=== PATIENT | female | born 1945 | race Two or more races ===

== ENCOUNTER 2022-06-13 16:03 | Inpatient (IN) | payer OTHER, MEDICARE ==
[~2022-06-13] VITALS: Ht 157.5 cm; Wt 55.3 kg
[2022-06-13] MEDS: NACL 0.9% 1,000 ML IV SCH (01:15)
[2022-06-13 16:05] VITALS: BP 101/45
--- NOTE | 2022-06-13 16:18 | NUR ---
ASSUMED PATIENT CARE, NURSING ASSESSMENT COMPLETED.
[2022-06-13] MEDS ORDERED: NACL 0.9% 2,000 ML IV ONE (16:35)
[2022-06-13 17:26] LABS: HEMOGLOBIN 10.5 g/dL (12.0-16.0); MEAN CORPUSCULAR HEMOGLOBIN 26 pg (27-31); MEAN CORPUSCULAR HGB CONC 31 g/dL (33-37); MEAN CORPUSCULAR VOLUME 83.6 fL (80-94); PLATELET COUNT (AUTO) 316 K/uL (140-450); RED BLOOD CELL COUNT(AUTO) 4.06 MIL/uL (4.20-5.40); RED CELL DISTRIBUTION WIDTH 21.5 % (11.6-13.7)
[2022-06-13 17:29] LABS: WHITE BLOOD COUNT (AUTO) 32.2 K/uL (4.8-10.8)
--- NOTE | 2022-06-13 17:42 | NUR ---
CT SCAN COMPLETED. BACK FROM CT.
[2022-06-13 17:43] LABS: PROTHROMBIN TIME 11.1 secs (10.8-13.4)
[2022-06-13 17:46] LABS: ANION GAP 13.1 (8-16); ASPARTATE AMINOTRANSFERASE 62 U/L (15-37); CARBON DIOXIDE 25.9 mmol/L (21-32); CHLORIDE 105 mmol/L (98-107); CREATININE 1.9 mg/dL (0.6-1.3); GLUCOSE 167 mg/dL (74-106); MAGNESIUM 2.4 mg/dL (1.8-2.4); PHOSPHORUS 4.2 mg/dL (2.5-4.9); SODIUM SERUM 140 mmol/L (136-145); TOTAL BILIRUBIN 0.3 mg/dL (0.0-1.0)
[2022-06-13 17:47] LABS: UREA NITROGEN, BLOOD 85 mg/dL (7-18)
[2022-06-13 17:56] LABS: LYMPHOCYTES % (MANUAL) 4 % (20-46)
[2022-06-13 17:57] LABS: METAMYELOCYTES % 1 % (0-0); MONOCYTES % (MANUAL) 2 % (5-12)
[2022-06-13] MEDS ORDERED: metroNIDAZOLE 500 MG/NS PREMIX 100 ML IV ONE (18:05)
[2022-06-13] MEDS ORDERED: PIPERACILLIN/TAZOBACTAM 3.375 GM in DEXTROSE 5% 50 ML IV ONE (18:05)
[2022-06-13 18:27] LABS: APPEARANCE,URINE CLEAR (CLEAR); BILIRUBIN,URINE 1+ (NEGATIVE); BLOOD, URINE 3+ (NEGATIVE); COLOR,URINE YELLOW (YELLOW); LEUKOCYTE ESTERASE ,URINE 1+ (NEGATIVE); NITRITE, URINE POSITIVE (NEGATIVE); PH,URINE 5.5 (5.0-9.0); UGLUCOSE NEGATIVE (NEGATIVE)
[2022-06-13] MEDS ORDERED: PIPERACILLIN/TAZOBACTAM 3.375 GM VIAL IV ONE (18:41)
[2022-06-13 18:43] LABS: RBC,URINE 11-20 (MOD) /HPF (0-5)
[2022-06-13 18:44] LABS: CALCIUM OXALATE CRYSTALS,UR 0-10 /HPF (None Seen)
--- NOTE | 2022-06-13 19:17 | NUR ---
Received report from LIS Finley and continue care of patient.
[2022-06-13] MEDS ORDERED: BISA-218 RC (19:37)
[2022-06-13] MEDS ORDERED: ZINC220C9 GT (19:37)
[2022-06-13] MEDS ORDERED: NUTR30LI2 GT (19:37)
[2022-06-13] MEDS ORDERED: GABA300C GT (19:37)
[2022-06-13] MEDS ORDERED: LOSA100T2 GT (19:37)
[2022-06-13] MEDS ORDERED: ATOR10TA GT (19:37)
[2022-06-13] MEDS ORDERED: ASCO-5 GT (19:37)
[2022-06-13] MEDS ORDERED: DONE5TAB6 GT (19:37)
[2022-06-13] MEDS ORDERED: ESCI10TA GT (19:37)
[2022-06-13] MEDS ORDERED: DOCU-299 GT (19:37)
[2022-06-13] MEDS ORDERED: AMIO100T3 GT (19:38)
--- NOTE | 2022-06-13 19:38 | NUR ---
Med-rec reviewed.
--- NOTE | 2022-06-13 20:32 | NUR ---
COVID-19 swab collected and sent to lab.
--- NOTE | 2022-06-13 20:38 | NUR ---
Called Bridget (Grand Daughter) [phone] to update patient's status.
[2022-06-13] MEDS ORDERED: NACL 0.9% 1,000 ML IV ONE (20:45)
--- NOTE | 2022-06-13 20:45 | NUR ---
Patient BP 88/40 , Dr. De La Cruz notified.
--- NOTE | 2022-06-13 20:47 | NUR ---
Spoke with Jeanette Mccormick (Daughter) to update patient status.
[2022-06-13] MEDS ORDERED: HYDROmorphone 1 MG/ML AMP IVP PRN (21:15)
[2022-06-13] MEDS ORDERED: ACETAMINOPHEN 325 MG TAB PO PRN (21:15)
[2022-06-13] MEDS ORDERED: HYDROcodone/APAP 5/325 MG 1 TAB TAB PO PRN (21:15)
[2022-06-13] MEDS ORDERED: ONDANSETRON 4 MG/2 ML VIAL IVP PRN (21:15)
--- NOTE | 2022-06-13 21:40 | NUR ---
Telephone consent with patient's family (Jeanette Jace-Daughter) , please see consent form.
--- NOTE | 2022-06-13 21:53 | NUR ---
Dr. De La Cruz at bedside for procedure- Central line placement.
--- NOTE | 2022-06-13 22:35 | NUR ---
Patient had one bowel movement and cleaned and change diaper.
--- NOTE | 2022-06-13 22:40 | NUR ---
Removed washington's cath
--- NOTE | 2022-06-13 22:41 | NUR ---
# 16 FR Greene catheter with 10 ml utilizing sterile technique. Immediate return of 10 ml yellow, cloudy urine noted. Bedside drainage bag placed below level of bladder. Urine sample collected and sent to lab. Pt tolerated procedure well.
[2022-06-13] MEDS ORDERED: NOREPINEPHRINE 4 MG in DEXTROSE 5% 250 ML IV PRN (22:45)
--- NOTE | 2022-06-13 22:51 | NUR ---
DR. CAMACHO IN DEPARTMENT SPEAKING WITH ER DR. ROCHE
[2022-06-13] MEDS: LINEZOLID 600MG PREMIX 300 ML IV SCH (22:55)
[2022-06-13] MEDS ORDERED: NOREPINEPHRINE 4 MG/4 ML VIAL IV ONE ×2 (23:17→23:18)
[2022-06-14] VITALS (15 sets, daily range): BP systolic 94–162; BP diastolic 50–94
--- NOTE | 2022-06-14 00:16 | NUR ---
Report given to LIS Neal and endorse care of patient.
--- NOTE | 2022-06-14 00:47 | NUR ---
TRANSFER OF CARE FROM FRANNIE, RN. VITALS AT TIME OF TRANSFER: HR = 134, O2 SAT = 100%, R = 14, BP = 77/40, PATIENT IS RECEIVING SUPPLEMENTAL OXYGEN, 4L VIA NC. PATIENT HAS CENTRAL LINE, RIGHT GROIN. CURRENTLY RECEIVING LEVOPHED 4, @ 4MCG/MIN. WILL CONTINUE TO MONITOR PATIENT FOR ANY CHANGE IN CONDITION.
--- NOTE | 2022-06-14 01:09 | NUR ---
AXILLARY TEMP = 98.8F
--- NOTE | 2022-06-14 04:22 | NUR ---
PAGE SENT TO ADULT FAMILY HOME PROGRAM MANAGER MD (DR. OLEA) REGARDING PATIENT'S INCREASING TACHYCARDIA
--- NOTE | 2022-06-14 04:50 | NUR ---
PHONE CALL RECEIVED FROM PATIENT'S GRAND-DTRBOGDAN. PROVIDED CURRENT UPDATE, ALL QUESTIONS ANSWERED
--- NOTE | 2022-06-14 04:55 | NUR ---
RECEIVED CALL BACK FROM DR. LINTON, REGARDING PATIENT'S TACHYCARDIA. PATIENT WITH INCREASING HEART RATE RANGING FROM THE LOW 100'S TO THE HIGH 150'S. MD NOTIFIED, NO NEW ORDER FOR TREATMENT PROVIDER. PATIENT NEEDS CONSULT WITH CARDIOLOGY. REQUEST HAS BEEN SUBMITTED. WILL CONTINUE TO MONITOR PATIENT FOR ANY CHANGES IN CONDITION
[2022-06-14] MEDS: metroNIDAZOLE 500 MG/NS PREMIX 100 ML IV SCH ×3 (05:00→20:45)
[2022-06-14] MEDS ORDERED: PIPERACILLIN/TAZOBACTAM 2.25 GM VIAL IV ONE (05:07)
[2022-06-14] MEDS: HYDROCORTISONE NA SUCC 100 MG/2 ML VIAL IV SCH ×3 (05:20→20:49)
[2022-06-14] MEDS: PIPERACILLIN/TAZOBACTAM 2.25 GM in DEXTROSE 5% 50 ML IV SCH ×3 (05:20→20:50)
--- NOTE | 2022-06-14 05:34 | NUR ---
Abelino guerrero in [facility] - 06/14/22 at [address] Agudelo examining patient.
[2022-06-14] MEDS ORDERED: NOREPINEPHRINE 4 MG/4 ML VIAL IV ONE (08:24)
--- NOTE | 2022-06-14 08:31 | NUR ---
BEDSIDE REPORT TO SABRINA IN ICU 8. AWAKE AND ALERT X 1, SAMI SPEAKING COOPERATIVE WITH CARE, NO COMBATIVE AND NOT PULLING LINES. CONTACT PRECAUTIONS NOTED DUE TO REPORTED HISTORY OF DIARRHEA. LEVOPHED INFUSING TO R GROIN TRIPLE LUMEN CATHETER
--- NOTE | 2022-06-14 08:39 | NUR ---
Patient will be admitted to care of SABRINA. Admited to ICU 8ICU. Will go to room. Belongings list completed. Report to .
--- NOTE | 2022-06-14 08:40 | NUR ---
Received bedside report from ED RN, patient is awake and alert, mauritian speaking, oriented to self. Patient denies pain at present. Telemetry reveals AF RVR 130's, patient has Levophed infusing via right femoral TLC for BP support. During repositioning and skin assessment, patient noted with unstageable sacral wound, wound cleaned, packed with wet to dry and photographed. Also MAD noted to perineum. Greene in place, dominic urine noted. Will continue to monitor patient.
[2022-06-14 08:41] LABS: ALBUMIN 1.9 g/dL (3.4-5.0); ASPARTATE AMINOTRANSFERASE 75 U/L (15-37); CARBON DIOXIDE 21.4 mmol/L (21-32); CHLORIDE 110 mmol/L (98-107); GLUCOSE 156 mg/dL (74-106); POTASSIUM 3.4 mmol/L (3.5-5.1); SODIUM SERUM 142 mmol/L (136-145); TOTAL BILIRUBIN 0.2 mg/dL (0.0-1.0); UREA NITROGEN, BLOOD 60 mg/dL (7-18)
[2022-06-14 08:48] LABS: BASOPHILS # (AUTO) 0.1 K/uL (0.00-0.22); BASOPHILS % (AUTO) 0.3 % (0.0-2.0); EOSINOPHILS # (AUTO) 0.1 K/uL (0-0.4); EOSINOPHILS % (AUTO) 0.3 % (0.0-4.0); HEMATOCRIT 32.7 % (36-48); HEMOGLOBIN 10.1 g/dL (12.0-16.0); LYMPHOCYTES # (AUTO) 0.7 K/uL (2.5-16.5); LYMPHOCYTES % (AUTO) 2.7 % (20.5-51.1); MEAN CORPUSCULAR HEMOGLOBIN 26 pg (27-31); MEAN CORPUSCULAR HGB CONC 31 g/dL (33-37); MONOCYTES # (AUTO) 3.1 K/uL (0.8-1.0); MONOCYTES % (AUTO) 12.7 % (1.7-9.3); NEUTROPHILS # (AUTO) 20.4 K/uL (1.8-7.7); PLATELET COUNT (AUTO) 335 K/uL (140-450); RED BLOOD CELL COUNT(AUTO) 3.94 MIL/uL (4.20-5.40); RED CELL DISTRIBUTION WIDTH 20.9 % (11.6-13.7); WHITE BLOOD COUNT (AUTO) 24.2 K/uL (4.8-10.8)
--- NOTE | 2022-06-14 09:13 | NUR ---
PATIENT HAS BEEN SCREENED AND CATEGORIZED HIGH NUTRITION RISK. PATIENT WILL BE SEEN WITHIN 1-2 DAYS OF ADMISSION. REVIEWED BY CYDNEY FROST RD
--- NOTE | 2022-06-14 09:30 | NUR ---
Patient is really agitated, and restless, not following commands, pulling at IV sites, electrodes washington and BP cuff. Patient continues behavior despite directives given in Slovak. Patient has removed TLC dressing, dressing replaced. Patient placed in soft wrist restraints. Will continue to monitor.
[2022-06-14] MEDS: NACL 0.9% 1,000 ML IV SCH (09:45)
[2022-06-14] MEDS: DOCUSATE SODIUM 100 MG GELCAP PO SCH (10:31)
[2022-06-14] MEDS: LINEZOLID 600MG PREMIX 300 ML IV SCH ×2 (10:32→20:50)
[2022-06-14] MEDS: LORazepam 1 MG TAB PO PRN (10:32)
[2022-06-14] MEDS ORDERED: PHENYLEPHRINE 10 MG in NACL 0.9% 250 ML IV PRN (11:40)
[2022-06-14] MEDS ORDERED: NOREPINEPHRINE 16 MG in DEXTROSE 5% 250 ML IV PRN (12:00)
[2022-06-14] MEDS ORDERED: KCL 20 MEQ IN 100 mL PREMIX 100 ML IV SCH (12:00)
[2022-06-14] MEDS: AMIODARONE 450 MG in DEXTROSE 5% 250 ML IV SCH ×2 (12:36→20:00)
--- NOTE | 2022-06-14 12:51 | NUR ---
DC PLANNIN YRS OLD FEMALE PATIENT WAS ADMITTED FROM [facility] WITH A DX OF SEPTIC SHOCK. PATIENT HAS A HX OF DEMENTIA, CHRONIC RESP FAILURE CHF, A-FIB, HTN AND STAGE 4 DECUBITUS ULCER AND C-DIFF COLITIS. CXR SHOWED MILD BIBASILAR ATELECTASIS. RAPID COVID TEST NEGATIVE. CT ABD SHOWED WALL THICKENING OF DESCENDING COLON. WBC 32.2 , LACTIC ACID 2.7. BLOOD AND URINE CULTURE PENDING. ADMITTED TO ICU FOR AMIODARONE AND PHENYLEPHRINE DRIP AND IVF, IV ABX FLAGYL AND ZOSYN. CONSULTED WITH CARDIO, PULMO AND ID . DC PLAN TO RETURN TO [facility] WHEN STABLE . CM TO FOLLOW
[2022-06-14] MEDS ORDERED: PHENYLEPHRINE 10 MG/ML VIAL IV PRN (13:30)
[2022-06-14] MEDS ORDERED: PHENYLEPHRINE 40 MG in NACL 0.9% 250 ML IV SCH (13:35)
[2022-06-14] MEDS ORDERED: PHENYLEPHRINE 40 MG in NACL 0.9% 250 ML IV PRN (13:35)
--- NOTE | 2022-06-14 15:46 | NUR ---
DC PLANNING ASSESSMENT COMPLETE PLEASE REFER TO ASSESSMENT FOR DETAILS PER NOTES PT HAS HX OF DEMENTIA, THEREFORE COLLAT INFO GATHERED FROM [place], [facility] ADMIN AND ANTHONY ALICEA, PTS DAUGHTER PT IS 76 YR OLD FEMALE ADMITTED TO [facility] FROM [facility] WITH DX OF SEPTIC SHOCK. PT HAS PAST MEDICAL HX OF DEMENTIA, CHRONIC RESPIRATORY FAILURE, CHF, A-FIB, HYPERTENSION, HYPERLIPIDEMIA, AND STAGE IV SACRAL ULCER. ANTHONY REPORTS PT HAS POA, PRO MOISE, IS REPORTED TO BE NAMING AGENT. SW REQUESTED FAMILY BRING IN COPY OF POA SO THAT COPY CAN BE ADDED TO PTS CHART. ANTHONY REPORTS SHE WILL SPEAK TO BROTHER TO PROVIDE COPY. PT IS REPORTED TO BE WC BOUND AND REQUIRES ASSISTANCE WITH ADL'S THAT [facility] AIDS WITH. PT CURRENTLY RECEVING SKILLED CARE WITH [facility], ADMISSION DATE; 06/06/22. PT RECEIVING PT, OTST. FLORIAN AND PTS DAUGHTER ANTHONY, REPORT DC PLAN IS FOR PT TO RETURN TO [facility] TO CONTINUE SKILLED CARE. Addendum: 06/14/22 at 1548 by Alisha DICKERSON Amended: Links added.
--- NOTE | 2022-06-14 16:52 | NUR ---
06/14/22 RD INITIAL ASSESSMENT COMPLETED PLEASE REFER TO NUTRITION ASSESSMENT UNDER CARE ACTIVITY FOR ESTIMATED NUTRITIONAL NEEDS. 1. RECOMMEND CARDIAC MECHANICAL SOFT DIET TOLERATED 2. RECOMMEND MANUEL BID FOR WOUND SUPPORT - PROVIDES 160 KCAL AND 5 GM PROTEIN DAILY 3. RECOMMEND ENSURE BID -PROVIDES 700 KCAL AND [address] TO FOLLOW-UP 3-5 DAYS, MODERATE RISK REVIEWED BY CYDNEY FROST RD
--- NOTE | 2022-06-14 19:02 | NUR ---
Patient is resting in bed, no distress noted, bilateral soft wrist restraints remain in place. AFib noted on telemetry, rate 89-110, Phenylephrine infusing for BP support. Patient is denies pain at present. Report given to oncoming RN.
--- NOTE | 2022-06-14 20:00 | NUR ---
ASSUMED CARE OF THIS PATIENT AND ASSESSMENT DONE AND COMPLETED.AWAKE AND ALERT X1.AFEBRILE.REMAINS ASYMPTOMATIC OF ANY PAIN AND DISCOMFORT. LUNG SOUNDS CLEAR TO AUSCULTATION ON BILATERAL LUNG LAUGHLIN.AFIB ON THE MONITOR HR 101 .ON AMIODARONE DRIP AT 0.5 AND NEOSYNEPRINE DRIP [id number].ABDOMEN ROAND NON TENDER .ALL PULSES PRESENT AND PALPABLE..FOLWEY IN PLACE DRAINING ADEQUATE AMOUNT OF URINE.RIGHT FEMORAL TRIPLE LUMEN IN PLACE,PATENT ,INTACT AND BENIGN.WILL CONTINUE WITH PRESENT PLAN OF CARE.
[2022-06-14] MEDS: FAMOTIDINE 20 MG/2 ML VIAL IV SCH (20:47)
--- NOTE | 2022-06-14 22:15 | NUR ---
BERE MONET WAS MADE AWARE THAT PATIENT'S HR WAS 65 AND AMIODARONE DRIP WAS LUCHO SANTOS.
[2022-06-14] MEDS: VANCOMYCIN HCL 25 MG/ML SOLN PO SCH (23:38)
[2022-06-15] VITALS (17 sets, daily range): BP systolic 108–141; BP diastolic 32–86
[2022-06-15] MEDS ORDERED: VANCOMYCIN 1,000 MG VIAL PO SCH
[2022-06-15] MEDS: metroNIDAZOLE 500 MG/NS PREMIX 100 ML IV SCH ×3 (05:13→21:44)
[2022-06-15] MEDS: HYDROCORTISONE NA SUCC 100 MG/2 ML VIAL IV SCH ×3 (05:14→22:01)
[2022-06-15] MEDS: PIPERACILLIN/TAZOBACTAM 2.25 GM in DEXTROSE 5% 50 ML IV SCH ×3 (05:16→21:00)
[2022-06-15] MEDS: VANCOMYCIN HCL 25 MG/ML SOLN PO SCH ×3 (05:16→17:53)
[2022-06-15 05:55] LABS: BASOPHILS % (AUTO) 0.1 % (0.0-2.0); HEMATOCRIT 29.9 % (36-48); HEMOGLOBIN 9.6 g/dL (12.0-16.0); LYMPHOCYTES # (AUTO) 0.9 K/uL (2.5-16.5); LYMPHOCYTES % (AUTO) 3.8 % (20.5-51.1); MEAN CORPUSCULAR HEMOGLOBIN 26 pg (27-31); MEAN CORPUSCULAR HGB CONC 32 g/dL (33-37); MEAN CORPUSCULAR VOLUME 80.4 fL (80-94); MONOCYTES % (AUTO) 8.1 % (1.7-9.3); NEUTROPHILS # (AUTO) 21.3 K/uL (1.8-7.7); PLATELET COUNT (AUTO) 306 K/uL (140-450); RED BLOOD CELL COUNT(AUTO) 3.72 MIL/uL (4.20-5.40); RED CELL DISTRIBUTION WIDTH 21.1 % (11.6-13.7); WHITE BLOOD COUNT (AUTO) 24.2 K/uL (4.8-10.8)
[2022-06-15] MEDS ORDERED: Z-GUARD PASTE TP PRN (06:05)
[2022-06-15] MEDS ORDERED: THERAHONEY GEL 42.5 GM TP PRN ×2 (06:05→07:08)
[2022-06-15 06:56] LABS: ANION GAP 13.9 (8-16); ASPARTATE AMINOTRANSFERASE 20 U/L (15-37); CARBON DIOXIDE 20.5 mmol/L (21-32); CHLORIDE 108 mmol/L (98-107); CREATININE 0.8 mg/dL (0.6-1.3); GLUCOSE 122 mg/dL (74-106); MAGNESIUM 1.7 mg/dL (1.8-2.4); POTASSIUM 3.4 mmol/L (3.5-5.1); SODIUM SERUM 139 mmol/L (136-145); UREA NITROGEN, BLOOD 32 mg/dL (7-18)
[2022-06-15] MEDS: NACL 0.9% 1,000 ML IV SCH (08:49)
[2022-06-15] MEDS ORDERED: PANTOPRAZOLE 40 MG INJ VIAL IVP SCH (09:00)
[2022-06-15] MEDS: FAMOTIDINE 20 MG/2 ML VIAL IV SCH ×2 (10:09→21:45)
[2022-06-15] MEDS: DOCUSATE SODIUM 100 MG GELCAP PO SCH (10:11)
[2022-06-15] MEDS: LINEZOLID 600MG PREMIX 300 ML IV SCH ×2 (10:11→21:00)
[2022-06-15] MEDS: AMIODARONE 200 MG TAB PO SCH (12:14)
[2022-06-15] MEDS ORDERED: POTASSIUM CHLORIDE 10 MEQ TABER PO SCH (14:30)
[2022-06-15] MEDS ORDERED: MAG SULF 2000 MG/WATER PREMIX 50 ML IV SCH (14:30)
--- NOTE | 2022-06-15 16:31 | NUR ---
Patient is awake and alert, no apparent distress noted. VSS on telemetry. Bilateral soft wrist restraints remain in place for safety, no signs of injury noted. Daughter, Connie at bedside new room notification given. Report called to Adam, receiving RN. Patient is transferred via bed with telemetry monitoring, accompanied by BIAS MACHINE OPERATOR HELPER and 2 student nurses. Patient tolerated transport well.
--- NOTE | 2022-06-15 16:40 | NUR ---
RECEIVED PATIENT ROM ICU. ALERT AND CONFUSED, BILATERAL SOFT WRISTS RESTRAINTS IN PLACE FOR SAFETY, CHECKED AND RELEASED FOR 15 MINUTES WITH NO INJURY NOTED, PATIENT IS AGITATED, TRYING TO GET OUT OF BED AND PULLING TUBINGS, REORIENTED TO REALITY,ASSESSMENT DONE AND DOCUMENTED, WILL CONTINUE TO MONITOR.
[2022-06-15] MEDS: LORazepam 1 MG TAB PO PRN (16:41)
--- NOTE | 2022-06-15 16:41 | NUR ---
P.T. NOTES P.T. EVAL COMPLETED; REFER TO EVAL FOR DETAILS.
[2022-06-16] MEDS: PIPERACILLIN/TAZOBACTAM 2.25 GM in DEXTROSE 5% 50 ML IV SCH (05:00)
[2022-06-16] MEDS: HYDROCORTISONE NA SUCC 100 MG/2 ML VIAL IV SCH ×3 (05:00→20:52)
[2022-06-16] MEDS: metroNIDAZOLE 500 MG/NS PREMIX 100 ML IV SCH ×3 (05:00→20:38)
[2022-06-16] MEDS: VANCOMYCIN HCL 25 MG/ML SOLN PO SCH ×3 (06:39→12:41)
[2022-06-16 07:30] LABS: BASOPHILS % (AUTO) 0.1 % (0.0-2.0); HEMATOCRIT 32.2 % (36-48); HEMOGLOBIN 10.2 g/dL (12.0-16.0); LYMPHOCYTES # (AUTO) 0.9 K/uL (2.5-16.5); LYMPHOCYTES % (AUTO) 4.2 % (20.5-51.1); MEAN CORPUSCULAR HEMOGLOBIN 26 pg (27-31); MEAN CORPUSCULAR HGB CONC 32 g/dL (33-37); MEAN CORPUSCULAR VOLUME 81.9 fL (80-94); MONOCYTES # (AUTO) 1.5 K/uL (0.8-1.0); MONOCYTES % (AUTO) 6.8 % (1.7-9.3); NEUTROPHILS # (AUTO) 19.2 K/uL (1.8-7.7); NEUTROPHILS % (AUTO) 88.9 % (42.2-75.2); PLATELET COUNT (AUTO) 280 K/uL (140-450); RED BLOOD CELL COUNT(AUTO) 3.93 MIL/uL (4.20-5.40); RED CELL DISTRIBUTION WIDTH 20.7 % (11.6-13.7); WHITE BLOOD COUNT (AUTO) 21.7 K/uL (4.8-10.8)
[2022-06-16 07:55] LABS: ANION GAP 10.5 (8-16); ASPARTATE AMINOTRANSFERASE 20 U/L (15-37); CARBON DIOXIDE 23.1 mmol/L (21-32); CHLORIDE 107 mmol/L (98-107); CREATININE 0.7 mg/dL (0.6-1.3); GLUCOSE 100 mg/dL (74-106); MAGNESIUM 2.4 mg/dL (1.8-2.4); POTASSIUM 3.6 mmol/L (3.5-5.1); SODIUM SERUM 137 mmol/L (136-145); UREA NITROGEN, BLOOD 33 mg/dL (7-18)
[2022-06-16 08:00] VITALS: BP 152/52
[2022-06-16] MEDS: DOCUSATE SODIUM 100 MG GELCAP PO SCH (09:00)
[2022-06-16] MEDS: LINEZOLID 600MG PREMIX 300 ML IV SCH ×2 (10:18→21:54)
[2022-06-16] MEDS: FAMOTIDINE 20 MG/2 ML VIAL IV SCH ×2 (10:19→20:40)
[2022-06-16] MEDS: AMIODARONE 200 MG TAB PO SCH (10:19)
[2022-06-16 12:00] VITALS: BP 140/60
[2022-06-16] MEDS: PIPERACILLIN/TAZOBACTAM 3.375 GM in DEXTROSE 5% 50 ML IV SCH ×2 (12:41→21:54)
--- NOTE | 2022-06-16 13:15 | NUR ---
WOUND CARE EVALUATION NOTES: REASON FOR EVALUATION: SACRALCOCCYX PRESSURE ULCER WOUND ASSESSMENT COMPLETED ON THIS 76 Y/O FEMALE ADMITTED TO [facility] FOR SEPTICK SHOCK. PATIENT IS FROM [facility]. PAST MEDICAL HISTORY INCLUDES DEMENTIA, CHRONIC RESPIRATORY FAILURE, CHRONIC CONGESTIVE HEART FAILURE, AFIB, HTN, STAGE 4 SACRAL DECUBITUS ULCER, CDIFF HISTORY. ALL ABOVE INFORMATION WAS OBTAINED FROM THE ADMISSION H&P. PATIENT IS AAOX1, VERBAL, CONFUSED. SKIN IS WARM TO TOUCH. HAS GENERALIZED BILATERAL UPPER EXTREMITY ECCHYMOSIS. ORAL MUCOSAL MEMBRANES DRY. RIGHT FEMORAL CENTRAL LINE IN PLACE. REQUIRES ASSISTANCE WITH TURNING. PLAN OF CARE AND PRESSURE PREVENTATIVE MEASURES DISCUSSED WITH PATIENT AND PRIMARY RN. PATIENT UNABLE TO COMPREHEND, CONFUSED AND FORGETFUL. PATIENT ADMITTED WITH PRESSURE ULCER TO [facility] AND GENERALIZED UPPER EXTREMITY ECCHYMOSIS. COMORBIDITIES RELATED TO FURTHER SKIN BREAKDOWN SUCH IMPAIRED MOBILITY AND DECREASED FUNCTIONAL ABILITY, AND S/S OF DEHYDRATION. INTEGUMENTARY: - SACRALCOCCYX STAGE 4 PRESSURE ULCER 5 X 5 X 1 CM WITH 2 CM UNDERMINING FROM 10 TO 3 O'CLOCK. WOUND BED MOIST, LESS THAN 20% SLOUGH, NO ODOR, MINIMAL SEROUS DISCHARGE. PERIWOUND DRY, PINK, INTACT. - PERINEAL AREA INCONTINENT ASSOCIATED DERMATITIS WITH SMALL, OPEN DENUDED SKIN. NO DISCHARGE OR ODOR. RECOMMENDATIONS: - SACRALCOCCYX STAGE 4 PRESSURE ULCER: CLEANSE WITH WOUND CLEANSER, PAT DRY, APPLY THERAHONEY, LIGHTLY PACK WITH GAUZE, AND COVER WITH FOAM DRESSING DAILY AND PRN IF SOILED. - PERINEAL AREA INCONTINENT ASSOCIATED DERMATITIS: CLEANSE WITH NS, PAT DRY, APPLY Z-GAURD, AND LEAVE FENCE POST CUTTER DAILY AND PRN IF SOILED. - OFFLOAD BILATERAL HEELS BY PLACING BILATERAL HEEL PROTECTORS. - TURN AND REPOSITION PATIENT Q2H TO LEFT AND RIGHT SIDE TO OFFLOAD SACRALCOCCYX. - ASSESS AND MONITOR SKIN CONDITION DURING POSITION CHANGE. PLEASE PAY ATTENTION TO SACRALCOCCYX AND HEELS. - KEEP SKIN DRY AND CLEAN AT ALL TIMES. - RD CONSULT RECOMMENDATIONS DISCUSSED WITH PRIMARY RN. WILL FOLLOW-UP PATIENT Q7-10 DAYS AND PRN. PLEASE CONTACT WOUND CARE NURSE FOR ANY CONCERNS AND CHANGES IN WOUND CONDITION.
[2022-06-16] MEDS: NACL 0.9% 1,000 ML IV SCH (13:25)
[2022-06-16 16:00] VITALS: BP 130/68
--- NOTE | 2022-06-16 16:00 | NUR ---
pt awake,confused,patient had severe adverse reactions to vancomycin per family called and notfied,d/c vancomycin per dr order.left hand swelling noted restraints off,and elevated with pillow and applied warm towel.total care provided safety maintained.continue to monitor pt.
[2022-06-16 20:00] VITALS: BP 142/72
--- NOTE | 2022-06-16 20:56 | NUR ---
scheduled medications given. no acute drug reaction noted. all precautions in place.hob elevated.will continue to monitor.
[2022-06-17] VITALS: BP 132/67
[2022-06-17] MEDS: Z-GUARD PASTE TP SCH ×2 (01:15→12:56)
[2022-06-17] MEDS: THERAHONEY GEL 42.5 GM TP SCH ×2 (01:15→12:56)
[2022-06-17] MEDS: MUPIROCIN CA NASAL 2% 1GM TUBE NS SCH (03:10)
[2022-06-17] MEDS: CHLORHEXADINE GLUC 2% CLOTH TP SCH (03:10)
[2022-06-17 04:00] VITALS: BP 146/50
[2022-06-17] MEDS: PIPERACILLIN/TAZOBACTAM 3.375 GM in DEXTROSE 5% 50 ML IV SCH ×3 (04:45→21:47)
[2022-06-17] MEDS: HYDROCORTISONE NA SUCC 100 MG/2 ML VIAL IV SCH ×3 (04:45→21:46)
[2022-06-17] MEDS: metroNIDAZOLE 500 MG/NS PREMIX 100 ML IV SCH ×3 (04:45→21:45)
[2022-06-17 06:29] LABS: BASOPHILS % (AUTO) 0.3 % (0.0-2.0); EOSINOPHILS # (AUTO) 0.2 K/uL (0-0.4); EOSINOPHILS % (AUTO) 1.2 % (0.0-4.0); HEMATOCRIT 31.5 % (36-48); HEMOGLOBIN 9.9 g/dL (12.0-16.0); LYMPHOCYTES # (AUTO) 1.1 K/uL (2.5-16.5); MEAN CORPUSCULAR HEMOGLOBIN 26 pg (27-31); MEAN CORPUSCULAR HGB CONC 32 g/dL (33-37); MEAN CORPUSCULAR VOLUME 82.4 fL (80-94); MONOCYTES # (AUTO) 1.6 K/uL (0.8-1.0); MONOCYTES % (AUTO) 8.4 % (1.7-9.3); NEUTROPHILS # (AUTO) 16.4 K/uL (1.8-7.7); PLATELET COUNT (AUTO) 269 K/uL (140-450); RED BLOOD CELL COUNT(AUTO) 3.82 MIL/uL (4.20-5.40); RED CELL DISTRIBUTION WIDTH 20.3 % (11.6-13.7); WHITE BLOOD COUNT (AUTO) 19.4 K/uL (4.8-10.8)
[2022-06-17 07:12] LABS: ALBUMIN 1.9 g/dL (3.4-5.0); ANION GAP 11.3 (8-16); ASPARTATE AMINOTRANSFERASE 73 U/L (15-37); CARBON DIOXIDE 23.4 mmol/L (21-32); CHLORIDE 107 mmol/L (98-107); CREATININE 0.8 mg/dL (0.6-1.3); GLUCOSE 107 mg/dL (74-106); MAGNESIUM 2.2 mg/dL (1.8-2.4); POTASSIUM 3.7 mmol/L (3.5-5.1); SODIUM SERUM 138 mmol/L (136-145); TOTAL BILIRUBIN 0.1 mg/dL (0.0-1.0); UREA NITROGEN, BLOOD 32 mg/dL (7-18)
[2022-06-17 07:27] LABS: LYMPHOCYTES % (AUTO) 5.5 % (20.5-51.1); NEUTROPHILS % (AUTO) 84.6 % (42.2-75.2)
--- NOTE | 2022-06-17 07:36 | NUR ---
GOT REPORT FROM THE NIGHT NURSE, PT SLEEPING, NO SOB NOTED.[id number]
[2022-06-17 08:00] VITALS: BP 149/75
[2022-06-17] MEDS: FAMOTIDINE 20 MG/2 ML VIAL IV SCH ×2 (08:45→21:45)
[2022-06-17] MEDS: DOCUSATE SODIUM 100 MG GELCAP PO SCH (08:45)
[2022-06-17] MEDS: AMIODARONE 200 MG TAB PO SCH (08:45)
[2022-06-17] MEDS: LINEZOLID 600MG PREMIX 300 ML IV SCH ×2 (08:46→21:47)
[2022-06-17] MEDS: NACL 0.9% 1,000 ML IV SCH (08:46)
[2022-06-17] MEDS: VANCOMYCIN HCL 25 MG/ML SOLN GT SCH ×3 (11:33→23:41)
[2022-06-17 13:00] VITALS: BP 123/57
[2022-06-17 16:00] VITALS: BP 137/63
--- NOTE | 2022-06-17 19:04 | NUR ---
GAVE REPORT TO THE NIGHT NURSE.[id number]
--- NOTE | 2022-06-17 19:15 | NUR ---
RECEIVED REPORT FROM DAY RN FOR CONTINUITY OF CARE. AWAKE,RESTING IN BED. FAMILY AT BEDSIDE. ON CEMENT BASED MATERIALS PUMP TENDER. RESPIRATIONS EVEN AND UNLABORED ON RA. DIAMOND CATHETER IN PLACE, DRAINING WELL. G-TUBE IN PLACE. FLUSHING WELL. PICC ON R FEMORAL LINE TRIPLE LUMEN RUNNING FLUIDS PER MD ORDER.ALL PRECAUTIONS IN PLACE.. CALL LIGHT WITHIN REACH. SAFETY PRECAUTIONS IN PLACE.
[2022-06-17 20:00] VITALS: BP 158/64
--- NOTE | 2022-06-17 21:30 | NUR ---
scheduled medications given. no acute drug reaction noted. all precautions in place.hob elevated.will continue to monitor.
[2022-06-18] VITALS: BP 137/71
[2022-06-18] MEDS: Z-GUARD PASTE TP SCH ×2 (01:04→12:15)
[2022-06-18] MEDS: THERAHONEY GEL 42.5 GM TP SCH ×2 (01:04→12:14)
[2022-06-18 04:00] VITALS: BP 122/58
[2022-06-18] MEDS: CHLORHEXADINE GLUC 2% CLOTH TP SCH (04:07)
[2022-06-18] MEDS: MUPIROCIN CA NASAL 2% 1GM TUBE NS SCH (04:07)
[2022-06-18] MEDS: PIPERACILLIN/TAZOBACTAM 3.375 GM in DEXTROSE 5% 50 ML IV SCH ×2 (04:08→12:14)
[2022-06-18] MEDS: metroNIDAZOLE 500 MG/NS PREMIX 100 ML IV SCH (04:44)
[2022-06-18] MEDS: HYDROCORTISONE NA SUCC 100 MG/2 ML VIAL IV SCH (04:44)
[2022-06-18] MEDS: VANCOMYCIN HCL 25 MG/ML SOLN GT SCH ×2 (05:53→12:00)
--- NOTE | 2022-06-18 06:28 | NUR ---
PT IS STABLE. NO ACUTE EVENTS THROUGHOUT THE NIGHT.ALL NEEDS ATTENDED. NO S/SX OF DISTRESS AT THIS TIME. NO COMPLAINS OF PAIN. ALL PRECAUTIONS IN PLACE. CALL LIGHT WITHIN REACH. WILL ENDORSE TO DAY SHIFT NURSE.
[2022-06-18 07:12] LABS: EOSINOPHILS # (AUTO) 0.1 K/uL (0-0.4); EOSINOPHILS % (AUTO) 0.9 % (0.0-4.0); HEMATOCRIT 33.1 % (36-48); HEMOGLOBIN 10.5 g/dL (12.0-16.0); LYMPHOCYTES # (AUTO) 0.7 K/uL (2.5-16.5); LYMPHOCYTES % (AUTO) 4.8 % (20.5-51.1); MEAN CORPUSCULAR HEMOGLOBIN 26 pg (27-31); MEAN CORPUSCULAR HGB CONC 32 g/dL (33-37); MEAN CORPUSCULAR VOLUME 81.3 fL (80-94); MONOCYTES # (AUTO) 1.7 K/uL (0.8-1.0); MONOCYTES % (AUTO) 11.1 % (1.7-9.3); NEUTROPHILS # (AUTO) 12.9 K/uL (1.8-7.7); NEUTROPHILS % (AUTO) 83.2 % (42.2-75.2); PLATELET COUNT (AUTO) 288 K/uL (140-450); RED BLOOD CELL COUNT(AUTO) 4.08 MIL/uL (4.20-5.40); RED CELL DISTRIBUTION WIDTH 20.3 % (11.6-13.7); WHITE BLOOD COUNT (AUTO) 15.5 K/uL (4.8-10.8)
--- NOTE | 2022-06-18 07:30 | NUR ---
RECEIVED REPORT FROM NIGHTSVAFT NURSE. PT A/O X1, TURKMEN SPEAKING. HOB ELEVATED. NO SOB OR RESPIRATORY DISTRESS. ON RA. ON MECHANICAL SOFT DIET. DIAMOND VIA GRAVITY. NS @ 40 ON R FEMORAL TRIPLE LUMEN. GTUBE DRESSING C/D/I. BILATERAL SOFT RESTRAINTS WITH GOOD C/S/M. NEEDS ALL MET AT THIS TIME. CONTACT PRECAUTIONS FOR MRSA OF NARES/BLOOD. ALL SAFETY MEASURES IN PLACE.
[2022-06-18 07:47] LABS: ALBUMIN 1.9 g/dL (3.4-5.0); ANION GAP 4.1 (8-16); ASPARTATE AMINOTRANSFERASE 31 U/L (15-37); CARBON DIOXIDE 29.3 mmol/L (21-32); CHLORIDE 108 mmol/L (98-107); CREATININE 0.7 mg/dL (0.6-1.3); GLUCOSE 94 mg/dL (74-106); MAGNESIUM 1.8 mg/dL (1.8-2.4); POTASSIUM 3.4 mmol/L (3.5-5.1); SODIUM SERUM 138 mmol/L (136-145); TOTAL BILIRUBIN 0.2 mg/dL (0.0-1.0); UREA NITROGEN, BLOOD 30 mg/dL (7-18)
[2022-06-18 08:00] VITALS: BP 143/65
[2022-06-18] MEDS: NACL 0.9% 1,000 ML IV SCH (08:31)
[2022-06-18] MEDS: LINEZOLID 600MG PREMIX 300 ML IV SCH (08:33)
[2022-06-18] MEDS: AMIODARONE 200 MG TAB PO SCH (08:40)
[2022-06-18] MEDS: DOCUSATE SODIUM 100 MG GELCAP PO SCH (08:40)
[2022-06-18] MEDS: FAMOTIDINE 20 MG/2 ML VIAL IV SCH (08:40)
--- NOTE | 2022-06-18 09:00 | NUR ---
CONTACTED DR. VERA REGARDING PT ALLERGY TO VANCO AND VANCO MEDICATION ORDER. DR. VERA STATES TO CONTINUE MEDICATION.
[2022-06-18] MEDS ORDERED: LINE600T4 PO (10:06)
[2022-06-18] MEDS ORDERED: MUPI2CRE22 NS (10:06)
[2022-06-18] MEDS ORDERED: VANC125C10 PO (10:06)
[2022-06-18] MEDS ORDERED: PIPE1SOL IV (10:16)
[2022-06-18 12:00] VITALS: BP 132/64
[2022-06-18 13:48] VITALS: BP 132/64
--- NOTE | 2022-06-18 14:01 | NUR ---
LUCHO LOPEZ RECEIVED ORDER TO DISCHARGE PT BACK TO SNF FOR IV ANTIBIOTICS FOR 3 DAYS. FAXED ALL PAPERWORK TO [facility] AND [facility]. CALLED [facility] AND SPOKE WITH NADIA WHO GAVE ME SNF AUTH# [id number] AND TRANSPORTATION AUTH#[id number]. SPOKE WITH SUSANNA AT [facility] [address] [id number] PT IS ACCEPTED BACK AND WILL BE GOING TO ROOM 33B UNDER DR ESPINOZA. JOSE F TRANSPORTATION SET UP WITH HIGINIO AT [facility] TRANSPORT . WITH A 1600 COUNSELING SERVICES DIRECTOR TIME. CALLED NURSE LONNY AND DAUGHTER ANTHONY TO INFORM THEM OF THE ABOVE INFORMATION.
--- NOTE | 2022-06-18 14:45 | NUR ---
REPORT GIVEN TO MOSES FROM [facility].
[2022-06-18 16:00] VITALS: BP 144/63
--- NOTE | 2022-06-18 16:32 | NUR ---
DISCHARGE INSTRUCTIONS GIVEN TO FAMILY AT BEDSIDE. VERBALIZED UNDERSTANDING. PT IN NO ACUTE DISTRESS. HOB ELEVATED. R FEMORAL TRIPLE LUMEN SL. DIAMOND VIA GRAVITY. NEEDS ALL MET AT THIS TIME. ALL SAFETY MEASURES IN PLACE.
--- NOTE | 2022-06-18 17:30 | NUR ---
PT DISCHARGED VIA GURNEY BY [facility].
== END 2022-06-18 17:25 | DRG 720 ==
LOC: MED 16:03 → MTU 21:19 → MIC 06-14 05:59 → MTU 06-15 16:00
PROVIDERS: ADMIT Hospitalist; ATTEND Hospitalist
PROC: 0T9B70Z Drainage of Bladder with Drainage Device, Via Natural or Artificial Opening (ICD-10-PCS; principal; 2022-06-13)
PROC: 06HM33Z Insertion of Infusion Device into Right Femoral Vein, Percutaneous Approach (ICD-10-PCS; 2022-06-13)
PROC: B54BZZA Ultrasonography of Right Lower Extremity Veins, Guidance (ICD-10-PCS; 2022-06-13)
DX: A41.9 Sepsis, unspecified organism (principal); R65.21 Severe sepsis with septic shock; G93.41 Metabolic encephalopathy; E44.0 Moderate protein-calorie malnutrition; A04.72 Enterocolitis due to Clostridium difficile, not specified as recurrent; N17.9 Acute kidney failure, unspecified; L89.154 Pressure ulcer of sacral region, stage 4; F03.90 Unspecified dementia, unspecified severity, without behavioral disturbance, psychotic disturbance, mood disturbance, and anxiety; J96.10 Chronic respiratory failure, unspecified whether with hypoxia or hypercapnia; I11.0 Hypertensive heart disease with heart failure; I50.9 Heart failure, unspecified; E87.1 Hypo-osmolality and hyponatremia; E78.5 Hyperlipidemia, unspecified; Z68.22 Body mass index [BMI] 22.0-22.9, adult; I48.0 Paroxysmal atrial fibrillation; N39.0 Urinary tract infection, site not specified; Z20.822 Contact with and (suspected) exposure to COVID-19; E87.6 Hypokalemia; B96.1 Klebsiella pneumoniae [K. pneumoniae] as the cause of diseases classified elsewhere; Z86.19 Personal history of other infectious and parasitic diseases; Z90.49 Acquired absence of other specified parts of digestive tract; Z88.6 Allergy status to analgesic agent; Z88.1 Allergy status to other antibiotic agents; Z79.899 Other long term (current) drug therapy
CPT/HCPCS: 36415; 36556; 70450; 71045; 80053; 81001; 82550; 82553; 83605; 83735; 83874; 83880; 84100; 84484; 85025; 85610; 85730; 87040; 87081; 87086; 87186; 93005; 96361; 96365; 96368; 97112; 97116; 97530; 99291; J0282; J1644; J1720; J2020; J2370; J2543; J3475; J3480; J3490; J7030; J7060

== ENCOUNTER 2022-07-22 22:07 | Inpatient (IN) | payer OTHER, MEDICARE ==
[~2022-07-22] VITALS: Ht 165.1 cm; Wt 48.1 kg
[~2022-07-22 22:07] MED LIST: AMIO100T3 GT; ASCO-5 GT; ATOR10TA GT; DONE5TAB6 GT; ESCI10TA GT; GABA300C GT; LINE600T4 PO; LOSA100T2 GT; MUPI2CRE22 NS; NUTR30LI2 GT; PIPE1SOL IV; VANC125C10 PO; ZINC220C9 GT
[2022-07-22 22:09] VITALS: BP 111/55
--- NOTE | 2022-07-22 22:09 | NUR ---
Dr. Agudelo examining patient.
--- NOTE | 2022-07-22 22:10 | NUR ---
PT BEVERLY ALS. TAKEN TO BED 6
[2022-07-22] MEDS ORDERED: NACL 0.9% 1,000 ML IV ONE (22:20)
--- NOTE | 2022-07-22 22:24 | NUR ---
PT NICA MAST LEFT CONTACT INFO
--- NOTE | 2022-07-22 22:25 | NUR ---
X-Ray at bedside.
[2022-07-22 22:48] LABS: BASOPHILS % (AUTO) 0.1 % (0.0-2.0); HEMATOCRIT 25.7 % (36-48); LYMPHOCYTES # (AUTO) 0.8 K/uL (2.5-16.5); LYMPHOCYTES % (AUTO) 2.9 % (20.5-51.1); MEAN CORPUSCULAR HEMOGLOBIN 26 pg (27-31); MEAN CORPUSCULAR HGB CONC 31 g/dL (33-37); MONOCYTES # (AUTO) 2.7 K/uL (0.8-1.0); MONOCYTES % (AUTO) 9.3 % (1.7-9.3); NEUTROPHILS # (AUTO) 25.6 K/uL (1.8-7.7); NEUTROPHILS % (AUTO) 87.7 % (42.2-75.2); PLATELET COUNT (AUTO) 552 K/uL (140-450); RED BLOOD CELL COUNT(AUTO) 3.09 MIL/uL (4.20-5.40); RED CELL DISTRIBUTION WIDTH 22.9 % (11.6-13.7)
[2022-07-22] MEDS ORDERED: PIPERACILLIN/TAZOBACTAM 3.375 GM in DEXTROSE 5% 50 ML IV ONE (22:50)
[2022-07-22] MEDS ORDERED: CLINDAMYCIN 900MG/D5W PM 50 ML IV ONE (22:50)
--- NOTE | 2022-07-22 22:56 | NUR ---
PT TAKEN TO RADIOLOGY
[2022-07-22 22:57] LABS: WHITE BLOOD COUNT (AUTO) 29.2 K/uL (4.8-10.8)
[2022-07-22] MEDS ORDERED: ESCI10TA GT (23:00)
[2022-07-22] MEDS ORDERED: DONE5TAB6 GT (23:00)
[2022-07-22] MEDS ORDERED: DOCU-299 GT (23:00)
[2022-07-22] MEDS ORDERED: ATOR10TA GT (23:00)
[2022-07-22] MEDS ORDERED: FIDA200T GT (23:00)
[2022-07-22] MEDS ORDERED: MAGN400S60 GT (23:00)
[2022-07-22] MEDS ORDERED: PRO5 GT (23:00)
[2022-07-22] MEDS ORDERED: BISA-213 RC (23:00)
--- NOTE | 2022-07-22 23:07 | NUR ---
PT RETURN FROM CT
[2022-07-22] MEDS ORDERED: ZINC220C9 GT (23:08)
[2022-07-22] MEDS ORDERED: PIPERACILLIN/TAZOBACTAM 3.375 GM VIAL IV ONE (23:08)
[2022-07-22] MEDS ORDERED: NYST-71 TP (23:08)
[2022-07-22] MEDS ORDERED: NUTR30LI3 GT (23:08)
[2022-07-22 23:12] LABS: APPEARANCE,URINE CLEAR (CLEAR); BILIRUBIN,URINE NEGATIVE (NEGATIVE); BLOOD, URINE 1+ (NEGATIVE); COLOR,URINE YELLOW (YELLOW); LEUKOCYTE ESTERASE ,URINE 2+ (NEGATIVE); NITRITE, URINE NEGATIVE (NEGATIVE); PH,URINE 6.5 (5.0-9.0); UGLUCOSE NEGATIVE (NEGATIVE)
[2022-07-22 23:21] LABS: ALBUMIN 1.7 g/dL (3.4-5.0); ASPARTATE AMINOTRANSFERASE 15 U/L (15-37); CARBON DIOXIDE 33.9 mmol/L (21-32); CHLORIDE 101 mmol/L (98-107); CREATININE 0.6 mg/dL (0.6-1.3); GLUCOSE 156 mg/dL (74-106); SODIUM SERUM 139 mmol/L (136-145); TOTAL BILIRUBIN 0.3 mg/dL (0.0-1.0); UREA NITROGEN, BLOOD 10 mg/dL (7-18)
[2022-07-22 23:29] LABS: POTASSIUM 2.9 mmol/L (3.5-5.1)
--- NOTE | 2022-07-22 23:30 | NUR ---
Patient received on bed lying and asleep. No acute distress. No signs of pain or discomfort. Respirations even, shallow and tachypneic. Patient was placed on BiPAP.
[2022-07-22 23:32] LABS: RBC,URINE 0-5 /HPF (0-5); WBC,URINE TOO MANY TO COUNT /HPF (0-5)
[2022-07-22 23:40] VITALS: BP 90/44
[2022-07-23] VITALS (17 sets, daily range): BP systolic 84–140; BP diastolic 33–81
--- NOTE | 2022-07-23 00:20 | NUR ---
FIO2 TITRATED TO 60% DUE TO DESATURATIONS
--- NOTE | 2022-07-23 00:36 | NUR ---
COVID- 19 swab collected and sent to lab.
[2022-07-23] MEDS ORDERED: HYDROcodone/APAP 5/325 MG 1 TAB TAB PO PRN (00:50)
[2022-07-23] MEDS ORDERED: ONDANSETRON 4 MG/2 ML VIAL IVP PRN (00:50)
[2022-07-23] MEDS ORDERED: MAGNESIUM OXIDE 400 MG TAB PO PRN (00:50)
[2022-07-23] MEDS ORDERED: MORPHINE SULFATE 2 MG/ML SYR IVP PRN (00:50)
[2022-07-23] MEDS ORDERED: POTASSIUM CHLORIDE 10 MEQ TABER PO PRN (00:50)
[2022-07-23] MEDS: ALBUTEROL SULFATE/IPRATROPIU 3 ML SOL IH SCH ×4 (01:03→19:09)
--- NOTE | 2022-07-23 01:26 | NUR ---
Removed old washington cath and placed # 16 FR Washington catheter with 10 ml utilizing sterile technique. Immediate return of 10 ml yellow , cloudy urine noted. Bedside drainage bag placed below level of bladder. Urine sample collected and sent to lab. Pt tolerated procedure .
--- NOTE | 2022-07-23 01:30 | NUR ---
Photo taken as protocol
[2022-07-23] MEDS: NACL 0.9% 1,000 ML IV SCH (01:43)
--- NOTE | 2022-07-23 02:04 | NUR ---
Patient will be admitted to care of Dr. Kurtz. Admited to Telemetry. Will go to room 118. Belongings list completed. Report to LIS Reece.
--- NOTE | 2022-07-23 03:00 | NUR ---
RECEIVED REPORT FROM ER NURSE BLAS FOR CONTINUITY OF CARE. PATIENT IS A&O X0-1. PATIENT IS ON BIPAP; BREATHING IS NORMAL WITH SYMMETRICAL RISE AND FALL OF CHEST. PATIENT'S IV IS A 22G R HAND, RUNNING NS AT 60. PATIENT IS LYING SUPINE, SLEEPING. ATTEMPTED TO ASK PATIENT QUESTIONS, PATIENT WAS UNAROUSABLE. BED IS IN LOWEST POSITION, WHEELS LOCKED, CALL LIGHT IN PLACE. WILL CONTINUE TO OBSERVE PATIENT.
[2022-07-23] MEDS ORDERED: PIPERACILLIN/TAZOBACTAM 2.25 GM in DEXTROSE 5% 50 ML IV SCH (05:00)
[2022-07-23] MEDS ORDERED: PIPERACILLIN/TAZOBACTAM 2.25 GM VIAL IV ONE (05:18)
--- NOTE | 2022-07-23 06:30 | NUR ---
PATIENT'S DAUGHTER (ANTHONY) CALLED FOR AN UPDATE AT 0350. INFORMED HER THAT HER MOTHER WAS CURRENTLY ASLEEP AND WAS ON A BIPAP MACHINE TO HELP WITH HER BREATHING. DAUGHTER ASKED WHAT TIME VISITING HOURS STARTED, TOLD HER 8AM - 8PM. DAUGHTER THANKED ME. PATIENT HAS MOVED HER HANDS UP TO HER HEAD AND TRIED TO TAKE OFF BIPAP. TOLD PATIENT NOT TO DO THAT BECAUSE MACHINE WAS HELPING HER BREATH AND GUIDED PATIENT'S HANDS DOWN. PATIENT WAS COOPERATIVE WITH GUIDANCE, BUT EYES CONTINUED TO REMAIN CLOSED AND DIDN'T ACKNOWLEDGE MY PRESENCE VOCALLY OR BY LOOKING AT ME. WILL ENDORSE CARE TO DAY SHIFT NURSE.
--- NOTE | 2022-07-23 07:45 | NUR ---
ENDORSED TO DAY SHIFT NURSE IRENA FOR CONTINUITY OF CARE. PATIENT IS STABLE.
--- NOTE | 2022-07-23 08:58 | NUR ---
PATIENT HAS BEEN SCREENED AND CATEGORIZED HIGH NUTRITION RISK. PATIENT WILL BE SEEN WITHIN 1-2 DAYS OF ADMISSION. 07/23/22-07/25/22 CONSULT REQUEST RECEIVED 07/23/22 FOR SACRAL WOUND REVIEWED BY CYDNEY FROST RD
[2022-07-23] MEDS ORDERED: LORazepam 2 MG/ML VIAL ONE (11:54)
[2022-07-23] MEDS ORDERED: THERAHONEY GEL 42.5 GM TP PRN (11:55)
[2022-07-23] MEDS ORDERED: ALGINATE DRESSING MC PRN (12:00)
[2022-07-23] MEDS ORDERED: PROPOFOL 1000 MG/100 ML PREMIX 100 ML IV ONE ×2 (12:17→20:32)
--- NOTE | 2022-07-23 12:34 | NUR ---
PT. IS NOT STABLE TO BE ACCESSED. POC DISCUSSED WITH SON AND DAUGHTER WILL SEE PT. WHEN PT TRANSFER TO ICU. AT THIS TIME WILL FOLLOW SKIN CARE PROTOCOL.
--- NOTE | 2022-07-23 12:40 | NUR ---
ROUNDED ON PT. PT STILL ON BIPAP WITH WITH TIDAL VOLUMES OF LESS THAN 200. RN REACHED OUT TO DR WILLIAM IN REGARDS TO OUR CONCERN OF THE PT RECEIVING SUCH SMALL VOLUMES AND BREATHE SOUNDS SOUNDED FLUID OVERLOADED AND COARSE. DR WILLIAM STATED HE WILL BE IN TO SEE PT L[place]ERNE. WILL CONTINUE TO MONITOR PT UNTIL THEN.
[2022-07-23] MEDS: NON ADHERENT DRESSING TP SCH (13:00)
[2022-07-23] MEDS ORDERED: THERAHONEY GEL 42.5 GM TP SCH (13:00)
[2022-07-23] MEDS: PIPERACILLIN/TAZOBACTAM 3.375 GM in DEXTROSE 5% 50 ML IV SCH ×2 (13:00→20:46)
--- NOTE | 2022-07-23 13:00 | NUR ---
PT INTUBATED DUE TO UNSTABLE RESPIRATORY STATUS . TRANSFERRED TO ICU IN STABLE CONDITION. REPORT GIVEN TO DALLIN HAYS.
--- NOTE | 2022-07-23 13:15 | NUR ---
RECEIVED PT, FRON RN 121B S/P INTUBATION, SHE CONNECTED TO VENT. ACPC AT 100%. O2 SAT 88 % IV FLUID HAS TLC ON RT IJ. INFUSING LEVOPHED AT 5MCG/KG/MIN AND PROPOFOL AT 33.33/KG/MIN. SKIN DRY COLOR PALE DIAMOND CATH DRAIN CLEAR YELLOW URINE..
[2022-07-23] MEDS ORDERED: KCL 20 MEQ IN 100 mL PREMIX 200 ML IV SCH ×2 (13:30→18:00)
--- NOTE | 2022-07-23 13:45 | NUR ---
@ 1300 DR WILLIAM AT BEDSIDE TALKING TO FAMILY ABOUT INTUBATION DUE TO PT DECREASING IN TIDAL VOLUMES AND SOON BE UNABLE TO PROTECT HER OWN AIRWAY. FAMILY AGREED DR WILLIAM INTUBATED WITH 7.5 ETT AND SECURED TUBE AT 20 @THE LIP. POSITIVE COLOR CHANGE AND CONDENSATION IN ETT ALONG WITH BILATERAL BREATHE SOUNDS HEARD BY THE DR. XRAY WAS ORDERED AND CONFIRMED PLACEMENT 5CM ABOVE ANA MARIA. DR WILLIAM ORDERED FOR THE ETT BE ADVANCED 1 CM. ETT IS NOT SECURE @ 21 LIP LINE. PT WAS PLACED ON VENT WITH NO COMPLICATIONS. INITIAL VENT SETTINGS FOLLOWED: AC/VC 400 RR18 FIO2 100% +12. PT TOLERATING OK AT THE MOMENT. WILL CONTINUE TO MONITOR. ABG AND SPUTUM WERE ORDERED WELL. @1315 PT WAS TRANSFERRED TO ICU BED 5.
--- NOTE | 2022-07-23 13:51 | NUR ---
ABG RESULTS TEXT TO DR WILLIAM. NEW ORDERS FOR VENT PEEP TO BE TITRATED TO 8 FROM 12. AND TITRATED OXYGEN NECESSARY. DUE TO PT PEAK PRESSURING DR WILLIAM WAS OK WITH RT PLACING PT ON AC/PC INSP 20 RR22 +8 FIO2 100%. PT TOLERATING SETTINGS WELL. WILL CONTINUE TO MONITOR.
[2022-07-23] MEDS: ALGINATE DRESSING MC SCH (14:00)
[2022-07-23] MEDS: HYDRAGUARD CREAM TP SCH (14:00)
--- NOTE | 2022-07-23 14:00 | NUR ---
INCONTINENT SMALL AMOUNT OF SOFT YELLOW BM.SKIN CARE GIVEN ORAL CARE GIVEN.
--- NOTE | 2022-07-23 14:30 | NUR ---
FAMILY AT BED SIDE. DISCUSS ABOUT CODE STATUS, THE PT. FAMILY WANTED HER TO HAVE MODIFIED CODE. NO CPR NO DEFIBRILLATION. CONTINUE WITH ALL TREATMENT, ACLS MED BIPAP INTUBATION CARDIOVERSION.CALL FAMILY FOR ANY CONDITION CHANGED.
[2022-07-23] MEDS: NOREPINEPHRINE 4 MG in DEXTROSE 5% 250 ML IV PRN (14:39)
--- NOTE | 2022-07-23 15:07 | NUR ---
WOUND CARE EVALUATION NOTE: SKIN ASSESSMENT DONE WITH THIS 76 Y/O PT ADMITTED FROM [facility] TO [facility] WITH INITIAL DX HYPOXIA AND ALTERED LEVEL OF CONSCIOUSNESS. PAST MEDICAL HX INCLUDES CHF, A-FIB, HYPERLIPIDEMIA, HYPERTENSION, GERD, DEPRESSION, AND DEMENTIA PRESSURE INJURY WOUNDS AND G-TUBE. ALL ABOVE INFORMATION OBTAINED FROM ADMISSION H&P. PT HAD RAPID RESPOND AND IS INTUBATED, SKIN IS WARM AND DRY, BLE HAIR GROWTH, NO EDEMA. DORSAL PEDAL PULSES PRESENT, WEAK. CAPILLARY REFILLED >3 SEC. PLAN OF CARE DISCUSSED WITH PRIMARY RN COTY GARNICA, SKIN CARE PROTOCOLS AND FLORIN MATTRESS INITIATED. POC DISCUSSED WITH PHARMACY CURRENTLY OUT OF [facility] PRODUCT, AT THIS TIME STARTING ALGINATE DRESSING PER ORDER. INTEGUMENTARY: -ORAL MEMBRANE PINK INTACT, LIPS, CHEEKS SKIN DRY, NO OPEN WOUNDS -TRACH SITE BRODIE STOMA SKIN DRY AND CLEAN. SKIN INTACT. - GT SITE BRODIE STOMA WITH SKIN INTACT. -MOISTURE ASSOCIATED SKIN DAMAGE(MASD) TO: B/L GROINS, MEDIAL THIGHS AND POSTERIOR THIGHS TO SCROTAL, SKIN REDNESS, PEELING -PRESSURE INJURY STAGE 4 TO SACRALCOCCYX [id number] WOUND BED IS RED 90% GRANULATING TISSUE, 10% YELLOW SLOUGH TISSUE, UNDERMINING 0.5CM TO 6O'CLOCK DIRECTION, MOIST NO ODOR, BRODIE WOUND SKIN MOIST, INTACT. -BILATERAL FEET COLD TO TOUCH/HEELS MUSHY SKIN INTACT. RECOMMENDATIONS: -APPLY HYDRAGUARD TO R/L GROINS AND PERINEUM BID AND PRN IF SOILING - CLEANSE SACRALCOCCYX WITH WOUND CLEANSING SOLUTION AND APPLY ALGINATE DRESSING AND COVER WITH COMPOSITE DRESSING QD AND PRN IF SOILING -POSITIONING: TURN AND REPOSITION PATIENT Q 2H OR SOONER USE PILLOWS TO KEEP BONY PROMINENCES FROM DIRECT CONTACT WITH SURFACES USE REPOSITIONING WEDGES TO PROVIDE 30-DEGREE ANGLE FOR SIDE LYING POSITIONS OFFLOADING OR FOAM DRESSING TO ALL TUBING TO PREVENT MEDICAL DEVICES RELATED PRESSURE INJURY -RE-EVALUATING AND MANAGING INCONTINENCE MONITOR SKIN CONDITION DURING POSITION CHANGE DO NOT MASSAGE REDNESS, BONY PROMINENCES FREQUENT BRODIE-CARE AND PROVIDE BARRIER CREAMS PRN IF SOILING MOISTURE CONTROL BY OFFER BED HOWE/URINAL /ABSORBENT PAD TO WICK AND HOLD MOISTURE. MAY OBTAIN ORDER FOR FLEX SEAL, RECTAL BAG OR DIAMOND CATHETER PER PHYSICIAN ORDER UNLESS OTHERWISE CONTRAINDICATED KEEP SKIN DRY AND PROTECT FROM FRICTION -MANAGE FRICTION/SHEAR/MOBILITY KEEP HOB AT THE LOWEST LEVEL OF ELEVATION NO MORE THAN 30 DEGREES UNLESS OTHERWISE CONTRAINDICATED USE LIFT SHEET OR TRANSFER DEVICE TO MOVE PATIENT AND PREVENT LATERAL SHEER. CONSIDER TRAPEZE IF APPROPRIATE PROTECT HEELS, ELBOWS BONY PROMINENCES WITH SKIN BERRIES OR FOAM DRESSING IF EXPOSED TO FRICTION OFFLOAD BILATERAL HEELS BY PLACING PILLOWS UNDER CALVES AT ALL TIMES, UNLESS OTHERWISE CONTRAINDICATED -PRESSURE REDISTRIBUTION SURFACE THERAPY CHANDLER ISOFLEX FLORIN MATTRESS -NUTRITION: PLEASE FOLLOW RD RECOMMENDATIONS AND OFFER NUTRITION SUPPLEMENTS IF ORDERED. PLEASE CONTACT WOUND CARE NURSE FOR ANY QUESTION AND CHANGE OF WOUND CONDITION. Addendum: 07/24/22 at 1319 by Murali Vincent RN (Grace) ALL ABOVE INFORMATION DELETED. WRONG PT.
--- NOTE | 2022-07-23 15:09 | NUR ---
WOUND CARE EVALUATION NOTE: SKIN ASSESSMENT DONE WITH THIS 76 Y/O PT [place] [facility] [place] [facility] WITH INITIAL DX HYPOXIA AND ALTERED LEVEL OF CONSCIOUSNESS. PAST MEDICAL HX INCLUDES CHF, A-FIB, HYPERLIPIDEMIA, HYPERTENSION, GERD, DEPRESSION,DEMENTIA , PRESSURE INJURY WOUNDS AND G-TUBE. ALL ABOVE INFORMATION OBTAINED FROM ADMISSION H&P. PT HAD RAPID RESPOND AND IS INTUBATED, SKIN IS WARM AND MOIST, BLE NO HAIR GROWTH, NO EDEMA. DORSAL PEDAL PULSES PRESENT, WEAK. CAPILLARY REFILLED >3 SEC. PLAN OF CARE DISCUSSED WITH PRIMARY RN COTY GARNICA, SKIN CARE PROTOCOLS AND FLORIN MATTRESS INITIATED. POC DISCUSSED WITH PHARMACY CURRENTLY OUT OF [email or web address] PRODUCT, AT THIS TIME STARTING ALGINATE DRESSING PER ORDER. WBC 29.2 AND ALBUMIN 1.7. CHANGE OF JESÚS SCALE TO AT HIGH RISK COMORBIDITIES RELATED TO DELAY WOUND HEALING, FURTHER SKIN BREAKS: BOWEL AND URINARY INCONTINENCE, INFECTION, CHF, HYPOXEMIC DECREASE TISSUE PERFUSION, DECREASE MOBILITY AND FUNCTIONAL ABILITIES, AND HOB ELEVATED THE MAJORITY OF TIMES DUE TO MEDICAL REASONS. INTEGUMENTARY: -GT BRODIE-STOMA SKIN DRY AND CLEAN -MOISTURE ASSOCIATED SKIN DAMAGE(MASD) TO: B/L GROINS, MEDIAL THIGHS AND POSTERIOR BUTTOCKS, SKIN NON-BLANCHABLE RED MOIST -PRESSURE INJURY STAGE 4 TO SACRALCOCCYX [id number] WOUND BED IS RED 90% GRANULATING TISSUE, 10% YELLOW SLOUGH TISSUE, UNDERMINING 0.5CM TO 6O'CLOCK DIRECTION, MOIST NO ODOR, BRODIE WOUND SKIN MOIST, INTACT. -BILATERAL FEET COLD TO TOUCH/HEELS MUSHY SKIN INTACT. -POSITIONING: TURN AND REPOSITION PATIENT Q 2H OR SOONER USE PILLOWS TO KEEP BONY PROMINENCES FROM DIRECT CONTACT WITH SURFACES USE REPOSITIONING WEDGES TO PROVIDE 30-DEGREE ANGLE FOR SIDE LYING POSITIONS OFFLOADING OR FOAM DRESSING TO ALL TUBING TO PREVENT MEDICAL DEVICES RELATED PRESSURE INJURY -RE-EVALUATING AND MANAGING INCONTINENCE MONITOR SKIN CONDITION DURING POSITION CHANGE DO NOT MASSAGE REDNESS, BONY PROMINENCES FREQUENT BRODIE-CARE AND PROVIDE BARRIER CREAMS PRN IF SOILING MOISTURE CONTROL BY OFFER BED HOWE/URINAL /ABSORBENT PAD TO WICK AND HOLD MOISTURE KEEP SKIN DRY AND PROTECT FROM FRICTION -MANAGE FRICTION/SHEAR/MOBILITY KEEP HOB AT THE LOWEST LEVEL OF ELEVATION NO MORE THAN 30 DEGREE UNLESS OTHERWISE CONTRAINDICATED USE LIFT SHEET OR TRANSFER DEVICE TO MOVE PATIENT AND PREVENT LATERAL SHEER. PROTECT HEELS, ELBOWS BONY PROMINENCES WITH SKIN BERRIES OR FOAM DRESSING IF EXPOSED TO FRICTION OFFLOAD BILATERAL HEELS BY PLACING PILLOWS UNDER CALVES AT ALL TIMES, UNLESS OTHERWISE CONTRAINDICATED -PRESSURE REDISTRIBUTION SURFACE THERAPY CHANDLER ISOFLEX FLORIN MATTRESS -NUTRITION: PLEASE FOLLOW RD RECOMMENDATIONS AND OFFER NUTRITION SUPPLEMENTS IF ORDERED. PLEASE CONTACT WOUND CARE NURSE FOR ANY QUESTION AND CHANGE OF WOUND CONDITION.
--- NOTE | 2022-07-23 17:04 | NUR ---
PT. RESTING IN BED VITAL SIGN WIYH IN NORMAL LIMIT.
--- NOTE | 2022-07-23 19:20 | NUR ---
RECEIVED BEDSIDE REPORT FROM LONNY HAYS. PT SEDATED AND VENTILATED. VENTILATOR AC PC FIO2 100%, RR 22 PEEP 5. VITAL SIGNS: HR 130, RR 22, SPO2 100% BP 95/55. BREATHING UNLABORED. G TUBE IN PLACE. DIAMOND CATHETER PRESENT DRAINING YELLOW URINE. RIGHT IJ INFUSING PROPOFOL 33 MCG/KG/MIN, POTASSIUM CHLORIDE AT 25ML/HR, AND LEVOPHED AT 3 MCG/MIN. RIGHT HAND PIV IN PLACE.
[2022-07-23] MEDS: PROPOFOL 1000 MG/100 ML PREMIX 100 ML IV PRN (20:32)
[2022-07-23] MEDS: LINEZOLID 600MG PREMIX 300 ML IV SCH (21:36)
--- NOTE | 2022-07-23 21:36 | NUR ---
2130 TRANSFERRED PT TO BED 6 ON VENT.
[2022-07-24] VITALS (26 sets, daily range): BP systolic 80–154; BP diastolic 43–96
[2022-07-24] MEDS: ALBUTEROL SULFATE/IPRATROPIU 3 ML SOL IH SCH ×4 (01:11→19:28)
[2022-07-24] MEDS: NOREPINEPHRINE 4 MG in DEXTROSE 5% 250 ML IV PRN (02:17)
[2022-07-24] MEDS: PROPOFOL 1000 MG/100 ML PREMIX 100 ML IV PRN ×5 (02:43→18:23)
--- NOTE | 2022-07-24 03:14 | NUR ---
MESSAGE SENT TO , NOTIFIED OF ELEVATED HR.
--- NOTE | 2022-07-24 04:01 | NUR ---
0330 LOWERED FIO2 TO 40%. SATS 100%. WILL CONTINUE TO TITRATE
[2022-07-24] MEDS: PIPERACILLIN/TAZOBACTAM 3.375 GM in DEXTROSE 5% 50 ML IV SCH ×3 (04:36→20:35)
[2022-07-24 05:43] LABS: BASOPHILS % (AUTO) 0.1 % (0.0-2.0); EOSINOPHILS % (AUTO) 0.2 % (0.0-4.0); HEMATOCRIT 22.8 % (36-48); HEMOGLOBIN 7.2 g/dL (12.0-16.0); LYMPHOCYTES # (AUTO) 0.8 K/uL (2.5-16.5); LYMPHOCYTES % (AUTO) 2.6 % (20.5-51.1); MEAN CORPUSCULAR HEMOGLOBIN 26 pg (27-31); MEAN CORPUSCULAR HGB CONC 31 g/dL (33-37); MONOCYTES # (AUTO) 1.6 K/uL (0.8-1.0); MONOCYTES % (AUTO) 5.3 % (1.7-9.3); NEUTROPHILS # (AUTO) 27.2 K/uL (1.8-7.7); NEUTROPHILS % (AUTO) 91.8 % (42.2-75.2); PLATELET COUNT (AUTO) 452 K/uL (140-450); RED BLOOD CELL COUNT(AUTO) 2.79 MIL/uL (4.20-5.40)
[2022-07-24 05:57] LABS: WHITE BLOOD COUNT (AUTO) 29.6 K/uL (4.8-10.8)
[2022-07-24 05:58] LABS: ALBUMIN 1.2 g/dL (3.4-5.0); ANION GAP 8.8 (8-16); ASPARTATE AMINOTRANSFERASE 16 U/L (15-37); CARBON DIOXIDE 30.7 mmol/L (21-32); CHLORIDE 105 mmol/L (98-107); CREATININE 0.5 mg/dL (0.6-1.3); GLUCOSE 109 mg/dL (74-106); MAGNESIUM 1.5 mg/dL (1.8-2.4); SODIUM SERUM 142 mmol/L (136-145); TOTAL BILIRUBIN 0.4 mg/dL (0.0-1.0); UREA NITROGEN, BLOOD 10 mg/dL (7-18)
[2022-07-24 06:02] LABS: POTASSIUM 2.5 mmol/L (3.5-5.1)
--- NOTE | 2022-07-24 07:15 | NUR ---
RECEIVED BEDSIDE REPORT FROM ROLF RN. PT ALLERGIC TO VANCO/ IBUPROFEN. PT IS SEDATED ETT TO VENT. AC/PC FiO2 40, RATE 22, PEEP 8. PT HAS G-TUBE NO REDNESS AROUND THE SKIN, CURRENTLY NPO. NUTRION CONSULT REQUESTED PT HAS DIAMOND CATHETER WITH YELLOW COLORED URINE. PT OUTPUT WAS 400 ML FROM PREVIOUS SHIFT. PT HAS RA 24G IV WITH NS INFUSING AT 5ML. PT HAS TRIPLE LUMEN R IJ WITH INFUSION OF NOREPINEPHRINE6 MCG/MIN, POTASSIUM CHLORIDE 50 ML/HR, PROPOFOL 80 MCG/KG/MIN. PT HAS DEBICUBITIS ON COCCYX WOUND CONSULT HAS BEEN REQUESTED.
--- NOTE | 2022-07-24 07:20 | NUR ---
BEDSIDE REPORT GIVEN TO PENNY HAYS FOR CONTINUITY OF CARE.
[2022-07-24] MEDS: KCL 20 MEQ IN 100 mL PREMIX 200 ML IV PRN (07:58)
--- NOTE | 2022-07-24 08:36 | NUR ---
PT FAMILY CALLED SPOKE TO DAUGHTER AND INFORMED THAT PT CONDITION HAS CHANGED. Addendum: 07/24/22 at 1009 by YASMANY MILES RN GRANDDAUGHTER / VLAD
[2022-07-24] MEDS ORDERED: METOPROLOL 25 MG TAB ONE (08:37)
[2022-07-24] MEDS ORDERED: METOPROLOL 25 MG TAB PO PRN (09:25)
[2022-07-24] MEDS: LINEZOLID 600MG PREMIX 300 ML IV SCH ×2 (09:28→21:47)
[2022-07-24] MEDS ORDERED: METOPROLOL 25 MG TAB GT PRN (09:40)
[2022-07-24] MEDS ORDERED: NOREPINEPHRINE 8 MG in DEXTROSE 5% 250 ML IV PRN (09:55)
[2022-07-24] MEDS: NACL 0.9% 1,000 ML IV SCH (10:10)
[2022-07-24] MEDS: MAG SULF 2000 MG/WATER PREMIX 50 ML IV PRN (11:34)
[2022-07-24] MEDS ORDERED: METOPROLOL 25 MG TAB GT SCH (12:00)
[2022-07-24] MEDS ORDERED: PHENYLEPHRINE 10 MG in NACL 0.9% 250 ML IV PRN (12:40)
[2022-07-24] MEDS ORDERED: VASOPRESSIN 20 UNITS in NACL 0.9% 250 ML IV PRN (12:40)
--- NOTE | 2022-07-24 12:40 | NUR ---
MD WILLIAM AT BEDSIDE, CHANGES MADE TO VENTILATOR SETTINGS.
--- NOTE | 2022-07-24 12:50 | NUR ---
DR NATLAIIA BELTRAN AT BEDSIDE, SPOKE WITH PT SON PRO ALICEA AND DAUGHTER IAM JOLLEY. DR. DE PAZ UPDATED PT INFORMATION NEW ORDER RECEIVED.
--- NOTE | 2022-07-24 12:58 | NUR ---
DC PLANNING ASSESSMENT COMPLETE PLEASE REFER TO ASSESSMENT FOR ADDITIONAL DETAILS CHIQUI AND PTS SON, PRO , REPORT TENTATIVE DC PLAN IS FOR PT [place] [facility] [place], HOWEVER, PRO REPORTS HE WILL BE IN CONTACT WITH CM IF PLAN CHANGES HE IS UNHAPPY WITH PTS CARE AT CURRENTLY FACILITY. SW ENDORSED TO CM. Addendum: 07/24/22 at 1300 by Alisha DICKERSON Amended: Links added.
[2022-07-24] MEDS: HYDRAGUARD CREAM TP SCH (13:00)
[2022-07-24] MEDS: MIDODRINE 5 MG TAB GT SCH ×2 (14:39→18:25)
[2022-07-24] MEDS: ALGINATE DRESSING MC SCH (14:40)
[2022-07-24] MEDS: NON ADHERENT DRESSING TP SCH (14:40)
--- NOTE | 2022-07-24 15:08 | NUR ---
07/24/22 RD INITIAL ASSESSMENT COMPLETED PLEASE REFER TO NUTRITION ASSESSMENT UNDER CARE ACTIVITY FOR ESTIMATED NUTRITIONAL NEEDS. 1. MONITOR NPO STATUS 2. WHEN/IF MEDICALLY APPROPRIATE TO START TF, RECOMMEND VITAL AF 1.2 AT GOAL RATE 50 ML/HR, FWF 150 ML Q6H TOLERATED, MANUEL BID FOR WOUND SUPPORT - WITH PROPOFOL @ 23.9 ML/HR (PROVIDES 630 KCAL/DAY) AND MANUEL BID (PROVIDES 160 KCAL AND 5 GM PROTEIN DAILY), PROVIDES 1440 ML TOTAL VOLUME, 2230 KCAL, 95 GM PROTEIN AND 1573 ML FREE WATER DAILY MEETING 100% ESTIMATED KCAL AND PROTEIN NEEDS; ADEQUATE - START TF AT 2O ML/HR INCREASE BY 2O ML Q4H UNTIL GOAL IS REACHED TOLERATED 3. MONITOR GI SYMPTOMS, GASTRIC RESIDUALS AND NUTRITION RELATED LAB VALUES 4. CONSULT RD PRN 5. RD TO FOLLOW-UP 2-3 DAYS, HIGH RISK REVIEWED BY CYDNEY FROST RD
[2022-07-24] MEDS ORDERED: POTASSIUM CHLORIDE 20% 40 MEQ/15 ML UDC GT SCH (15:34)
--- NOTE | 2022-07-24 16:15 | NUR ---
DR WELLS ROUNDGABI AT BEDSIDE, SPOKE WITH GRANDDAUGHTER DEANDRE. UPDATED PT INFORMATION NO NEW ORDERS.
--- NOTE | 2022-07-24 18:32 | NUR ---
DR VERA ROUNDING AT BEDSIDE. UPDATED PT INFORMATION. NO NEW ORDER.
--- NOTE | 2022-07-24 19:10 | NUR ---
RECEIVED BEDSIDE REPORT FROM PENNY HAYS. PT SEDATED AND VENTILATED. VENTILATOR AC PRVC FIO2 24%, RR 18 VT 400 PEEP 5. VITAL SIGNS: HR 71, RR 18, SPO2 98% BP 151/65. BREATHING UNLABORED. G TUBE IN PLACE FEEDING VITAL AF 1.2 AR 20ML/HR. DIAMOND CATHETER PRESENT DRAINING YELLOW URINE. RIGHT IJ INFUSING PROPOFOL 60 MCG/KG/MIN, LEVOPHED AT 2 MCG/MIN, NS AT 60ML/HR. RIGHT HAND 24G PIV IN PLACE INFUSING NS 5ML/HR.
--- NOTE | 2022-07-24 19:15 | NUR ---
ENDORSED TO CANNON CREWMEMBER MARIO/PEGGY HAYS FOR CONTINUITY OF CARE. ALL QUESTIONS ANSWERED.
--- NOTE | 2022-07-24 19:40 | NUR ---
HELD G TUBE FEEDING, RESIDUAL ABOVE 200ML
--- NOTE | 2022-07-24 22:24 | NUR ---
GASTRIC RESIDUAL LESS THAN 80ML, G TUBE FEEDING RESUMED AT 20ML/HR.
[2022-07-25] VITALS (26 sets, daily range): BP systolic 107–133; BP diastolic 8–60
[2022-07-25] MEDS: ALBUTEROL SULFATE/IPRATROPIU 3 ML SOL IH SCH ×4 (00:54→19:04)
[2022-07-25] MEDS: HYDRAGUARD CREAM TP SCH ×3 (01:00→13:08)
[2022-07-25] MEDS: PIPERACILLIN/TAZOBACTAM 3.375 GM in DEXTROSE 5% 50 ML IV SCH ×3 (04:13→21:39)
[2022-07-25 05:17] LABS: BASOPHILS % (AUTO) 0.2 % (0.0-2.0); EOSINOPHILS # (AUTO) 0.4 K/uL (0-0.4); EOSINOPHILS % (AUTO) 2.6 % (0.0-4.0); HEMATOCRIT 21.6 % (36-48); LYMPHOCYTES # (AUTO) 0.7 K/uL (2.5-16.5); LYMPHOCYTES % (AUTO) 5.5 % (20.5-51.1); MEAN CORPUSCULAR HEMOGLOBIN 26 pg (27-31); MEAN CORPUSCULAR HGB CONC 31 g/dL (33-37); MEAN CORPUSCULAR VOLUME 81.7 fL (80-94); MONOCYTES # (AUTO) 1.3 K/uL (0.8-1.0); MONOCYTES % (AUTO) 9.5 % (1.7-9.3); NEUTROPHILS # (AUTO) 10.9 K/uL (1.8-7.7); NEUTROPHILS % (AUTO) 82.2 % (42.2-75.2); PLATELET COUNT (AUTO) 343 K/uL (140-450); RED BLOOD CELL COUNT(AUTO) 2.64 MIL/uL (4.20-5.40); RED CELL DISTRIBUTION WIDTH 23.5 % (11.6-13.7); WHITE BLOOD COUNT (AUTO) 13.3 K/uL (4.8-10.8)
[2022-07-25 05:19] LABS: HEMOGLOBIN 6.8 g/dL (12.0-16.0)
--- NOTE | 2022-07-25 06:25 | NUR ---
AM LABS REVIEWED, PATIENT NOTED WITH HGB= 6.8 CALLED EXCHANGE TO LEAVE MESSAGE FOR ON-CALL MD (DR. WILSON) WHO IS COVERING FOR DR. WELLS WILL ENDORSE TO DAY SHIFT TO FOLLOW UP ON ORDERS FOR POSSIBLE BLOOD TRANSFUSION IF NO CALL BACK BEFORE END OF THIS SHIFT
--- NOTE | 2022-07-25 06:36 | NUR ---
RECEIVED CALL BACK FROM DR. WILSON, NEW ORDERS FOR 1 UNITS PRBC WILL ENDORSE TO DAY SHIFT TO CARRY OUT ORDERS LABS DRAWN AT 0407: HGB = 6.8
[2022-07-25 06:45] LABS: ALBUMIN 1.1 g/dL (3.4-5.0); ANION GAP 6.3 (8-16); ASPARTATE AMINOTRANSFERASE 12 U/L (15-37); CARBON DIOXIDE 29.8 mmol/L (21-32); CHLORIDE 106 mmol/L (98-107); CREATININE 0.5 mg/dL (0.6-1.3); GLUCOSE 110 mg/dL (74-106); MAGNESIUM 1.8 mg/dL (1.8-2.4); POTASSIUM 3.1 mmol/L (3.5-5.1); SODIUM SERUM 139 mmol/L (136-145); TOTAL BILIRUBIN 0.3 mg/dL (0.0-1.0); UREA NITROGEN, BLOOD 14 mg/dL (7-18)
[2022-07-25] MEDS: MIDODRINE 5 MG TAB GT SCH ×4 (06:47→19:00)
--- NOTE | 2022-07-25 07:10 | NUR ---
RECEIVED PT ON PRVC 400,F18,+5, 24%. VENT PLUGGED INTO RED OUTLET, WHEELS ARE LOCKED, AMBUBAG AT BEDSIDE, ALARMS ARE SET AND AUDIBLE. BREATH SOUNDS ARE COARSE, SUCTIONED UP SCANT THICK SECRETIONS, SATURATION 93%. WILL CONTINUE TO MONITOR.
--- NOTE | 2022-07-25 07:15 | NUR ---
BESIDE REPORT GIVEN TO MIHIR HAYS.
--- NOTE | 2022-07-25 07:20 | NUR ---
RECEIVED BEDSIDE REPORT FROM CAKE FORMER RN, MARIO, FOR CONTINUITY OF CARE. PERRL, OPENS EYES TO VOICE. ETT TO VENT AC/PRVC FIO2 24%, VT 400, RR 18, PEEP 5. SR ON MONITOR. TLC TO RIJ INFUSING NS AT 60 ML/HR AND NOREPINEPHRINE AT 2 MCG/MIN. 24G IV TO R HAND SALINE LOCK. G TUBE IN PLACE TO TUBE FEEDING VITAL AF AT 40 ML/HR WITH FWF 50 Q4H. F/C TO GRAVITY DRAINING YELLOW URINE. BILATERAL SOFT WRIST RESTRAINTS IN PLACE. NO S/SX OF INJURY. STANDARD PRECAUTION. HOB 30 DEGREES FOR VAP AND ASPIRATION PRECAUTION. BED LOCKED AND IN LOWEST POSITION. HEEL PROTECTOR BOOTS IN PLACE. BED AIR PUMP IN PLACE.
[2022-07-25] MEDS: NACL 0.9% 1,000 ML IV SCH (07:59)
[2022-07-25] MEDS: LINEZOLID 600MG PREMIX 300 ML IV SCH ×2 (08:27→21:49)
[2022-07-25] MEDS: POTASSIUM CHLORIDE 20% 40 MEQ/15 ML UDC GT PRN (08:31)
--- NOTE | 2022-07-25 09:42 | NUR ---
SEEN AND EXAMINED AT BEDSIDE BY DR. WILLIAM. ORDERS TO DC FLUIDS, START CPAP WITH ABG AFTER 1 HR, AND 40 MEQ K+ ELIXIR.
--- NOTE | 2022-07-25 09:46 | NUR ---
DR. JOVANY WILLIAM ROUNDING IN MST; PLACED PATIENT ON CPAP TRIAL; REQUESTING TRIAL X 1 HR THEN OBTAIN ABG; CALL MD WITH RESULTS
--- NOTE | 2022-07-25 10:45 | NUR ---
CPAP 11/10 ENDED. PT TOLERATED FOR AN HOUR. ABG DONE. EXTUBATE AFTER PATIENT HAS RESTED PER DR WILLIAM. WILL CONTINUE TO MONITOR.
[2022-07-25] MEDS ORDERED: POTASSIUM CHLORIDE 20% 40 MEQ/15 ML UDC GT SCH (14:00)
[2022-07-25] MEDS: NON ADHERENT DRESSING TP SCH (14:00)
[2022-07-25] MEDS: ALGINATE DRESSING MC SCH (14:00)
--- NOTE | 2022-07-25 16:11 | NUR ---
CPAP AFTER RESTING WITH FULL VENT SUPPORT OF PRVC 400,F18,+5, 24% FOR A COUPLE HOURS. CPAP 6/5. PT LASTED ABOUT 5 MINUTES BEFORE BECOMING TACHYPNEIC IN THE HIGH 30S AND LOW VOLUMES IN THE 200S. SWITCHED PT BACK TO FULL VENT SUPPORT OF PRVC 400, F18,+5,24%. WILL CONTINUE TO MONITOR.
[2022-07-25] MEDS: ACETAMINOPHEN 325 MG TAB PO PRN (16:21)
[2022-07-25 16:53] LABS: HEMATOCRIT 24.2 % (36-48); HEMOGLOBIN 7.9 g/dL (12.0-16.0)
--- NOTE | 2022-07-25 19:30 | NUR ---
ENDORSED BEDSIDE REPORT TO ANGEL, SURGICAL CONSULTANT RN, FOR CONTINUITY OF CARE.
[2022-07-26] VITALS (25 sets, daily range): BP systolic 105–150; BP diastolic 46–73
[2022-07-26] MEDS: ALBUTEROL SULFATE/IPRATROPIU 3 ML SOL IH SCH ×4 (00:26→19:41)
[2022-07-26] MEDS: HYDRAGUARD CREAM TP SCH ×2 (01:00→12:51)
[2022-07-26] MEDS: PIPERACILLIN/TAZOBACTAM 3.375 GM in DEXTROSE 5% 50 ML IV SCH ×3 (04:39→21:14)
[2022-07-26 05:44] LABS: ALBUMIN 1.1 g/dL (3.4-5.0); ANION GAP 6.9 (8-16); ASPARTATE AMINOTRANSFERASE 14 U/L (15-37); BASOPHILS % (AUTO) 0.2 % (0.0-2.0); CARBON DIOXIDE 29.6 mmol/L (21-32); CHLORIDE 107 mmol/L (98-107); CREATININE 0.4 mg/dL (0.6-1.3); EOSINOPHILS # (AUTO) 0.3 K/uL (0-0.4); EOSINOPHILS % (AUTO) 2.8 % (0.0-4.0); GLUCOSE 96 mg/dL (74-106); HEMATOCRIT 23.1 % (36-48); HEMOGLOBIN 7.5 g/dL (12.0-16.0); LYMPHOCYTES % (AUTO) 8.8 % (20.5-51.1); MAGNESIUM 1.6 mg/dL (1.8-2.4); MEAN CORPUSCULAR HEMOGLOBIN 27 pg (27-31); MEAN CORPUSCULAR HGB CONC 33 g/dL (33-37); MEAN CORPUSCULAR VOLUME 82.8 fL (80-94); MONOCYTES # (AUTO) 1.3 K/uL (0.8-1.0); MONOCYTES % (AUTO) 10.6 % (1.7-9.3); NEUTROPHILS # (AUTO) 9.2 K/uL (1.8-7.7); NEUTROPHILS % (AUTO) 77.6 % (42.2-75.2); PLATELET COUNT (AUTO) 284 K/uL (140-450); POTASSIUM 3.5 mmol/L (3.5-5.1); RED BLOOD CELL COUNT(AUTO) 2.79 MIL/uL (4.20-5.40); RED CELL DISTRIBUTION WIDTH 22.2 % (11.6-13.7); SODIUM SERUM 140 mmol/L (136-145); TOTAL BILIRUBIN 0.2 mg/dL (0.0-1.0); UREA NITROGEN, BLOOD 11 mg/dL (7-18); WHITE BLOOD COUNT (AUTO) 11.8 K/uL (4.8-10.8)
[2022-07-26] MEDS: MIDODRINE 5 MG TAB GT SCH ×3 (06:20→18:54)
--- NOTE | 2022-07-26 07:20 | NUR ---
RECEIVED BEDSIDE REPORT FROM DO ALL OPERATOR RN, ANGEL, FOR CONTINUITY OF CARE. PERRLA, OPENS EYES TO VOICE, ABLE TO RESPOND TO YES OR NO QUESTIONS. ETT TO VENT AC/PRVC FIO2 24%, VT 400, RR 18, PEEP 5. SR ON MONITOR. TLC TO RIJ INFUSING NS TKO AT 5 ML/HR. 24G IV TO R HAND SALINE LOCK. G TUBE IN PLACE TO TUBE FEEDING VITAL AF AT 50 ML/HR. F/C TO GRAVITY DRAINING YELLOW URINE. BILATERAL SOFT WRIST RESTRAINTS IN PLACE. NO S/SX OF INJURY. STANDARD PRECAUTION. HOB 30 DEGREES FOR VAP AND ASPIRATION PRECAUTION. BED LOCKED AND IN LOWEST POSITION. HEEL PROTECTOR BOOTS IN PLACE. BED AIR PUMP IN PLACE.
--- NOTE | 2022-07-26 07:45 | NUR ---
D/C 24G IV TO R HAND DUE TO INFILTRATION.
--- NOTE | 2022-07-26 08:05 | NUR ---
PT PLACED ON CPAP WITH PRESSURE SUPPORT OF 8. RN NOTIFIED. PT AWAKE AND ABLE TO FOLLOW COMMANDS. ALARMS ARE SET AND AUDIBLE TO NURSE STATION. WILL CONTINUE TO MONITOR.
[2022-07-26] MEDS: LINEZOLID 600MG PREMIX 300 ML IV SCH ×2 (08:08→21:10)
--- NOTE | 2022-07-26 10:30 | NUR ---
PT LASTED 2 HOURS ON CPAP.
--- NOTE | 2022-07-26 10:50 | NUR ---
A 76 YEAR OLD FEMALE PATIENT ADMITTED FOR COMPLAINTS OF ALTERED MENTAL STATUS AND HYPOXIA.ADMITTED TO TELEMETRY BUT DESATURATED AND TRANSFERRED TO ICU AFTER INTUBATION.HX OF DEMENTIA,HTN,CHF, A.FIB, DECUB ULCER AND DYSPHAGIA (WITH G.TUBE). WBC 29.UA- MANY WBCS.SPUTUM CULTURE-(+) KLEBSIELLA. CXR-CONSISTENT WITH PULM EDEMA OR PNEUMONIA.ON ZOSYN AND CLINDAMYCIN.)1 UNIT PRBC TRANSFUSED FOR HBG 6.0.LATEST 7.5. VASOPRESSIN,LEVOPHED AND PROPOFOL DRIPS ON GOING.TOLERATING CPAP TRIALS .FOR POSSIBLE EXTUBATION.[place] [facility] [place]ON[place]CM TO FOLLOW - Addendum: 07/27/22 at 1056 by KRIS VILLA CM EXTUBATED 07/26/22 .ON 3L FACE MASK .TRANSFERRED TO TELEMETRY INSTABLE CONDITION.CM TO FOLLOW. Addendum: 07/27/22 at 1623 by KRIS VILLA CM DC PLANNING-ADDENDUM UNABLE TO TRANSFER PATIENT TO TELEMETRY .PATIENT DESATURATED AND WAS PLACED ON HI FLOW O2 40L 60%. FAMILY AT BEDSIDE.CM CONTINUE TO FOLLOW. Addendum: 07/30/22 at 1545 by KRIS VILLA CM DC PLANNING PATIENT IS ON HI FLOW O2 AT 15LITERS.TACHYCARDIC .CARDIZEM IVP 1X GIVEN.SPUTUM GM STAIN (+) FOR KLEBSIELLA.URINE CULTURE (+) FOR CITROBACTER AND PSEUDOMONAS A.ON ZOSYN.SACRAL WOUND FOLLOWED BY WOUND CARE NURSE.ON FULL CODE STATUS NOW.CM TO FOLLOW. Addendum: 08/01/22 at 1358 by KRIS VILLA CM DC PLANNING PATIENT WAS TRANSFERRED BACK TO ICU FOR DESATURATION. PATIENT IS ALSO LETHARGIC.ABG SHOWS RESPIRATORY ACIDOSIS.PLACED ON BIPAP 40%.CT OF THE HEAD WAS CANCELLED BECAUSE IT WAS JUST DONE YESTERDAY WHICH IS NEGATIVE FOR INTRACRANIAL BLEED.B/P STABLE FOR NOW.CM TO FOLLOW. Addendum: 08/03/22 at 1635 by KRIS VILLA CM DC PLANNING REQUEST FOR TRANSFER TO [facility] INITIATED.SPOKE TO JOSE.CLINICALS FAXED TO [facility].CHANDLER AT [facility] INFORMED ABOUT THE REQUEST FOR [facility]AC EVAL.PATIENT IS ON HI FLOW 15L O2 30% NC.PATIENT NOT IN DISTRESS.RESPONSIVE TO VERBAL COMMAND BUT SPEAKS WELSH ONLY.FAMILY AGREED WITH TRANSFER.DON TO FOLLOW. Addendum: 08/06/22 at 1100 by KRIS VILLA CM DC PLANNING PATIENT TO BE PICKED UP AT 11AM TO [facility].PATIENT ON 2LITERS NC.SPOKE WITH JOSE JUARES EARLIER TO CONFIRM PATIENT'S TRANSFER.
--- NOTE | 2022-07-26 12:30 | NUR ---
DOCTOR WILLIAM AT BEDSIDE. PT PLACED ON CPAP, GAVE INSTRUCTION TO COLLECT ABG AFTER 1 HOUR OF CPAP.
[2022-07-26] MEDS: ALGINATE DRESSING MC SCH (12:51)
[2022-07-26] MEDS: NON ADHERENT DRESSING TP SCH (12:52)
--- NOTE | 2022-07-26 13:50 | NUR ---
PT LASTED 1 HOUR OF CPAP, ABG COLLECTED.
--- NOTE | 2022-07-26 16:05 | NUR ---
PT WAS EXTUBATED SUCCESSFULLY. NO DISTRESS NOTED PT IS ON 4L VIA COOL AEROSOL. FAMILY AT BEDSIDE WILL CONTINUE TO MONITOR
--- NOTE | 2022-07-26 16:05 | NUR ---
PT EXTUBATED AT 1605. PT TOLERATED EXTUBATION WITH [id number]%. PT CURRENTLY ON 4L VIA COOL AEROSOL FACE MASK. DR. WELLS ROUNDED PT AT BEDSIDE. NO ORDERS RECEIVED. VS 150/71, 81 BPM, RR 15.
--- NOTE | 2022-07-26 19:00 | NUR ---
ENDORSED BEDSIDE REPORT TO ANGEL, PASTE UP WORKER RN, FOR CONTINUITY OF CARE.
[2022-07-27] VITALS (24 sets, daily range): BP systolic 100–154; BP diastolic 50–98
[2022-07-27] MEDS: ALBUTEROL SULFATE/IPRATROPIU 3 ML SOL IH SCH ×4 (01:17→20:42)
[2022-07-27] MEDS: HYDRAGUARD CREAM TP SCH ×2 (04:45→13:26)
[2022-07-27] MEDS: PIPERACILLIN/TAZOBACTAM 3.375 GM in DEXTROSE 5% 50 ML IV SCH ×3 (04:48→22:56)
[2022-07-27 05:23] LABS: BASOPHILS % (AUTO) 0.4 % (0.0-2.0); EOSINOPHILS # (AUTO) 0.3 K/uL (0-0.4); EOSINOPHILS % (AUTO) 2.5 % (0.0-4.0); HEMATOCRIT 27.4 % (36-48); HEMOGLOBIN 8.8 g/dL (12.0-16.0); MEAN CORPUSCULAR HEMOGLOBIN 27 pg (27-31); MEAN CORPUSCULAR HGB CONC 32 g/dL (33-37); MEAN CORPUSCULAR VOLUME 83.9 fL (80-94); MONOCYTES # (AUTO) 1.2 K/uL (0.8-1.0); MONOCYTES % (AUTO) 11.7 % (1.7-9.3); NEUTROPHILS # (AUTO) 8.1 K/uL (1.8-7.7); NEUTROPHILS % (AUTO) 76.4 % (42.2-75.2); PLATELET COUNT (AUTO) 279 K/uL (140-450); RED BLOOD CELL COUNT(AUTO) 3.26 MIL/uL (4.20-5.40); RED CELL DISTRIBUTION WIDTH 22.2 % (11.6-13.7); WHITE BLOOD COUNT (AUTO) 10.6 K/uL (4.8-10.8)
[2022-07-27 05:31] LABS: ALBUMIN 1.2 g/dL (3.4-5.0); ANION GAP 4.7 (8-16); ASPARTATE AMINOTRANSFERASE 20 U/L (15-37); CARBON DIOXIDE 35.2 mmol/L (21-32); CHLORIDE 107 mmol/L (98-107); CREATININE 0.4 mg/dL (0.6-1.3); GLUCOSE 107 mg/dL (74-106); MAGNESIUM 1.5 mg/dL (1.8-2.4); POTASSIUM 2.9 mmol/L (3.5-5.1); SODIUM SERUM 144 mmol/L (136-145); TOTAL BILIRUBIN 0.2 mg/dL (0.0-1.0); UREA NITROGEN, BLOOD 6 mg/dL (7-18)
--- NOTE | 2022-07-27 07:25 | NUR ---
SBAR REPORT RECEIVED FROM ANGEL RN, ALL CARES ASSUMED. PT RESTING IN BED WITH EYES OPEN, PT TRACKING, NODDING HEAD TO RESPOND. COOL AEROSOL MASK 6L. VITAL AF AT 60ML/HR INFUSING TO G-TUBE. NS AT 5ML/HR INFUSING TO RIGHT IJ CENTRAL LINE. DIAMOND CATHETER DRAINING DARK YELLOW URINE TO GRAVITY. BED IN LOW AND LOCKED POSITION, CALL LIGHT WITHIN REACH.
[2022-07-27] MEDS: LINEZOLID 600MG PREMIX 300 ML IV SCH ×2 (08:56→23:04)
[2022-07-27] MEDS: MIDODRINE 5 MG TAB GT SCH ×3 (08:57→21:00)
[2022-07-27] MEDS: KCL 20 MEQ IN 100 mL PREMIX 200 ML IV PRN (10:30)
--- NOTE | 2022-07-27 10:50 | NUR ---
AT APPROXIMATELY 1015, PT OXYGEN DESATURATED TO 82%. PT HAD COARSE BREATH SOUNDS. ORAL CAIVTY WAS SUCTIONED WITH SCANT SECRETIONS RT WAS CALLED TO ASSESS AND ASSIST WITH PT. [facility] RT PERFORMED NT SUCTION. PT OXYGEN SLOWLY IMPROVED TO 84-85%. PT WAS PUT ON HIGH FLOW NASAL CANNULA 40L 60%. PT OXYGEN RETURNED WNL SATURATION AT 97-98%.
--- NOTE | 2022-07-27 11:16 | NUR ---
AT THE FIRST CHECK THIS MORNING, PT WAS AWAKE AND ALERT. ABLE TO TRACK AND RESPONDED. RECEIVED CALL FROM RN AT 1020 THAT PT SATURATION WAS DOWN TO 72 WITH AN INCREASED WORK OF BREATHING.UPON ARRIVAL, PT RR WAS 40 BPM, O2 SATURATION WAS 68%, WAS PALE, AND LESS RESPONSIVE. PT SOUNDED VERY COARSE AND CONGESTED. SUCTION PT BOTH ORALLY AND WITH NTS. REMOVED MODERATE AMOUNT OF THICK, WHITE SECRETIONS. SATURATION IMPROVED BUT STILL IN THE LOW 80'S. PLACE PT ON HFNC WITH SETTINGS OF 40/60. OBSERVED FOR ABOUT 15 MINUTES. COLORED RETURNED TO HER FACE, WAS MORE ALERT, AND SATURATION NOW 97%, HR 122, RR 22. PT. RESTING COMFORTABLY VISITING WITH SON.
--- NOTE | 2022-07-27 12:30 | NUR ---
DR WELLS ROUNDING AT BEDSIDE. UPDATE GIVEN, PLAN OF CARE DISCUSSED. VERBAL ORDER RECEIVED TO ADMINISTER PRN POTASSIUM 40mEq VIA GTUBE. PRN KRIDER ALREADY ADMINISTERED.
[2022-07-27] MEDS: ALGINATE DRESSING MC SCH (13:26)
[2022-07-27] MEDS: NON ADHERENT DRESSING TP SCH (13:28)
[2022-07-27] MEDS: POTASSIUM CHLORIDE 20% 40 MEQ/15 ML UDC GT PRN (13:29)
[2022-07-27] MEDS ORDERED: FUROSEMIDE 40 MG/4 ML VIAL IVP SCH (14:00)
--- NOTE | 2022-07-27 15:13 | NUR ---
07/27/22 RD FOLLOW UP COMPLETED PLEASE REFER TO NUTRITION ASSESSMENT UNDER CARE ACTIVITY FOR ESTIMATED NUTRITIONAL NEEDS. 1. CONTINUE VITAL AF 1.2 AT GOAL RATE 50 ML/HR, FWF 150 ML Q6H TOLERATED, MANUEL BID FOR WOUND SUPPORT - WITH MANUEL BID (PROVIDES 160 KCAL AND 5 GM PROTEIN DAILY), PROVIDES 1200 ML TOTAL VOLUME, 1600 KCAL, 95 GM PROTEIN AND 1573 ML FREE WATER DAILY MEETING 83% ESTIMATED KCAL NEEDS AND 100% ESTIMATED PROTEIN NEEDS; ADEQUATE 2. IF PT PASSES SWALLOW EVAL, RECOMMEND CARDIAC DIET WITH MANUEL BID FOR WOUND SUPPORT AND TEXTURE MODIFICATION PER ST RECOMMENDATIONS. 3. CONSULT RD PRN 4. RD TO FOLLOW-UP 2-3 DAYS, HIGH RISK REVIEWED BY CYDNEY FROST RD Addendum: 07/27/22 at [address] IF VITAL AF 1.2 UNAVAILABLE, RECOMMEND SWITCHING TO OSMOLITE 1.5 AT GOAL RATE 50 ML/HR - FWF 150 ML Q6H OR PER MD Lowry MANUEL BID FOR WOUND SUPPORT (PROVIDES 160 KCAL AND 5 GM PROTEIN DAILY) - WITH MANUEL BID PROVIDES 1200 ML TOTAL VOLUME, 1960 KCAL, 75 GM PROTEIN AND 1514 ML FREE WATER DAILY MEETING 100% ESTIMATED KCAL AND PROTEIN NEEDS; ADEQUATE
--- NOTE | 2022-07-27 17:32 | NUR ---
PT WAS SEEN FOR DYSPHAGIA. PT WAS POCKETING FOR TRIALS OF APPLE SAUCE AND DIFFICULTY INITIATING SWALLOW. RECOMMENDATION NPO
--- NOTE | 2022-07-27 19:13 | NUR ---
SBAR REPORT GIVEN TO ANGEL RN, ALL CARES ENDORSED.
--- NOTE | 2022-07-27 23:00 | NUR ---
The first vial of Heparin 5000 units fell in the floor and broken down. s0 another vial was dispensed to replaced the broken vial but medication was given only one time
[2022-07-28] VITALS (17 sets, daily range): BP systolic 119–172; BP diastolic 60–111
[2022-07-28] MEDS: ALBUTEROL SULFATE/IPRATROPIU 3 ML SOL IH SCH ×4 (01:00→19:15)
[2022-07-28] MEDS: HYDRAGUARD CREAM TP SCH ×2 (01:00→13:00)
[2022-07-28 04:42] LABS: BASOPHILS # (AUTO) 0.1 K/uL (0.00-0.22); BASOPHILS % (AUTO) 0.6 % (0.0-2.0); EOSINOPHILS # (AUTO) 0.2 K/uL (0-0.4); HEMATOCRIT 25.4 % (36-48); HEMOGLOBIN 8.2 g/dL (12.0-16.0); LYMPHOCYTES # (AUTO) 1.1 K/uL (2.5-16.5); LYMPHOCYTES % (AUTO) 11.4 % (20.5-51.1); MEAN CORPUSCULAR HEMOGLOBIN 27 pg (27-31); MEAN CORPUSCULAR HGB CONC 32 g/dL (33-37); MEAN CORPUSCULAR VOLUME 83.8 fL (80-94); MONOCYTES # (AUTO) 1.2 K/uL (0.8-1.0); MONOCYTES % (AUTO) 12.1 % (1.7-9.3); NEUTROPHILS # (AUTO) 7.3 K/uL (1.8-7.7); NEUTROPHILS % (AUTO) 73.9 % (42.2-75.2); PLATELET COUNT (AUTO) 254 K/uL (140-450); RED BLOOD CELL COUNT(AUTO) 3.03 MIL/uL (4.20-5.40); RED CELL DISTRIBUTION WIDTH 22.2 % (11.6-13.7); WHITE BLOOD COUNT (AUTO) 9.9 K/uL (4.8-10.8)
[2022-07-28 05:45] LABS: ALBUMIN 1.2 g/dL (3.4-5.0); ASPARTATE AMINOTRANSFERASE 15 U/L (15-37); CARBON DIOXIDE 39.5 mmol/L (21-32); CHLORIDE 105 mmol/L (98-107); CREATININE 0.3 mg/dL (0.6-1.3); GLUCOSE 101 mg/dL (74-106); MAGNESIUM 1.7 mg/dL (1.8-2.4); POTASSIUM 3.5 mmol/L (3.5-5.1); SODIUM SERUM 144 mmol/L (136-145); TOTAL BILIRUBIN 0.2 mg/dL (0.0-1.0); UREA NITROGEN, BLOOD 6 mg/dL (7-18)
[2022-07-28] MEDS: MIDODRINE 5 MG TAB GT SCH ×3 (06:35→20:00)
--- NOTE | 2022-07-28 07:30 | NUR ---
RECEIVED ENDOSMENT FROM LONG LANE. PATIENT IS AWAKE AND ALERT RESPONSE TO ALBANIAN SPEAKING QUESTION , SKIN DRY AND WARM, TO TOUCH, G TUBE FEEDING IN PROGRESS AND TOLERATED , IV FLUID HAS TLC ON RT IJ THE SITE IS DRY AND INTACT,. ,
--- NOTE | 2022-07-28 08:38 | NUR ---
BP 136/60 HOLD PROMATINE.AT THIS TIME.
--- NOTE | 2022-07-28 08:40 | NUR ---
HOLD THE HEPARIN 5000 SUBACUTE DUE TO IN CORRECT TIME GIVEN OF THE PREVIOUS DOSE . THE PHAMACY WAS CALL TO CHECK THE DOSE AND TIME.
[2022-07-28] MEDS: LINEZOLID 600MG PREMIX 300 ML IV SCH ×2 (08:42→21:35)
--- NOTE | 2022-07-28 10:15 | NUR ---
INCONTINENT LARGE SOFT YELLOW BM.CLEAN SKIN CARE GIVEN .
[2022-07-28] MEDS: ALGINATE DRESSING MC SCH (13:00)
[2022-07-28] MEDS: NON ADHERENT DRESSING TP SCH (13:00)
[2022-07-28] MEDS: PIPERACILLIN/TAZOBACTAM 3.375 GM in DEXTROSE 5% 50 ML IV SCH ×2 (13:32→20:48)
[2022-07-28] MEDS ORDERED: Z-GUARD PASTE TP SCH (14:58)
--- NOTE | 2022-07-28 15:00 | NUR ---
INCONTINENT MODERATE AMOUNT OF SOFT YELLOW BM .
--- NOTE | 2022-07-28 16:45 | NUR ---
SEEN BY DR. FERMIN. ORDER RECEIVED WILL DOWNGRAD TO TELE FOR CONTINUE TO CARE.
--- NOTE | 2022-07-28 17:25 | NUR ---
SEEN BY , NO ORDER RECEIVED.
--- NOTE | 2022-07-28 19:11 | NUR ---
PT. COMFORTABLE V/S HYPERTENSION HOLD MEDRONE , REPORT GIVE TO LEOBARDO . PT TO BE DOWN GRADE TO TELE RM 107B.
--- NOTE | 2022-07-28 19:12 | NUR ---
BEDSIDE REPORT RECEIVED FROM LONNY HAYS. VITALS: HR 100 BP 149/109 SPO2 94% RR 28. PT AWAKE IN BED. ON NC 25L FIO2 30%. G TUBE IN PLACE WITH FEEDING INFUSING AT 50ML/HR. DIAMOND CATHETER DRAINING YELLOW URINE. RIGHT IJ INFUSING NS AT 5 ML/HR.
--- NOTE | 2022-07-28 19:28 | NUR ---
1914 HHNTX GIVEN. PATIENT HAS A GOOD COUGH. BS ARE CLEAR BILAT. PT REFUSED CPT. DID NOT LIKE IT. KEPT PUTTUNG HER HANDS IN THE WAY
--- NOTE | 2022-07-28 19:50 | NUR ---
REPORT GIVEN TO JOS HAYS FOR TRANSFER OF PT TO MED SURG ROOM 107B.
--- NOTE | 2022-07-28 20:00 | NUR ---
RECEIVED PATIENT FROM ICU, PATIENT IS AWAKE, MUMBLES WHEN ASKED, IN NO ACUTE DISTRESS, PATIENT ON HIGH FLOW O2, 25L, FI02 30%, PATIENT HAS RIGHT IJ, HAS GTUBE ON LUQ, VITAL AF RUNNING AT 40ML/HR, H20 FLUSH @50ML Q4HRS. ALL SAFETY MEASURES IN PLACE.
--- NOTE | 2022-07-28 21:35 | NUR ---
SCHEDULED IV ANTIBIOTIC GIVEN A ORDERED. PATIENT IS ASLEEP, HOB ELEVATED FOR ASPIRATION PRECAUTIONS, NO SIGNS OF DISTRESS NOTED. WILL CONTINUE TO MONITOR THE PATIENT.
[2022-07-29] VITALS: BP 134/69
--- NOTE | 2022-07-29 00:08 | NUR ---
VITALS T 98.9, P 100, BP 134/69, RESP 24, O2 94%, NO SIGNS OF DISTRESS NOTED, HOB ELEVATED FOR ASPIRATION PRECAUTIONS, ALL SAFETY MEASURES IN PLACE.
[2022-07-29] MEDS: ALBUTEROL SULFATE/IPRATROPIU 3 ML SOL IH SCH ×4 (00:59→19:52)
--- NOTE | 2022-07-29 01:30 | NUR ---
WOUND CARE DONE ON WOUND ON SACROCOCCYX AREA. BEDSIDE CARE DONE, PATIENT TOLERATED WELL. LINENS CHANGED. HOB ELEVATED. BED IN LOW AND LOCKED POSITION.
[2022-07-29] MEDS: HYDRAGUARD CREAM TP SCH ×2 (01:55→13:45)
[2022-07-29 04:00] VITALS: BP 130/72
--- NOTE | 2022-07-29 04:10 | NUR ---
BEDSIDE CARE DONE. MOUTH CARE DONE. NO SIGNS OF ACUTE DISTRESS NOTED, PATIENT ON HIGH FLOW O2, 25L, FIO2 30%. HOB ELEVATED.
--- NOTE | 2022-07-29 04:48 | NUR ---
SCHEDULED IV ANTIBIOTIC GIVEN ORDERED.
[2022-07-29] MEDS: PIPERACILLIN/TAZOBACTAM 3.375 GM in DEXTROSE 5% 50 ML IV SCH ×3 (04:49→21:48)
[2022-07-29 06:11] LABS: BASOPHILS % (AUTO) 0.3 % (0.0-2.0); EOSINOPHILS # (AUTO) 0.1 K/uL (0-0.4); EOSINOPHILS % (AUTO) 0.7 % (0.0-4.0); HEMATOCRIT 26.1 % (36-48); HEMOGLOBIN 8.4 g/dL (12.0-16.0); LYMPHOCYTES # (AUTO) 1.2 K/uL (2.5-16.5); MEAN CORPUSCULAR HEMOGLOBIN 27 pg (27-31); MEAN CORPUSCULAR HGB CONC 32 g/dL (33-37); MEAN CORPUSCULAR VOLUME 84.1 fL (80-94); MONOCYTES # (AUTO) 1.3 K/uL (0.8-1.0); NEUTROPHILS # (AUTO) 9.6 K/uL (1.8-7.7); PLATELET COUNT (AUTO) 240 K/uL (140-450); RED CELL DISTRIBUTION WIDTH 21.4 % (11.6-13.7); WHITE BLOOD COUNT (AUTO) 12.2 K/uL (4.8-10.8)
[2022-07-29] MEDS: MIDODRINE 5 MG TAB GT SCH ×2 (06:25→13:00)
--- NOTE | 2022-07-29 06:25 | NUR ---
MIDODRINE NOT GIVEN, BP IS 131/72 MG/DL.
[2022-07-29 06:49] LABS: LYMPHOCYTES % (AUTO) 9.6 % (20.5-51.1); MONOCYTES % (AUTO) 11.1 % (1.7-9.3); NEUTROPHILS % (AUTO) 78.3 % (42.2-75.2)
[2022-07-29 07:09] LABS: ALBUMIN 1.4 g/dL (3.4-5.0); ANION GAP 3.2 (8-16); ASPARTATE AMINOTRANSFERASE 16 U/L (15-37); CARBON DIOXIDE 39.1 mmol/L (21-32); CHLORIDE 102 mmol/L (98-107); GLUCOSE 128 mg/dL (74-106); POTASSIUM 3.3 mmol/L (3.5-5.1); SODIUM SERUM 141 mmol/L (136-145); TOTAL BILIRUBIN 0.3 mg/dL (0.0-1.0)
--- NOTE | 2022-07-29 07:21 | NUR ---
ENDORSED PATIENT TO DAY NURSE FOR CONTINUITY OF CARE. PATIENT IN STABLE CONDITION.
[2022-07-29 07:22] LABS: CREATININE 0.1 mg/dL (0.6-1.3); UREA NITROGEN, BLOOD 9 mg/dL (7-18)
--- NOTE | 2022-07-29 07:34 | NUR ---
GOT REPORT FROM THE NIGHT NURSE, PT IS SLEEPING, NO SOB [id number]
--- NOTE | 2022-07-29 07:45 | NUR ---
CPT not done d/t no compressed air available in room. RN notified. Requested to move room with compressed air.
[2022-07-29 08:00] VITALS: BP 151/76
[2022-07-29] MEDS: POTASSIUM CHLORIDE 20% 40 MEQ/15 ML UDC GT PRN (08:09)
[2022-07-29] MEDS: LINEZOLID 600MG PREMIX 300 ML IV SCH ×2 (08:09→21:49)
[2022-07-29] MEDS: MAG SULF 2000 MG/WATER PREMIX 50 ML IV PRN (09:59)
[2022-07-29] MEDS: ACETAMINOPHEN 325 MG TAB PO PRN (11:24)
[2022-07-29 12:00] VITALS: BP 145/69
--- NOTE | 2022-07-29 12:34 | NUR ---
07/29/22 RD FOLLOW UP COMPLETED.PLEASE REFER TO NUTRITION ASSESSMENT UNDER CARE ACTIVITY FOR ESTIMATED NUTRITIONAL NEEDS. 1. RECOMMEND INCREASING VITAL AF 1.2 EBER TO 50 ML/HR, FWF 150 ML Q6H PT TOLERATES WITH MANUEL BID FOR WOUND SUPPORT - WITH MANUEL BID (PROVIDES 160 KCAL AND 5 GM PROTEIN DAILY), PROVIDES 1200 ML TOTAL VOLUME, 1600 KCAL, 95 GM PROTEIN AND 1573 ML FREE WATER DAILY MEETING 83% ESTIMATED KCAL NEEDS AND 100% ESTIMATED PROTEIN NEEDS; ADEQUATE 2. CONSULT RD PRN 3. RD TO FOLLOW-UP IN 2-3 DAYS PATIENT IS HIGH RISK. KRYSTAL WAGONER RD
--- NOTE | 2022-07-29 12:49 | NUR ---
NTS sxn done d/t rhonchi breath sounds. Improvement in aeration noted. Manual CPT done, pt gestured/ raised hands mid treatment, CPT stopped at that time.
[2022-07-29] MEDS: NON ADHERENT DRESSING TP SCH (13:45)
[2022-07-29] MEDS: ALGINATE DRESSING MC SCH (13:48)
--- NOTE | 2022-07-29 15:06 | NUR ---
RECOMMEND TF VITAL HP @ 60 ML/HR, FWF 150 ML Q6H WITH MANUEL BID DUE TO SHORTAGE OF VITAL AF 1.2 EBER. RN MADE AWARE OF RECOMMENDATION
[2022-07-29 16:00] VITALS: BP 158/73
[2022-07-29] MEDS: FUROSEMIDE 40 MG/4 ML VIAL IVP SCH (17:45)
--- NOTE | 2022-07-29 19:26 | NUR ---
gave report for night nurse, pt is stable.[email or web address]
--- NOTE | 2022-07-29 19:30 | NUR ---
RECEIVED PATIENT FROM AM NURSE FOR CONTINUITY OF CARE. PT IS STABLE
[2022-07-29 20:00] VITALS: BP 138/69
[2022-07-30] VITALS: BP 156/71
[2022-07-30] MEDS: HYDRAGUARD CREAM TP SCH ×2 (01:46→12:33)
[2022-07-30] MEDS: ALBUTEROL SULFATE/IPRATROPIU 3 ML SOL IH SCH ×4 (01:48→18:40)
--- NOTE | 2022-07-30 02:20 | NUR ---
CALLED MD TO INFORM PATIENT'S HEART RATE OF 150 TO 160.MD ORDERED CARDIZEM 10 MG IVP. NOTED AND CARRIED OUT
[2022-07-30] MEDS ORDERED: DILTIAZEM 25 MG/5 ML VIAL IVP SCH (02:25)
--- NOTE | 2022-07-30 03:26 | NUR ---
RN CALLED RT TO BEDSIDE DUE TO DESATURATION. PATIENTS PULSE OX WAS READING AT 65%. PUT PATIENTS BED IN UPRIGHT POSITION AND REASSESSED PULSE OX. PATIENT HAD COARSE BREATH SOUNDS AND PERFORMED NASO TRACHEAL SUCTIONING. OBTAINED SMALL AMOUNT OF THICK CREAMY SECRETIONS. INCREASED PATIENTS HFNC TO 20L 35%. PATIENT WAS LEFT SITTING UPRIGHT IN BED AND SATING AT 95%. WILL CONTINUE TO MONITOR.
--- NOTE | 2022-07-30 03:40 | NUR ---
HEART RATE WENT DOWN TO 115
[2022-07-30 04:00] VITALS: BP 160/84
[2022-07-30] MEDS: ACETAMINOPHEN 325 MG TAB PO PRN (04:00)
--- NOTE | 2022-07-30 04:15 | NUR ---
PATIENT FELT WARM; CHECKED PATIENT'S TEMPERATURE. TEMPERATURE WAS 101.6. TOOK BLANKETS OFF OF PATIENT AND APPLIED ICE PACKS UNDER ARMPITS. CHECKED PATIENT'S CHART; SAW THAT TYLENOL WAS APPROPRIATE TO GIVE. ADMINISTERED TYLENOL VIA G-TUBE. INFORMED RN KRYSTAL OF TEMPERATURE AND INTERVENTIONS DONE.
[2022-07-30] MEDS: PIPERACILLIN/TAZOBACTAM 3.375 GM in DEXTROSE 5% 50 ML IV SCH ×3 (05:12→22:10)
[2022-07-30 06:34] LABS: BASOPHILS % (AUTO) 0.3 % (0.0-2.0); EOSINOPHILS % (AUTO) 0.1 % (0.0-4.0); HEMATOCRIT 28.6 % (36-48); LYMPHOCYTES # (AUTO) 0.5 K/uL (2.5-16.5); LYMPHOCYTES % (AUTO) 3.9 % (20.5-51.1); MEAN CORPUSCULAR HEMOGLOBIN 27 pg (27-31); MEAN CORPUSCULAR HGB CONC 32 g/dL (33-37); MEAN CORPUSCULAR VOLUME 84.8 fL (80-94); MONOCYTES # (AUTO) 1.1 K/uL (0.8-1.0); MONOCYTES % (AUTO) 7.9 % (1.7-9.3); NEUTROPHILS # (AUTO) 12.2 K/uL (1.8-7.7); NEUTROPHILS % (AUTO) 87.8 % (42.2-75.2); PLATELET COUNT (AUTO) 250 K/uL (140-450); RED BLOOD CELL COUNT(AUTO) 3.37 MIL/uL (4.20-5.40); RED CELL DISTRIBUTION WIDTH 22.1 % (11.6-13.7); WHITE BLOOD COUNT (AUTO) 13.9 K/uL (4.8-10.8)
--- NOTE | 2022-07-30 07:20 | NUR ---
ENDORSED PT TO AM NURSE FOR CONTINUITY OF CARE. PT IS STABLE
[2022-07-30 08:00] VITALS: BP 124/67
--- NOTE | 2022-07-30 08:10 | NUR ---
PT WAS NOT GIVEN DO TO PT HR BEING ELEVATED. HR WAS 136
--- NOTE | 2022-07-30 08:10 | NUR ---
RECEIVED PT ON 40L 40% DO TO PT DESATING. RT GAVE REPORT SHE NEEDED TO GO UP ON LITER FLOW AND FIO2 TO MEET PT DEMANDS. WILL CONTINUE TO MONITOR. PT IS TOLERATING WELL.
[2022-07-30 08:21] LABS: ANION GAP 7.8 (8-16); CHLORIDE 98 mmol/L (98-107); CREATININE 0.5 mg/dL (0.6-1.3); GLUCOSE 183 mg/dL (74-106); POTASSIUM 3.8 mmol/L (3.5-5.1); SODIUM SERUM 138 mmol/L (136-145); UREA NITROGEN, BLOOD 22 mg/dL (7-18)
[2022-07-30] MEDS: LINEZOLID 600MG PREMIX 300 ML IV SCH ×2 (09:26→20:12)
[2022-07-30] MEDS: FUROSEMIDE 40 MG/4 ML VIAL IVP SCH (09:31)
--- NOTE | 2022-07-30 11:42 | NUR ---
WOUND CARE RE-EVALUATION NOTE: WOUND ASSESSMENT DONE. PT. WITH FEVER, HEART RATE INCREASE FROM 110 TO 134 DURING ASSESSMENT, UNABLE TO OBTAINED WOUND PHOTO. REPOSITION PT. BACK TO SUPINE POSITION RIGHT AWAY. POC DISCUSSED WITH CHARGE NURSE MINI, PT SACRAL WOUND AND MASD NO IMPROVEMENT NOTICE. INCREASING UNDERMINING TO 3 O'CLOCK DIRECTION. 6 O'CLOCK UNDERMINING RESOLVED. THERAHONEY GEL AT BED SIDE, DRESSING CHANGED. -GT BRODIE-STOMA SKIN DRY AND CLEAN -MOISTURE ASSOCIATED SKIN DAMAGE(MASD) TO: B/L GROINS, MEDIAL THIGHS AND POSTERIOR BUTTOCKS, SKIN NON-BLANCHABLE RED MOIST -PRESSURE INJURY STAGE 4 TO SACRALCOCCYX [id number] WOUND BED IS RED 90% GRANULATING TISSUE, 10% YELLOW SLOUGH TISSUE, UNDERMINING 2.5CM TO 3 O'CLOCK DIRECTION, MOIST NO ODOR, BRODIE WOUND SKIN MOIST, INTACT. -BILATERAL FEET COLD TO TOUCH/HEELS MUSHY SKIN INTACT.
[2022-07-30 12:00] VITALS: BP 113/71
[2022-07-30] MEDS: NON ADHERENT DRESSING TP SCH (12:33)
[2022-07-30] MEDS: ALGINATE DRESSING MC SCH (12:33)
[2022-07-30 16:00] VITALS: BP 160/66
--- NOTE | 2022-07-30 19:34 | NUR ---
RECEIVED PT AWAKE , RELATIVES ON BEDSIDE , ON HIGH FLOW AT 30L , , 28 % , ON O2 SAT MONITORING , O2 SAT 96 % TO 97 % HR 100 , OCCASSIONALLY 107 - 108 . ON TELE MONITOR , ON G TUBE FEEDING - TOLERATING BY PT . ON FALL PREVENTION PROTOCOL , CALL LIGHT WITHIN REACH . WILL CONT. TO MONITOR .
--- NOTE | 2022-07-30 19:34 | NUR ---
ENDORSE PATIENT IN STABLE CONDITION TO PM SHIFT NURSE WHILE R. IJ CENTERLINE SALINE LOCK, TUBE FEET, VITAL @60ML/HR WITH WATER FLUSH 150ML Q6HR; FAMILY AT BEDSIDE
[2022-07-30 20:00] VITALS: BP 120/60
--- NOTE | 2022-07-30 22:35 | NUR ---
PER RT HE REVISED THE THE HIGH FLOW SETTING TO 20L , 28 5 - WILL CONT. TO MONITOR , O2 SAT 96 % TO 97 % .
[2022-07-31] VITALS: BP 124/67
--- NOTE | 2022-07-31 | NUR ---
rounds , o2 sat wnl , will cont. to monitor .
[2022-07-31] MEDS: ALBUTEROL SULFATE/IPRATROPIU 3 ML SOL IH SCH ×4 (00:40→18:58)
[2022-07-31] MEDS: HYDRAGUARD CREAM TP SCH ×2 (01:07→13:03)
--- NOTE | 2022-07-31 02:00 | NUR ---
SLEEPING , EASILY AROUSABLE BY SOUNDS O2 SAT 96 %
[2022-07-31 04:00] VITALS: BP 122/60
--- NOTE | 2022-07-31 04:00 | NUR ---
ROUNDS , O2 SAT WNL , ON TELE MONITOR HAS BM SEMI SOFT - WILL CLEAN UP .
--- NOTE | 2022-07-31 06:00 | NUR ---
ROUNDS , AWAKE , O2 SAT 97 % , NO S/SX OF ACUTE DISTRESS NOTED .
[2022-07-31] MEDS: PIPERACILLIN/TAZOBACTAM 3.375 GM in DEXTROSE 5% 50 ML IV SCH ×3 (06:10→22:20)
--- NOTE | 2022-07-31 06:30 | NUR ---
RT ROUNDS SUGGESTING LASIX FOR THE PT - WILL ENDORSE .
--- NOTE | 2022-07-31 07:15 | NUR ---
ENDORSED TO TROLLEY CAR OVERHAULER NURSE FOR CONTINUITY OF CARE. PT STABLE AT THIS TIME. Addendum: 07/31/22 at 2008 by Ninoska Gallagher RN ENDORSED AT 1909
--- NOTE | 2022-07-31 07:15 | NUR ---
RECEIVED REPORT FROM MOLD INSERT CHANGER NURSE FOR CONTINUITY OF CARE. PT STABLE AT THIS TIME RESTING IN THE BED.
[2022-07-31 07:25] LABS: BASOPHILS # (AUTO) 0.1 K/uL (0.00-0.22); BASOPHILS % (AUTO) 0.6 % (0.0-2.0); EOSINOPHILS # (AUTO) 0.2 K/uL (0-0.4); EOSINOPHILS % (AUTO) 2.1 % (0.0-4.0); HEMATOCRIT 25.9 % (36-48); HEMOGLOBIN 8.3 g/dL (12.0-16.0); LYMPHOCYTES # (AUTO) 1.1 K/uL (2.5-16.5); LYMPHOCYTES % (AUTO) 9.4 % (20.5-51.1); MEAN CORPUSCULAR HEMOGLOBIN 27 pg (27-31); MEAN CORPUSCULAR HGB CONC 32 g/dL (33-37); MEAN CORPUSCULAR VOLUME 84.8 fL (80-94); MONOCYTES # (AUTO) 1.5 K/uL (0.8-1.0); NEUTROPHILS # (AUTO) 8.5 K/uL (1.8-7.7); NEUTROPHILS % (AUTO) 74.9 % (42.2-75.2); PLATELET COUNT (AUTO) 170 K/uL (140-450); RED BLOOD CELL COUNT(AUTO) 3.05 MIL/uL (4.20-5.40); RED CELL DISTRIBUTION WIDTH 21.6 % (11.6-13.7); WHITE BLOOD COUNT (AUTO) 11.3 K/uL (4.8-10.8)
--- NOTE | 2022-07-31 07:33 | NUR ---
ENDORSED PT FOR CONT. OF CARE . O2 SAT 96 % , AWAKE , I ENDORSED TO MARKIE INFORM MD ABOUT THE RT'S SUGGESTION . LIS ADEN VERBALIZED UNDERSTANDING . PT'S RELATIVE NAME DEANDRE SHE LEFT CONTACT NUMBERS AND I GAVE IT TO MARKIE .
[2022-07-31 07:35] LABS: ANION GAP 1.8 (8-16); CHLORIDE 99 mmol/L (98-107); CREATININE 0.3 mg/dL (0.6-1.3); GLUCOSE 120 mg/dL (74-106); POTASSIUM 3.3 mmol/L (3.5-5.1); SODIUM SERUM 139 mmol/L (136-145); UREA NITROGEN, BLOOD 20 mg/dL (7-18)
[2022-07-31 07:55] LABS: CARBON DIOXIDE 41.5 mmol/L (21-32)
[2022-07-31 08:00] VITALS: BP 142/63
[2022-07-31] MEDS: POTASSIUM CHLORIDE 20% 40 MEQ/15 ML UDC GT PRN (09:21)
--- NOTE | 2022-07-31 10:30 | NUR ---
RN CALLED STATED PT WAS DESATING IN THE 80S PT WAS INCREASED HFNC TO 20L 40% PT O2 SATURATION TO 95% PT IS TOLERATING CHANGES WELL. WILL CONTINUE TO MONITOR.
[2022-07-31 12:00] VITALS: BP 135/60
[2022-07-31] MEDS: ALGINATE DRESSING MC SCH (13:03)
[2022-07-31] MEDS: NON ADHERENT DRESSING TP SCH (13:03)
--- NOTE | 2022-07-31 14:08 | NUR ---
RN CALLED SAID PT WAS DESATING AGAIN ON HFNC 15L 28% SATING 86%. RN INCREASED FIO2 TO 50% AND PT IS NOW SATING 96% . NO RESP DISTRESS NOTED. WILL CONTINUE TO MONITOR. PT IS NOW ON HFNC 15L 50% FIO2. WILL CONTINUE TO MONITOR
[2022-07-31 16:00] VITALS: BP 136/65
[2022-07-31 17:03] LABS: BILIRUBIN,URINE NEGATIVE (NEGATIVE); BLOOD, URINE 1+ (NEGATIVE); COLOR,URINE YELLOW (YELLOW); LEUKOCYTE ESTERASE ,URINE 2+ (NEGATIVE); NITRITE, URINE NEGATIVE (NEGATIVE); PH,URINE 7.5 (5.0-9.0); UGLUCOSE NEGATIVE (NEGATIVE)
[2022-07-31 17:05] LABS: APPEARANCE,URINE CLOUDY (CLEAR)
[2022-07-31 17:18] LABS: YEAST,URINE Few /HPF (None Seen)
--- NOTE | 2022-07-31 19:16 | NUR ---
PT'S RELATIVE WANTS AN UP DATE ABOUT MEDICATION LASIX , PER HER THE LASIX DISCUSSED IT TO HER THIS AM AND MENTION TO HER HE WILL ORDER THE LASIX TIV AND LET THE PRIMARY DOCTOR KNOW IT IF IT IS OK TI PRIMARY DOCTOR . REVIEWED THE EMAR NO LASIX FOUND , ALSO ON DOCTOR'S ORDER NO LASIX FOUND . WILL CLARIFY IT TO MARKIE . RELATIVE WANTS TO TALK MARKIE .
--- NOTE | 2022-07-31 19:17 | NUR ---
ASK MARKIE TO RE REVIEW AND CLARIFY THE DR. FERMIN'S NOTES - LIS ADEN VERBALIZES UNDERSTANDING . Addendum: 07/31/22 at 2007 by Kirsten Birmingham RN PER MARKIE THE RELATIVE AND THE DOCTOR ALREADY TALK ABOUT THE RESUSCITATION CODE AND THE PT IS REMAINS MODIFIED CODE ORDERED .
--- NOTE | 2022-07-31 19:45 | NUR ---
CALLED INTO PATIENT ROOM BY FOOD CHECKER NURSE BECAUSE PTS FAMILY WAS ASKING QUESTIONS ABOUT PT BEING PLACED ON BIPAP AND IF THE LASIX HAD BEEN STARTED. INFORMED HER THAT THERE WERE NO NEW ORDERS AT THAT TIME BUT I DID MESSAGE THE DR ABOUT THE LASIX ORDER. DR SAID WAS OKAY TO ORDER 40MG OF LASIX TWICE A DAY. INFORMED FAMILY THAT I WOULD PLACE THE ORDER BEFORE I LEFT AND IT WOULD START IN THE AM. ASKED IF SHE HAD ANY OTHER QUESTIONS AND SHE STATED NO. I TOLD HER TO HAVE A GOOD NIGHT AND I MIGHT SEE HER IN THE MORNING.
--- NOTE | 2022-07-31 19:48 | NUR ---
CALLED RT PT. IS DE SAT TO 88 % TO 89 % - RT SEE THE PT . FURTHER SUCTION DONE - O2 SAT IMPROVES TO 90 % TO 93 %.RELETIVE AT BEDSIDE .
[2022-07-31 20:00] VITALS: BP_SYST 140; BP_DIAS 57; BP_DIAS 62
[2022-07-31] MEDS: FUROSEMIDE 40 MG/4 ML VIAL IVP SCH (20:17)
--- NOTE | 2022-07-31 20:18 | NUR ---
BP 132 / 60 BP MEAN 86 - WILL GIVE TINY Ramirez FOR JAMIL CASANOVA . Addendum: 07/31/22 at 2019 by Kirsten Birmingham RN AT 1917 HR 112
--- NOTE | 2022-07-31 20:50 | NUR ---
RE CHECK PT'S BP 140/100 , LASIX TIV JUST GIVEN . WILL CONT. TO MONITOR .
--- NOTE | 2022-07-31 21:07 | NUR ---
RE VISIT THE PT . PT RESTING , SLEEPING , NO S/SX OF ACUTE DISTRESS NOTED AT THIS TIME , O2 SAT 98 % , RR 20 - WILL CONT. TO MONITOR .
--- NOTE | 2022-07-31 21:40 | NUR ---
RE VISIT THE PT . RESTING ON BED , SLEEPING , O2 SAT 97 % TO 98 % , U.O IMPROVE TO 100 CC TO 250 CC AT THIS TIME , WILL CONT. TO MONITOR .
--- NOTE | 2022-07-31 22:50 | NUR ---
GRAND DAUGHTER AND HER DAD TALKING OVER THE PHONE ABOUT RESUSCITATION CODE , PER DAD ( THE ONE DECISION MAKER ) HE DON'T HIS MOM TO PUT ON FULL CODE . THEY WANTS TO REVISE THE CODE NO CHEST COMPRESSION AND THE REST OF RESUSCITATION MEASURES IS YES . LIS HOLDER IS AT BEDSIDE AND SHE IS THE WITNESS OF RELATIVES REQUEST - KAREN WILL ADDRESS IT TO ORACLE PL SQL DEVELOPER ABOUT THE PROPERLY REVISE THE CODE PER POLICY .
--- NOTE | 2022-07-31 23:00 | NUR ---
PT'S GRAND DAUGHTER DEANDRE LEFT HER CONTACT NUMBER : [phone]
[2022-08-01] VITALS (26 sets, daily range): BP systolic 97–147; BP diastolic 38–94
[2022-08-01] MEDS: ALBUTEROL SULFATE/IPRATROPIU 3 ML SOL IH SCH ×5 (00:47→19:13)
--- NOTE | 2022-08-01 03:30 | NUR ---
SWITCHED PT TO CURAPLEX HIGH FLOW BUBBLE CANNULA. VAPOTHERM HFNC ON STANDBY AT BEDSIDE. WILL CONTINUE TO MONITOR
--- NOTE | 2022-08-01 03:30 | NUR ---
ROUNDS , PT SLEEPING , O2 SAT 98 % , RR 20 , MA 89 . BP 107 / 56 - TRIES TO WAKE UP PT . HARD TO WAKE UP . - WILL REFER TO DR. NORWOOD .
--- NOTE | 2022-08-01 04:00 | NUR ---
TEMP RE CHECK 100. 9F - WILL MEDICATE , WILL DO TSB .
--- NOTE | 2022-08-01 04:10 | NUR ---
RECEIVED ABG ORDER TO PT BECOMING LETHARGIC. ABG RESULTS SHOWED PT WAS IN NEED OF INTUBATION OR BI-PAP, RN MADE AWARE, RN ATTEMPT TO CONTACT UNSUCCESSFUL. PT HAD PREVIOUS BI-PAP ORDER, PLACED PT ON BI-PAP. WILL ASK RN TO PLACE REPEAT ABG ORDER TO OBTAIN SUCCESS OF BI-PAP TREATMENT
--- NOTE | 2022-08-01 04:20 | NUR ---
Per Niels RT, ER MD notified regarding ABG result
[2022-08-01] MEDS: ACETAMINOPHEN 325 MG TAB PO PRN (04:25)
--- NOTE | 2022-08-01 04:25 | NUR ---
PER RT THE CT HEAD JUST DONE YESTERDAY , WILL RE REFER TO DR NORWOOD IF HE WANTS TO PROCEED ANOTHER ONE . RECEIVED RESULT OF ABG FROM RT LONNIE PER RT PT NEEDS TO INTUBATE - WILL CALL DIRECTLY TO DR. NORWOOD , WILL INFORM NANDO Ramirez
--- NOTE | 2022-08-01 04:26 | NUR ---
TRIES TO CALL DR. NORWOOD ABOUT RT SUGGESTION - PHONE KEEP ON RINGING BUT DR. NORWOOD DID NOT ANSWER IT . - WILL INFORM NANDO Ramirez
--- NOTE | 2022-08-01 04:29 | NUR ---
TRIED TO CALL DR. NORWOOD SO MAY TIMES BUT NO ANSWER , INFORM DR. COLLIER ABOUT THIS MATTER .
--- NOTE | 2022-08-01 04:31 | NUR ---
NANDO TRIES TO CALL DR. NORWOOD .
--- NOTE | 2022-08-01 04:40 | NUR ---
Placed pt on BIPAP by RT Bowser
--- NOTE | 2022-08-01 04:45 | NUR ---
TRIES TO CALL DR. NORWOOD DIRECTLY BUT STILL NOT ANSWER . NANDO FISHERNET LEAD DEVELOPER AWARE ABOUT IT .
--- NOTE | 2022-08-01 04:47 | NUR ---
STILL DR. NORWOOD NOT ANSWER TO MT CALL - BAND TEACHER AND RT DECIDED TO PUT PT . ON BI PAP , FEEDING TUBE STOPPED BY NANDO BEFORE THE RT PUT PT ON BI PAP BECAUSE PT KEEP THE SALIVA DROOPING SALIVA -
--- NOTE | 2022-08-01 04:52 | NUR ---
PT IS ON BI PAP - WILL CLOSELY MONITOR .
--- NOTE | 2022-08-01 05:29 | NUR ---
STILL NO RESPONSE FROM DR James NORWOOD , WILL CONTACT DR. WILLIAM - SECTION REPAIRER INFORM .
--- NOTE | 2022-08-01 05:30 | NUR ---
CALL DR. WILLIAM - TRANSFER THE PT. IN ICU NOW , AND IF BP BECOMING DOWN - START LEVOPED AT ICU . - NANDO AWARE ABOUT IT .
[2022-08-01] MEDS: PIPERACILLIN/TAZOBACTAM 3.375 GM in DEXTROSE 5% 50 ML IV SCH ×2 (05:43→13:30)
--- NOTE | 2022-08-01 05:56 | NUR ---
PT STILL FEBRILE , CONT. TSB . BP 105 / 40 - WILL TRANSFER THE PT TO ICU .
--- NOTE | 2022-08-01 05:57 | NUR ---
BP RE CHECK . 111/49 , HR 100 , T 100.4 F , RR 20 , ON BI PAP , O2 SAT 95 % - FOR CLOSELY MONITORED ,
--- NOTE | 2022-08-01 05:58 | NUR ---
PER ICU / PER NANDO WAIT FOR AWHILE THE ICU HAS 2 ADMISSION THEY CAN'T ACCOMODATE THE PT AT THIS TIME , JUST MONITOR . THE PT HERE AT [facility] FOR AWHILE .
--- NOTE | 2022-08-01 06:00 | NUR ---
BP RE CHECK 116/ 54 , RR 20 , T 100.0F O2 SAT 95 % HR 99 - WILL CONT MONITOR .
[2022-08-01] MEDS ORDERED: NOREPINEPHRINE 8 MG in DEXTROSE 5% 250 ML IV PRN (06:35)
[2022-08-01 06:56] LABS: BASOPHILS % (AUTO) 0.3 % (0.0-2.0); HEMATOCRIT 28.1 % (36-48); HEMOGLOBIN 8.8 g/dL (12.0-16.0); LYMPHOCYTES # (AUTO) 0.5 K/uL (2.5-16.5); MEAN CORPUSCULAR HEMOGLOBIN 27 pg (27-31); MEAN CORPUSCULAR HGB CONC 31 g/dL (33-37); MEAN CORPUSCULAR VOLUME 86.5 fL (80-94); MONOCYTES # (AUTO) 1.3 K/uL (0.8-1.0); MONOCYTES % (AUTO) 8.8 % (1.7-9.3); NEUTROPHILS # (AUTO) 13.3 K/uL (1.8-7.7); NEUTROPHILS % (AUTO) 87.9 % (42.2-75.2); PLATELET COUNT (AUTO) 204 K/uL (140-450); RED BLOOD CELL COUNT(AUTO) 3.25 MIL/uL (4.20-5.40); RED CELL DISTRIBUTION WIDTH 21.6 % (11.6-13.7); WHITE BLOOD COUNT (AUTO) 15.1 K/uL (4.8-10.8)
--- NOTE | 2022-08-01 07:01 | NUR ---
TRANSFERRED TO ICU , REPORT GIVEN TO ICU NURSE , WILL INFORM THE RELATIVE. Addendum: 08/01/22 at 07 by Kirsten Birmingham RN at 700 report give to icu nurse - emphasize to icu nurse to inform the doctor to revise the code status according to pt's son request , and ff up to md if they still wants to proceed the head ct , icu nurse verbalizes understanding . Addendum: 08/01/22 at 0749 by Kirsten Birmingham RN informed relative , ana maría venegas is now in icu .
[2022-08-01 07:04] LABS: ANION GAP 0.5 (8-16); CHLORIDE 100 mmol/L (98-107); CREATININE 0.5 mg/dL (0.6-1.3); GLUCOSE 152 mg/dL (74-106); POTASSIUM 4.3 mmol/L (3.5-5.1); SODIUM SERUM 140 mmol/L (136-145); UREA NITROGEN, BLOOD 23 mg/dL (7-18)
[2022-08-01 07:23] LABS: CARBON DIOXIDE 43.8 mmol/L (21-32)
--- NOTE | 2022-08-01 07:47 | NUR ---
REPORT RECEIVED FROM DAVID HAYS, ALL CARES ASSUMED. PT HAS EYES CLOSED RESTING IN BED, ONLY RESPONSIVE TO PAINFUL STIMULI. PUPILS 2MM, SLUGGISH. ON BIPAP 20/6, RR24, 40%. VSS. DIAMOND CATHETER DRAINING TO GRAVITY. RIGHT IJ CENTRAL LINE FLUSHED WITH NORMAL SALINE AND CLAMPED. HOB ELEVATED. BED IN LOW AND LOCKED POSITION. DR LINTON PAGED FOR PT CONDITION.
--- NOTE | 2022-08-01 08:22 | NUR ---
DR LINTON UPDATED ON PT CONDITION BEING LETHARGIC AND AROUSABLE TO PAIN ONLY. MADE MD AWARE THAT BP HAS IMPROVED AT THIS TIME, MD SAID TO STILL GIVE SCHEDULED LASIX IVP. TELEPHONE ORDER FOR ABG WELL AND TO CONTACT TAILING HAND TO UPDATE THEM WELL.
[2022-08-01] MEDS: FUROSEMIDE 40 MG/4 ML VIAL IVP SCH ×2 (09:24→17:30)
--- NOTE | 2022-08-01 09:30 | NUR ---
DR FERMIN PAGED FOR UPDATE OF PT CONDITION, AWARE OF PENDING ABG. NO NEW ORDERS AT THIS TIME.
--- NOTE | 2022-08-01 09:39 | NUR ---
PAGED REGARDING ABG RESULTS. WAITING FOR CALL BACK.
--- NOTE | 2022-08-01 10:20 | NUR ---
ABG RESULTS GIVEN TO NO NEW ORDERS AT THIS TIME. PHYSICIAN STATES TO LEAVE PT ON BIPAP.
--- NOTE | 2022-08-01 12:30 | NUR ---
DR FERMIN AT BEDSIDE WITH TWO OF PT SONS AND ONE GRAND DAUGHTER. DR FERMIN GAVE DETAILED UPDATE TO FAMILY EXPLAINING PROGNOSIS OF PT AND SPENT APPROXIMATELY 35 MINUTES DISCUSSING OPTIONS IN PLAN OF CARE. FAMILY HAS REMAINED UNDECIDED IN DECISION TO INTUBATE PT AGAIN. DR FERMIN REQUESTS TO BE NOTIFIED ONCE FAMILY HAS MADE DECISION. ALL QUESTIONS HAVE BEEN ANSWERED AT THIS TIME. NO NEW ORDERS FROM DR FERMIN AT THIS TIME.
--- NOTE | 2022-08-01 12:37 | NUR ---
08/01/22 RD FOLLOW UP COMPLETED PLEASE REFER TO NUTRITION ASSESSMENT UNDER CARE ACTIVITY FOR ESTIMATED NUTRITIONAL NEEDS. 1. CONTINUE VITAL HP @ 60 ML/HR, FWF 150 ML Q6H PT TOLERATES WITH MANUEL BID FOR WOUND SUPPORT - WITH MANUEL BID (PROVIDES 160 KCAL AND 5 GM PROTEIN DAILY), PROVIDES 29710 ML TOTAL VOLUME, 1600 KCAL, 126 GM PROTEIN AND 1803 ML FREE WATER DAILY MEETING 83% ESTIMATED KCAL NEEDS AND 100% ESTIMATED PROTEIN NEEDS; ADEQUATE 2. CONSULT RD PRN 3. RD TO FOLLOW-UP 2-3 DAYS, HIGH RISK REVIEWED BY CYDNEY FROST RD
[2022-08-01] MEDS: ALGINATE DRESSING MC SCH (13:00)
[2022-08-01] MEDS: NON ADHERENT DRESSING TP SCH (13:00)
[2022-08-01] MEDS: HYDRAGUARD CREAM TP SCH ×2 (13:00)
--- NOTE | 2022-08-01 17:45 | NUR ---
DR LINTON AT BEDSIDE WITH SON PRO AND GRAND DAUGHTER DEANDRE. PLAN OF CARE DISCUSSED, ALL QUESTIONS ANSWERED AT THIS TIME. FAMILY IS REQUESTING ANOTHER DISCUSSION WITH DR FERMIN BEFORE MAKING DECISION. FAMILY EXPRESSES THAT THE FAMILY IS NOT AGREEING ON DECISION TO REINTUBATE PT AT THIS TIME.
[2022-08-01] MEDS ORDERED: MEROPENEM 1,000 MG in NACL 0.9% 50 ML IV SCH (21:00)
[2022-08-01] MEDS ORDERED: MEROPENEM 1,000 MG VIAL IV ONE (21:29)
[2022-08-01] MEDS: LINEZOLID 600MG PREMIX 300 ML IV SCH (21:43)
[2022-08-01] MEDS: MEROPENEM 1,000 MG in NACL 0.9% 50 ML IV SCH (21:43)
[2022-08-02] VITALS (22 sets, daily range): BP systolic 113–179; BP diastolic 48–79
[2022-08-02] MEDS: HYDRAGUARD CREAM TP SCH ×2 (01:00→13:00)
[2022-08-02] MEDS: ALBUTEROL SULFATE/IPRATROPIU 3 ML SOL IH SCH ×4 (01:53→20:23)
[2022-08-02 05:07] LABS: BASOPHILS # (AUTO) 0.1 K/uL (0.00-0.22); BASOPHILS % (AUTO) 0.5 % (0.0-2.0); EOSINOPHILS # (AUTO) 0.1 K/uL (0-0.4); EOSINOPHILS % (AUTO) 0.5 % (0.0-4.0); HEMATOCRIT 23.6 % (36-48); HEMOGLOBIN 7.4 g/dL (12.0-16.0); LYMPHOCYTES # (AUTO) 0.8 K/uL (2.5-16.5); MEAN CORPUSCULAR HEMOGLOBIN 27 pg (27-31); MEAN CORPUSCULAR HGB CONC 31 g/dL (33-37); MEAN CORPUSCULAR VOLUME 86.5 fL (80-94); MONOCYTES # (AUTO) 1.7 K/uL (0.8-1.0); MONOCYTES % (AUTO) 14.4 % (1.7-9.3); NEUTROPHILS # (AUTO) 9.2 K/uL (1.8-7.7); NEUTROPHILS % (AUTO) 77.6 % (42.2-75.2); PLATELET COUNT (AUTO) 156 K/uL (140-450); RED BLOOD CELL COUNT(AUTO) 2.73 MIL/uL (4.20-5.40); WHITE BLOOD COUNT (AUTO) 11.9 K/uL (4.8-10.8)
[2022-08-02 05:30] LABS: CHLORIDE 101 mmol/L (98-107); CREATININE 0.5 mg/dL (0.6-1.3); GLUCOSE 111 mg/dL (74-106); POTASSIUM 3.4 mmol/L (3.5-5.1); UREA NITROGEN, BLOOD 21 mg/dL (7-18)
[2022-08-02 05:45] LABS: ANION GAP 1.1 (8-16); CARBON DIOXIDE 46.3 mmol/L (21-32)
[2022-08-02 05:47] LABS: SODIUM SERUM 145 mmol/L (136-145)
--- NOTE | 2022-08-02 07:15 | NUR ---
REPORT RECEIVED FROM RIGO HAYS, ALL CARES ASSUMED. PT HAS EYES OPEN ACCOMPANIED BY DAUGHTER IAM, PT ABLE TO FOLLOW COMMANDS IN [place] AND NODS TO YES AND NO QUESTIONS. BIPAP 20/6, RR24, 40%. DIAMOND CATHETER DRAINING TO GRAVITY. RIGHT IJ CENTRAL LINE FLUSHED WITH NORMAL SALINE AND CLAMPED. HOB ELEVATED. BED IN LOW AND LOCKED POSITION.
--- NOTE | 2022-08-02 07:23 | NUR ---
ABG results given to Dr. Ramirez. Received telephone order to remove BiPAP and keep sats above 88%
--- NOTE | 2022-08-02 07:50 | NUR ---
Received telephone order to place pt on HiFlow, titrate as tolerated.
--- NOTE | 2022-08-02 07:53 | NUR ---
atient stable, Full bedbath given , linens and gown changed ;dressing to unstageable wound to sacrum done as ordered, MD notified of abnomal CO2 levels, RT at bedside . drawing BLOOD FOR ABG Edorsed report. Patient stable.
[2022-08-02] MEDS: MEROPENEM 1,000 MG in NACL 0.9% 50 ML IV SCH ×2 (08:00→21:01)
[2022-08-02] MEDS: POTASSIUM CHLORIDE 20% 40 MEQ/15 ML UDC GT PRN (08:34)
[2022-08-02] MEDS: FUROSEMIDE 40 MG/4 ML VIAL IVP SCH ×2 (08:34→17:11)
--- NOTE | 2022-08-02 09:05 | NUR ---
Pt placed on Hi Flow 25L FiO2 35%. Pt tolerating well. SpO2 96%, HR 111 RR 17
[2022-08-02] MEDS: LINEZOLID 600MG PREMIX 300 ML IV SCH ×2 (09:47→20:19)
[2022-08-02] MEDS: NON ADHERENT DRESSING TP SCH (13:00)
[2022-08-02] MEDS: ALGINATE DRESSING MC SCH (13:00)
--- NOTE | 2022-08-02 13:25 | NUR ---
Rounded with Dr. Ramirez. Verbal order for BiPAP to be PRN. Ok to use previously ordered settings.
--- NOTE | 2022-08-02 15:00 | NUR ---
PT DIAMOND CATHETER REPLACED USING STERILE TECHNIQUE. URINE SAMPLE COLLECTED PER MD ORDERS.
[2022-08-02 19:46] LABS: APPEARANCE,URINE CLEAR (CLEAR); BILIRUBIN,URINE NEGATIVE (NEGATIVE); BLOOD, URINE 1+ (NEGATIVE); LEUKOCYTE ESTERASE ,URINE NEGATIVE (NEGATIVE); NITRITE, URINE NEGATIVE (NEGATIVE); PH,URINE 6.5 (5.0-9.0); UGLUCOSE NEGATIVE (NEGATIVE)
[2022-08-02 19:49] LABS: COLOR,URINE STRAW (YELLOW)
[2022-08-02 20:04] LABS: RBC,URINE 11-20 (MOD) /HPF (0-5); WBC,URINE NONE SEEN /HPF (0-5)
[2022-08-03] VITALS (13 sets, daily range): BP systolic 111–157; BP diastolic 46–87
[2022-08-03] MEDS: HYDRAGUARD CREAM TP SCH ×2 (01:03→13:57)
[2022-08-03] MEDS: ALBUTEROL SULFATE/IPRATROPIU 3 ML SOL IH SCH ×4 (01:43→19:10)
[2022-08-03 05:30] LABS: BASOPHILS # (AUTO) 0.1 K/uL (0.00-0.22); BASOPHILS % (AUTO) 0.5 % (0.0-2.0); EOSINOPHILS # (AUTO) 0.2 K/uL (0-0.4); EOSINOPHILS % (AUTO) 1.2 % (0.0-4.0); HEMATOCRIT 22.7 % (36-48); HEMOGLOBIN 7.2 g/dL (12.0-16.0); LYMPHOCYTES % (AUTO) 8.1 % (20.5-51.1); MEAN CORPUSCULAR HEMOGLOBIN 27 pg (27-31); MEAN CORPUSCULAR HGB CONC 32 g/dL (33-37); MONOCYTES # (AUTO) 1.6 K/uL (0.8-1.0); MONOCYTES % (AUTO) 13.6 % (1.7-9.3); NEUTROPHILS # (AUTO) 9.3 K/uL (1.8-7.7); NEUTROPHILS % (AUTO) 76.6 % (42.2-75.2); PLATELET COUNT (AUTO) 171 K/uL (140-450); RED BLOOD CELL COUNT(AUTO) 2.64 MIL/uL (4.20-5.40); RED CELL DISTRIBUTION WIDTH 21.3 % (11.6-13.7); WHITE BLOOD COUNT (AUTO) 12.1 K/uL (4.8-10.8)
[2022-08-03 05:47] LABS: CHLORIDE 99 mmol/L (98-107); CREATININE 0.4 mg/dL (0.6-1.3); GLUCOSE 94 mg/dL (74-106); POTASSIUM 3.3 mmol/L (3.5-5.1); SODIUM SERUM 144 mmol/L (136-145); UREA NITROGEN, BLOOD 15 mg/dL (7-18)
[2022-08-03 05:58] LABS: ANION GAP 1.6 (8-16); CARBON DIOXIDE 46.7 mmol/L (21-32)
--- NOTE | 2022-08-03 06:32 | NUR ---
PT REMAINED STABLE OVERNIGHT HOWEVER NEEDED TO GO BACK ON BIPAP 35 DUE TO DESATURATION WHEN ON HI FLOW. PT WAS AFEBRILE ALL NIGHT AND PT TOLERATED NIPAP WELL. WOUND CARE WAS DONE AND BOWEL MOVEMENT WAS NOTED AND CLEANED.
--- NOTE | 2022-08-03 07:00 | NUR ---
PT WAS TAKEN OFF BIPAP AND PLACED ON HFNC 25L 30%. PT IS AWAKE AND RESPONSIVE. NO DISTRESS NOTED. WILL CONTINUE TO MONITOR.
--- NOTE | 2022-08-03 07:15 | NUR ---
RECEIVED BEDSIDE REPORT FROM BARK SKINNER PAMELA RN FOR CONTINUITY OF CARE. PT IS ON HIGH FLOW, 20L, FIO2 30%, NO S/S OF ACUTE RESPIRATORY DISTRESS. AWAKE, ABLE TO FOLLOW SIMPLE COMMAND. SR ON MONITOR. RT IJ TRIPLE LUMEN, INFUSING TKO @3 ML/H. G TUNE IN PLACE AND CLAMPED. NPO PER MD ORDER DUE TO RISK OF ASPIRATION. DIAMOND IN PLACE TO GRAVITY, CLEAR AND YELLOW. GENERALIZED WEAKNESS, BEDREST. SEE WOUND ASSESSMENT. SAFTY PRECAUTION IN PLACE, WILL CONTINUE TO MONITOR.
[2022-08-03] MEDS: LINEZOLID 600MG PREMIX 300 ML IV SCH ×2 (09:32→21:19)
[2022-08-03] MEDS: MEROPENEM 1,000 MG in NACL 0.9% 50 ML IV SCH ×2 (09:32→20:51)
[2022-08-03] MEDS: FUROSEMIDE 40 MG/4 ML VIAL IVP SCH ×2 (09:33→16:51)
[2022-08-03] MEDS: POTASSIUM CHLORIDE 20% 40 MEQ/15 ML UDC GT PRN (09:34)
--- NOTE | 2022-08-03 10:20 | NUR ---
PT PLACED BACK ON BIPAP OF SETTINGS 18/6 DUE TO LOW TIDAL VOLUMES WITH PREVIOUS SETTINGS. PT HAD TO BE PLACED BACK ON BIPAP DUE TO INCREASED WOB. PT IS TOLERATING CHANGES WELL. RR DECREASED TO 26. WILL CONTINUE TO MONITOR .
--- NOTE | 2022-08-03 11:57 | NUR ---
WOUND CARE RE-EVALUATION NOTE: WOUND ASSESSMENT DONE. PT SACRAL WOUND AND MASD NO BRITTANY SAME WITH UNDERMINING. 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 -BILATERAL FEET WARM TO TOUCH/HEELS MUSHY SKIN INTACT.
--- NOTE | 2022-08-03 12:37 | NUR ---
DR ZANDER BELTRAN AT BEDSIDE. UPDATED PT INFORMATION. DOWNGRADE PT TO TELE.
[2022-08-03] MEDS: ALGINATE DRESSING MC SCH (13:56)
[2022-08-03] MEDS: NON ADHERENT DRESSING TP SCH (13:57)
--- NOTE | 2022-08-03 14:00 | NUR ---
DR CHUY BELTRAN AT BEDSIDE. UPDATED PT INFORMATION. NO NEW ORDER RECEIVED.
--- NOTE | 2022-08-03 16:12 | NUR ---
08/03/22 RD FOLLOW UP COMPLETED PLEASE REFER TO NUTRITION ASSESSMENT UNDER CARE ACTIVITY FOR ESTIMATED NUTRITIONAL NEEDS. 1. CONTINUE VITAL HP @ 60 ML/HR, FWF 150 ML Q6H PT TOLERATES WITH MANUEL BID FOR WOUND SUPPORT - WITH MANUEL BID (PROVIDES 160 KCAL AND 5 GM PROTEIN DAILY), PROVIDES 71799 ML TOTAL VOLUME, 1600 KCAL, 126 GM PROTEIN AND 1803 ML FREE WATER DAILY MEETING 83% ESTIMATED KCAL NEEDS AND 100% ESTIMATED PROTEIN NEEDS; ADEQUATE 2. CONSULT RD PRN 3. RD TO FOLLOW-UP 2-3 DAYS, HIGH RISK REVIEWED BY CYDNEY FROST RD
--- NOTE | 2022-08-03 17:45 | NUR ---
PT TRANSFERRED VIA BED WITH RT HELP TO RM 122A. SBAR GIVEN TO TRAVON HAYS FOR CONTINUITY OF CARE. ALL QUESTION ANSWERED.
--- NOTE | 2022-08-03 17:59 | NUR ---
[facility] PT WAS TRANSPORTED VIA BED WITH RT, NURSE AND FAMILY AT BEDSIDE. PT ON HIGH FLOW. PT IS RESTING WITH OU CLOSED. NO VISIBLE S/S OF DISTRESS, DISCOMFORT, PAIN OR SOB. PT FAMILY MEMBER ORIENTED TO CALL LIGHT. G-TUBE CLAMPED. ALL NEEDS MET AT THIS TIME. WILL CONTINUE TO MONITOR.
--- NOTE | 2022-08-03 18:02 | NUR ---
PT WAS TRANSFERRED TO ROOM 122A NO COMPLICATIONS PT HAS NO SOB. SHE IS ON HFNC 20L 30% HR 88 SPO2 99%
--- NOTE | 2022-08-03 18:42 | NUR ---
PT IS RESTING WITH OU CLOSED SEMI-FOWLERS. AT BEDSIDE. NO VISIBLE S/S OF DISTRESS, DISCOMFORT, PAIN OR SOB. HIGH FLOW ON. G-TUBE CLAMPED. CALL LIGHT IS WITHIN REACH, ALL NEEDS MET AT THIS TIME. WILL ENDORSE TO NOC SHIFT.
[2022-08-04] VITALS: BP 113/52
[2022-08-04] MEDS: ALBUTEROL SULFATE/IPRATROPIU 3 ML SOL IH SCH ×4 (01:02→19:14)
[2022-08-04] MEDS: HYDRAGUARD CREAM TP SCH ×2 (01:23→13:21)
[2022-08-04 04:00] VITALS: BP 123/49
[2022-08-04 05:42] LABS: BASOPHILS # (AUTO) 0.1 K/uL (0.00-0.22); BASOPHILS % (AUTO) 0.7 % (0.0-2.0); EOSINOPHILS # (AUTO) 0.3 K/uL (0-0.4); EOSINOPHILS % (AUTO) 2.7 % (0.0-4.0); HEMATOCRIT 24.6 % (36-48); HEMOGLOBIN 7.9 g/dL (12.0-16.0); LYMPHOCYTES # (AUTO) 1.1 K/uL (2.5-16.5); LYMPHOCYTES % (AUTO) 10.7 % (20.5-51.1); MEAN CORPUSCULAR HEMOGLOBIN 28 pg (27-31); MEAN CORPUSCULAR HGB CONC 32 g/dL (33-37); MEAN CORPUSCULAR VOLUME 85.5 fL (80-94); MONOCYTES # (AUTO) 1.4 K/uL (0.8-1.0); MONOCYTES % (AUTO) 13.6 % (1.7-9.3); NEUTROPHILS # (AUTO) 7.3 K/uL (1.8-7.7); NEUTROPHILS % (AUTO) 72.3 % (42.2-75.2); PLATELET COUNT (AUTO) 219 K/uL (140-450); RED BLOOD CELL COUNT(AUTO) 2.88 MIL/uL (4.20-5.40); RED CELL DISTRIBUTION WIDTH 21.5 % (11.6-13.7); WHITE BLOOD COUNT (AUTO) 10.1 K/uL (4.8-10.8)
[2022-08-04 06:21] LABS: CHLORIDE 98 mmol/L (98-107); CREATININE 0.4 mg/dL (0.6-1.3); GLUCOSE 85 mg/dL (74-106); POTASSIUM 3.1 mmol/L (3.5-5.1); SODIUM SERUM 142 mmol/L (136-145); UREA NITROGEN, BLOOD 10 mg/dL (7-18)
[2022-08-04 06:29] LABS: ANION GAP 0.4 (8-16); CARBON DIOXIDE 46.7 mmol/L (21-32)
[2022-08-04 08:00] VITALS: BP 117/42
[2022-08-04] MEDS: MEROPENEM 1,000 MG in NACL 0.9% 50 ML IV SCH ×2 (09:00→20:18)
[2022-08-04] MEDS: FUROSEMIDE 40 MG/4 ML VIAL IVP SCH ×2 (09:38→17:00)
[2022-08-04] MEDS: LINEZOLID 600MG PREMIX 300 ML IV SCH ×2 (09:39→20:18)
[2022-08-04] MEDS: POTASSIUM CHLORIDE 20% 40 MEQ/15 ML UDC GT PRN (09:46)
[2022-08-04 12:00] VITALS: BP 151/91
[2022-08-04] MEDS: ALGINATE DRESSING MC SCH (13:21)
[2022-08-04] MEDS: NON ADHERENT DRESSING TP SCH (13:21)
[2022-08-04 16:00] VITALS: BP 128/53
[2022-08-04 20:00] VITALS: BP 107/56
--- NOTE | 2022-08-04 22:15 | NUR ---
Patient in bed. Turned repositioned q2. No acute distress noted. Will continue to monitor.
[2022-08-05] VITALS (8 sets, daily range): BP systolic 90–138; BP diastolic 38–96
[2022-08-05] MEDS: ALBUTEROL SULFATE/IPRATROPIU 3 ML SOL IH SCH ×4 (00:50→19:34)
[2022-08-05] MEDS: HYDRAGUARD CREAM TP SCH ×2 (01:00→13:06)
--- NOTE | 2022-08-05 01:57 | NUR ---
PT TOLERATED BOTH RESPIRATORY TREATMENT WELL. PER DOCTOR ORDERS, PT PLACED ON BiPAP FOR THE NIGHT. SETTINGS ARE IPAP 14, EPAP 5, RATE 20, AND 40% FiO2. PT RESTING AND SATURATION IS 98%. NO RESPIRATORY DISTRESS NOTED AT THIS TIME. WILL CONTINUE TO MONITOR PATIENT.
--- NOTE | 2022-08-05 03:15 | NUR ---
CHANGED BiPAP SETTINGS TO IPAP 16 BECAUSE PT VOLUMES WERE TOO LOW - 200'S. VOLUMES ARE NOW BETWEEN 400 AND 500.
[2022-08-05 06:57] LABS: BASOPHILS # (AUTO) 0.1 K/uL (0.00-0.22); BASOPHILS % (AUTO) 0.7 % (0.0-2.0); EOSINOPHILS # (AUTO) 0.2 K/uL (0-0.4); EOSINOPHILS % (AUTO) 1.9 % (0.0-4.0); HEMATOCRIT 26.2 % (36-48); HEMOGLOBIN 8.4 g/dL (12.0-16.0); LYMPHOCYTES # (AUTO) 1.3 K/uL (2.5-16.5); LYMPHOCYTES % (AUTO) 9.8 % (20.5-51.1); MEAN CORPUSCULAR HEMOGLOBIN 27 pg (27-31); MEAN CORPUSCULAR HGB CONC 32 g/dL (33-37); MEAN CORPUSCULAR VOLUME 85.3 fL (80-94); MONOCYTES # (AUTO) 1.5 K/uL (0.8-1.0); MONOCYTES % (AUTO) 12.1 % (1.7-9.3); NEUTROPHILS # (AUTO) 9.6 K/uL (1.8-7.7); NEUTROPHILS % (AUTO) 75.5 % (42.2-75.2); PLATELET COUNT (AUTO) 253 K/uL (140-450); RED BLOOD CELL COUNT(AUTO) 3.07 MIL/uL (4.20-5.40); RED CELL DISTRIBUTION WIDTH 21.3 % (11.6-13.7); WHITE BLOOD COUNT (AUTO) 12.8 K/uL (4.8-10.8)
[2022-08-05 07:01] LABS: CHLORIDE 96 mmol/L (98-107); CREATININE 0.4 mg/dL (0.6-1.3); GLUCOSE 81 mg/dL (74-106); POTASSIUM 3.3 mmol/L (3.5-5.1); UREA NITROGEN, BLOOD 8 mg/dL (7-18)
[2022-08-05 07:07] LABS: MAGNESIUM 1.5 mg/dL (1.8-2.4)
[2022-08-05 07:26] LABS: ANION GAP -16.2 (8-16); CARBON DIOXIDE 64.5 mmol/L (21-32)
[2022-08-05 07:27] LABS: SODIUM SERUM 141 mmol/L (136-145)
--- NOTE | 2022-08-05 07:37 | NUR ---
GOT REPORT FROM THE NIGHT NURSE, PT AWAKE THE BI POP ON AND PT TRYING TO REMOVE IT [id number]
--- NOTE | 2022-08-05 07:52 | NUR ---
RECEIVED ON A My[employer]App V60 BIPAP PLUGGED INTO RED OUTLET TOLERATING WELL WITHOUT COMPLICATIONS NOTED TO A MEDIUM FACIAL MASK SECURED WITH HEAD GEAR; POST [facility] THERAPY REMOVE FROM BIPAP TO MASK PLACE ON A HIGH FLOW NASAL CANNULA IF TOLERATED
--- NOTE | 2022-08-05 08:08 | NUR ---
REMOVED FROM BIPAP TO MASK; PLACE ON A VAPOTHERM HIGH FLOW NASAL CANNULA PLUGGED INTO RED OUTLET TOLERATING WELL WITHOUT ADVERSE REACTIONS NOTED; BOOT TRIMMER TO MONITOR TITRATE FIO2 TOLERATED
[2022-08-05] MEDS: LINEZOLID 600MG PREMIX 300 ML IV SCH ×2 (08:46→21:09)
[2022-08-05] MEDS: FUROSEMIDE 40 MG/4 ML VIAL IVP SCH ×2 (09:03→09:58)
[2022-08-05] MEDS: FAMOTIDINE 20 MG/2 ML VIAL IV SCH (09:03)
[2022-08-05] MEDS: MAG SULF 2000 MG/WATER PREMIX 50 ML IV PRN (09:04)
[2022-08-05] MEDS: MEROPENEM 1,000 MG in NACL 0.9% 50 ML IV SCH ×2 (09:10→21:09)
--- NOTE | 2022-08-05 10:57 | NUR ---
TOLERATING VAPOTHERM HIGH FLOW NASAL CANNULA WITHOUT ADVERSE REACTIONS NOTED; SATURATION 98% ON FIO2 OF 30%; TITRATED FIO2 TO 28%; RAMSES/RN NOTIFIED
[2022-08-05] MEDS: POTASSIUM CHLORIDE 20% 40 MEQ/15 ML UDC GT PRN (11:16)
--- NOTE | 2022-08-05 11:16 | NUR ---
given potassium 20meq via g tube for the 3.3 k level and magnesium, iv as ordered for mag level 1.5 oral care done danny care done pt awake. [email or web address]
[2022-08-05] MEDS: ALGINATE DRESSING MC SCH (13:05)
[2022-08-05] MEDS: NON ADHERENT DRESSING TP SCH (13:06)
--- NOTE | 2022-08-05 18:23 | NUR ---
Left few messages for the behavioral health case manager Miles to arrange for transportation at [phone], I also faxed the [facility] transport form. I also left a message to manager corporate responsibility Phoebe and to Janusz for [facility] behavioral health case manager coverage. No answer. and no return calls. Will endorse
--- NOTE | 2022-08-05 18:53 | NUR ---
Called [facility] call a la cart [phone] and arranged transportation to [place] room 217 at first available. Endorsed to RN.
--- NOTE | 2022-08-05 18:56 | NUR ---
conformation number for transport [phone], patient is on high flow oxygen. to go to [facility]
--- NOTE | 2022-08-05 19:47 | NUR ---
GAVE REPORT TO THE NIGHT NURSE.[id number]
--- NOTE | 2022-08-05 22:03 | NUR ---
CALLED [facility] #[phone] TO FOLLOW UP ETA FOR TRANSPORT, GAVE TRANSPORT #[id number] TO SHARIF AND STATED THEY ARE STILL LOOKING FOR TRANSPORT AT THIS TIME, STATED SHE WILL GIVE ME A CALL BACK IF THEY HAVE ETA FOR THE TRANSPORT, LIS SIERRA MADE AWARE.
--- NOTE | 2022-08-05 22:31 | NUR ---
GOT A CALL BACK FROM SHARIF OF [facility] AND STATED SHE COULDN'T FIND ANY TRANSPORT SINCE ALL THE TRANSPORT VENDORS ARE ALREADY CLOSED, SHE PROVIDED ME WITH ANOTHER TRANSPORT NUMBER FOR TOMORROW 08/06/22 #[id number], LIS SIERRA AND NATALIA COLLIER MADE AWARE, RN WILL CONTACT FAMILY MEMBER FOR UPDATE, CALLED [facility] AND SPOKE TO MARKIE TO LET HER KNOW ABOUT THE SITUATION.
--- NOTE | 2022-08-05 22:34 | NUR ---
Family called to notify them that patient could not be transported out of the hospital tania portillo said that patient would be moved in the morning, Patient daughter was spoken to via phone no [phone] and patient grand daughter was notified via phone no [phone]. Both family members expressed gratitude and were very thankful that they were notified
--- NOTE | 2022-08-05 23:43 | NUR ---
PT PLACED ON BiPAP AT 2309. SETTINGS ARE IPAP 15, EPAP 5, RATE 20, AND FiO2 40%. PT SATURATION IS 100% AND EXHALED TIDAL VOLUMES ARE IN THE 400S. WILL CONTINUE TO MONITOR PT.
[2022-08-06] VITALS: BP 107/45
[2022-08-06] MEDS: ALBUTEROL SULFATE/IPRATROPIU 3 ML SOL IH SCH ×2 (01:19→07:42)
--- NOTE | 2022-08-06 03:25 | NUR ---
GOT A CALL FROM DC FROM [facility] TRANSPORT INQUIRING IF PT IS READY FOR TRANSFER TO [facility], MADE AWARE THAT PT IS READY, AL STATED HE WILL CALL BACK FOR ETA OF THE TRANSPORT, CALLED [facility] AND TALKED TO CINDY, STATED THEY ARE NOT READY TO RECEIVE THE PT AT THIS TIME UNTIL 0630 TO 0700 AND PT WILL GO TO ROOM 212B, AWAITING CALL BACK FROM DC.
--- NOTE | 2022-08-06 03:32 | NUR ---
CALL BACK FROM [place] STATED ETA FOR TRANSPORT IS BETWEEN 10 TO 11 AM, RIGO HAYS MADE AWARE.
[2022-08-06 04:05] VITALS: BP 117/48
[2022-08-06 05:42] LABS: PHOSPHORUS 2.2 mg/dL (2.5-4.9)
--- NOTE | 2022-08-06 07:27 | NUR ---
RECEIVED REPORT FROM ASBESTOS BRAKE LINING FINISHER NURSE. PT IS AWAKE, HIGH FLOW 20L FIO 30 VIA NL. [facility]
[2022-08-06 07:43] VITALS: BP 134/46
--- NOTE | 2022-08-06 07:54 | NUR ---
POST [facility]N THERAPY REMOVED FOR VAPOTHERM HIGH FLOW NASAL CANNULA; PLACED ON SUPPLEMENTAL OXYGEN AT 2 LPM VIA NC; ELECTRONIC OPERATOR TO MONITOR
[2022-08-06] MEDS: MEROPENEM 1,000 MG in NACL 0.9% 50 ML IV SCH (08:09)
[2022-08-06] MEDS: FUROSEMIDE 40 MG/4 ML VIAL IVP SCH (08:18)
[2022-08-06] MEDS: FAMOTIDINE 20 MG/2 ML VIAL IV SCH (08:18)
[2022-08-06] MEDS: LINEZOLID 600MG PREMIX 300 ML IV SCH (08:27)
--- NOTE | 2022-08-06 12:26 | NUR ---
PT WAS TRANSFERRED TO [facility] VIA TRANSPORT IN 02 2L NC, NO SOB, NO DISCOMFORT, DRESSING CHANGED BEFORE PT LEFT ON COCCYX ULCER, IV LINE AND DIAMOND CATHETER IN PLACE PER MD. FAMILY ACCOMPANIED THE PT UPON DISCHARGE. DISCHARGE INSTRUCTION GIVEN. PT WAS NOT ABLE TO SIGN. WOUND PICTURE TAKEN. REPORT GIVEN TO AN RN AT [facility]. [id number]
== END 2022-08-06 12:25 | DRG 720 ==
LOC: MED 22:07 → MTU 07-23 00:53 → MED 07-23 01:00 → MTU 07-23 01:37 → MIC 07-23 12:55 → MTU 07-28 20:00 → MIC 08-01 07:56 → MTU 08-03 17:51
PROVIDERS: ADMIT Internal Medicine; ATTEND Internal Medicine
PROC: 02H633Z Insertion of Infusion Device into Right Atrium, Percutaneous Approach (ICD-10-PCS; principal; 2022-07-23)
PROC: 5A1945Z Respiratory Ventilation, 24-96 Consecutive Hours (ICD-10-PCS; 2022-07-23)
PROC: B548ZZA Ultrasonography of Superior Vena Cava, Guidance (ICD-10-PCS; 2022-07-23)
PROC: 0BH17EZ Insertion of Endotracheal Airway into Trachea, Via Natural or Artificial Opening (ICD-10-PCS; 2022-07-23)
PROC: 5A09357 Assistance with Respiratory Ventilation, Less than 24 Consecutive Hours, Continuous Positive Airway Pressure (ICD-10-PCS; 2022-07-23)
PROC: 30233N1 Transfusion of Nonautologous Red Blood Cells into Peripheral Vein, Percutaneous Approach (ICD-10-PCS; 2022-07-25)
PROC: 5A0935A Assistance with Respiratory Ventilation, Less than 24 Consecutive Hours, High Flow/Velocity Cannula (ICD-10-PCS; 2022-07-31)
PROC: 5A09357 Assistance with Respiratory Ventilation, Less than 24 Consecutive Hours, Continuous Positive Airway Pressure (ICD-10-PCS; 2022-08-01)
PROC: 5A0935A Assistance with Respiratory Ventilation, Less than 24 Consecutive Hours, High Flow/Velocity Cannula (ICD-10-PCS; 2022-08-01)
PROC: 5A09357 Assistance with Respiratory Ventilation, Less than 24 Consecutive Hours, Continuous Positive Airway Pressure (ICD-10-PCS; 2022-08-02)
PROC: 5A09357 Assistance with Respiratory Ventilation, Less than 24 Consecutive Hours, Continuous Positive Airway Pressure (ICD-10-PCS; 2022-08-03)
PROC: 5A0935A Assistance with Respiratory Ventilation, Less than 24 Consecutive Hours, High Flow/Velocity Cannula (ICD-10-PCS; 2022-08-03)
PROC: 5A09357 Assistance with Respiratory Ventilation, Less than 24 Consecutive Hours, Continuous Positive Airway Pressure (ICD-10-PCS; 2022-08-04)
PROC: 5A09357 Assistance with Respiratory Ventilation, Less than 24 Consecutive Hours, Continuous Positive Airway Pressure (ICD-10-PCS; 2022-08-05)
PROC: 5A0935A Assistance with Respiratory Ventilation, Less than 24 Consecutive Hours, High Flow/Velocity Cannula (ICD-10-PCS; 2022-08-05)
PROC: 5A09357 Assistance with Respiratory Ventilation, Less than 24 Consecutive Hours, Continuous Positive Airway Pressure (ICD-10-PCS; 2022-08-06)
DX: A41.9 Sepsis, unspecified organism (principal); J69.0 Pneumonitis due to inhalation of food and vomit; J96.01 Acute respiratory failure with hypoxia; R65.21 Severe sepsis with septic shock; J96.02 Acute respiratory failure with hypercapnia; I50.23 Acute on chronic systolic (congestive) heart failure; L89.152 Pressure ulcer of sacral region, stage 2; F03.90 Unspecified dementia, unspecified severity, without behavioral disturbance, psychotic disturbance, mood disturbance, and anxiety; I48.91 Unspecified atrial fibrillation; E78.5 Hyperlipidemia, unspecified; R13.10 Dysphagia, unspecified; K21.9 Gastro-esophageal reflux disease without esophagitis; E87.6 Hypokalemia; I11.0 Hypertensive heart disease with heart failure; I48.20 Chronic atrial fibrillation, unspecified; N39.0 Urinary tract infection, site not specified; E83.42 Hypomagnesemia; Z20.822 Contact with and (suspected) exposure to COVID-19; Z88.1 Allergy status to other antibiotic agents; Z88.8 Allergy status to other drugs, medicaments and biological substances; Z79.899 Other long term (current) drug therapy; Z93.1 Gastrostomy status; Z79.01 Long term (current) use of anticoagulants; Z90.49 Acquired absence of other specified parts of digestive tract
CPT/HCPCS: 31500; 36415; 36430; 36600; 70450; 71045; 80048; 80053; 81001; 82140; 82803; 82948; 83605; 83735; 83880; 84100; 84443; 84484; 85018; 85025; 86886; 86900; 86901; 86920; 87040; 87070; 87081; 87086; 87205; 92526; 93005; 94002; 94003; 94640; 94660; 96365; 96368; 99291; J1644; J1940; J2020; J2060; J2185; J2270; J2370; J2543; J2704; J3475; J3480; J3490; J7030; J7060; P9016; Q0092

== ENCOUNTER 2022-11-16 13:27 | Inpatient (IN) | payer OTHER, MEDICARE ==
[~2022-11-16] VITALS: Ht 162.6 cm; Wt 53.5 kg
[~2022-11-16 13:27] MED LIST changes: +BISA-213 RC; +DOCU-299 GT; -LINE600T4 PO; -LOSA100T2 GT; +MAGN400S60 GT; -MUPI2CRE22 NS; -NUTR30LI2 GT; +NUTR30LI3 GT; +NYST-71 TP; -PIPE1SOL IV; +PRO5 GT; -VANC125C10 PO
[2022-11-16 13:30] VITALS: BP 114/55; PULSE 98; RESP 24; TEMP 101.6; O2SAT 96
[2022-11-16] MEDS ORDERED: NACL 0.9% 2,000 ML IV ONE (13:40)
[2022-11-16 14:02] LABS: HEMATOCRIT 36.7 % (36-48); HEMOGLOBIN 11.7 g/dL (12.0-16.0); MEAN CORPUSCULAR HEMOGLOBIN 27 pg (27-31); MEAN CORPUSCULAR HGB CONC 32 g/dL (33-37); MEAN CORPUSCULAR VOLUME 86.1 fL (80-94); PLATELET COUNT (AUTO) 189 K/uL (140-450); RED BLOOD CELL COUNT(AUTO) 4.26 MIL/uL (4.20-5.40); RED CELL DISTRIBUTION WIDTH 15.2 % (11.6-13.7); WHITE BLOOD COUNT (AUTO) 24.5 K/uL (4.8-10.8)
[2022-11-16] MEDS ORDERED: cefTRIAXone 1,000 MG VIAL ONE ×2 (14:09→19:57)
[2022-11-16 14:22] LABS: LACTIC ACID 1.6 mmol/L (0.4-2.0)
[2022-11-16 14:29] LABS: ALANINE AMINOTRANSFERASE 30 U/L (12-78); ALKALINE PHOSPHATASE 129 U/L (50-136); ANION GAP 10.4 (8-16); ASPARTATE AMINOTRANSFERASE 34 U/L (15-37); CALCIUM 8.8 mg/dL (8.5-10.1); CARBON DIOXIDE 31.4 mmol/L (21-32); CHLORIDE 101 mmol/L (98-107); GLUCOSE 157 mg/dL (74-106); POTASSIUM 4.8 mmol/L (3.5-5.1); SODIUM SERUM 138 mmol/L (136-145); TOTAL BILIRUBIN 0.6 mg/dL (0.0-1.0); TOTAL PROTEIN, SERUM 6.8 g/dL (6.4-8.2); UREA NITROGEN, BLOOD 46 mg/dL (7-18)
[2022-11-16] MEDS ORDERED: ACETAMINOPHEN 650 MG SUPP RC ONE (14:30)
[2022-11-16 14:39] LABS: APPEARANCE,URINE TURBID (CLEAR); BILIRUBIN,URINE 1+ (NEGATIVE); COLOR,URINE YELLOW (YELLOW); UGLUCOSE NEGATIVE (NEGATIVE)
[2022-11-16 14:40] LABS: BLOOD, URINE 3+ (NEGATIVE); LEUKOCYTE ESTERASE ,URINE 3+ (NEGATIVE)
[2022-11-16 14:41] LABS: NITRITE, URINE POSITIVE (NEGATIVE); PROTEIN,URINE 2+ (NEGATIVE); UROBILINOGEN,URINE 0.2 EU/dL (0.2 - 1)
[2022-11-16 14:44] LABS: BACTERIA,URINE 2+ /HPF (None Seen); ICTOTEST NEGATIVE (NEGATIVE); MUCUS,URINE 2+ /LPF (None Seen); RBC,URINE 50-80 /HPF (0-5); TRICHOMONAS,URINE None Seen /HPF (None Seen); WBC,URINE TOO MANY TO COUNT /HPF (0-5); YEAST,URINE None Seen /HPF (None Seen)
[2022-11-16 14:52] LABS: BASOPHILS % (MANUAL) 1 % (0-2); LYMPHOCYTES % (MANUAL) 10 % (20-46); MONOCYTES % (MANUAL) 2 % (5-12); PLATELET ESTIMATE ADEQUATE
[2022-11-16 15:22] LABS: CREATININE 1.4 mg/dL (0.6-1.3)
[2022-11-16] MEDS ORDERED: NACL 0.9% 1,000 ML IV ONE (18:30)
[2022-11-16] MEDS ORDERED: ONDANSETRON 4 MG/2 ML VIAL IVP PRN (19:15)
[2022-11-16] MEDS ORDERED: MAG SULF 2000 MG/WATER PREMIX 50 ML IV PRN (19:15)
[2022-11-16] MEDS ORDERED: MAGNESIUM OXIDE 400 MG TAB PO PRN (19:15)
[2022-11-16] MEDS ORDERED: HYDROcodone/APAP 5/325 MG 1 TAB TAB PO PRN (19:15)
[2022-11-16] MEDS ORDERED: KCL 20 MEQ IN 100 mL PREMIX 200 ML IV PRN (19:15)
[2022-11-16] MEDS ORDERED: POTASSIUM CHLORIDE 10 MEQ TABER PO PRN (19:15)
[2022-11-16] MEDS ORDERED: MORPHINE SULFATE 2 MG/ML SYR IVP PRN (19:15)
[2022-11-16] MEDS: NACL 0.9% 1,000 ML IV SCH (20:07)
[2022-11-16 22:37] LABS: INR 1.31 (0.8-1.2); PARTIAL THROMBOPLASTIN TIME 35.5 secs (22-35.6); PROTHROMBIN TIME 13.5 secs (10.8-13.4)
[2022-11-16 22:43] VITALS: BP 91/56; PULSE 84; PULSE 97; RESP 18; TEMP 99; O2SAT 99
[2022-11-16 23:52] VITALS: PULSE 97
[2022-11-17] VITALS (9 sets, daily range): BP systolic 72–134; BP diastolic 33–74; PULSE 74–118; RESP 17–20; TEMP 97–98.7; O2SAT 93–100
[2022-11-17] MEDS ORDERED: ALBUMIN HUMAN 25% 100 ML IV ONE (00:28)
[2022-11-17] MEDS: ALBUMIN HUMAN 25% 100 ML IV SCH ×3 (04:56→21:00)
[2022-11-17 06:14] LABS: BASOPHILS % (AUTO) 0.1 % (0.0-2.0); EOSINOPHILS % (AUTO) 0.2 % (0.0-4.0); HEMATOCRIT 30.6 % (36-48); HEMOGLOBIN 9.9 g/dL (12.0-16.0); LYMPHOCYTES # (AUTO) 0.8 K/uL (2.5-16.5); LYMPHOCYTES % (AUTO) 3.7 % (20.5-51.1); MEAN CORPUSCULAR HEMOGLOBIN 28 pg (27-31); MEAN CORPUSCULAR HGB CONC 32 g/dL (33-37); MEAN CORPUSCULAR VOLUME 85.4 fL (80-94); MONOCYTES # (AUTO) 1.6 K/uL (0.8-1.0); MONOCYTES % (AUTO) 7.4 % (1.7-9.3); NEUTROPHILS # (AUTO) 19.7 K/uL (1.8-7.7); NEUTROPHILS % (AUTO) 88.6 % (42.2-75.2); PLATELET COUNT (AUTO) 160 K/uL (140-450); RED BLOOD CELL COUNT(AUTO) 3.58 MIL/uL (4.20-5.40); RED CELL DISTRIBUTION WIDTH 15.3 % (11.6-13.7); WHITE BLOOD COUNT (AUTO) 22.2 K/uL (4.8-10.8)
[2022-11-17 06:33] LABS: ALANINE AMINOTRANSFERASE 28 U/L (12-78); ALBUMIN 2.2 g/dL (3.4-5.0); ALKALINE PHOSPHATASE 117 U/L (50-136); ANION GAP 11.7 (8-16); ASPARTATE AMINOTRANSFERASE 38 U/L (15-37); CALCIUM 8.6 mg/dL (8.5-10.1); CARBON DIOXIDE 27.6 mmol/L (21-32); CHLORIDE 108 mmol/L (98-107); CREATININE 1.3 mg/dL (0.6-1.3); GLUCOSE 111 mg/dL (74-106); MAGNESIUM 1.8 mg/dL (1.8-2.4); POTASSIUM 4.3 mmol/L (3.5-5.1); SODIUM SERUM 143 mmol/L (136-145); TOTAL BILIRUBIN 0.4 mg/dL (0.0-1.0); TOTAL PROTEIN, SERUM 6.4 g/dL (6.4-8.2); UREA NITROGEN, BLOOD 39 mg/dL (7-18)
[2022-11-17] MEDS: NACL 0.9% 1,000 ML IV SCH ×2 (07:45→20:15)
[2022-11-17] MEDS: ACETAMINOPHEN 325 MG TAB PO PRN (14:17)
[2022-11-17] MEDS ORDERED: KETOROLAC 15 MG/ML VIAL IVP PRN (15:25)
[2022-11-18] VITALS (10 sets, daily range): BP systolic 100–150; BP diastolic 41–85; PULSE 66–127; RESP 18–19; TEMP 97.6–99.1; O2SAT 93–99
[2022-11-18] MEDS: ALBUMIN HUMAN 25% 100 ML IV SCH ×4 (01:41→20:29)
[2022-11-18 04:30] LABS: HEMATOCRIT 29.2 % (36-48); HEMOGLOBIN 9.3 g/dL (12.0-16.0); MEAN CORPUSCULAR HEMOGLOBIN 28 pg (27-31); MEAN CORPUSCULAR HGB CONC 32 g/dL (33-37); MEAN CORPUSCULAR VOLUME 87.2 fL (80-94); PLATELET COUNT (AUTO) 120 K/uL (140-450); RED BLOOD CELL COUNT(AUTO) 3.35 MIL/uL (4.20-5.40); RED CELL DISTRIBUTION WIDTH 15.7 % (11.6-13.7); WHITE BLOOD COUNT (AUTO) 15.7 K/uL (4.8-10.8)
[2022-11-18 04:47] LABS: ALANINE AMINOTRANSFERASE 28 U/L (12-78); ALBUMIN 2.7 g/dL (3.4-5.0); ALKALINE PHOSPHATASE 134 U/L (50-136); ANION GAP 12.5 (8-16); ASPARTATE AMINOTRANSFERASE 40 U/L (15-37); CALCIUM 8.7 mg/dL (8.5-10.1); CHLORIDE 110 mmol/L (98-107); CREATININE 1.1 mg/dL (0.6-1.3); GLUCOSE 86 mg/dL (74-106); MAGNESIUM 1.9 mg/dL (1.8-2.4); POTASSIUM 3.5 mmol/L (3.5-5.1); SODIUM SERUM 146 mmol/L (136-145); TOTAL BILIRUBIN 0.6 mg/dL (0.0-1.0); TOTAL PROTEIN, SERUM 6.5 g/dL (6.4-8.2); UREA NITROGEN, BLOOD 36 mg/dL (7-18)
[2022-11-18 05:01] LABS: BASOPHILS % (MANUAL) 0 % (0-2); EOSINOPHILS % (MANUAL) 0 % (0-4); LYMPHOCYTES % (MANUAL) 19 % (20-46); MONOCYTES % (MANUAL) 4 % (5-12); SMUDGE CELLS FEW
[2022-11-18] MEDS: NACL 0.9% 1,000 ML IV SCH ×3 (06:37→22:54)
[2022-11-19] VITALS (9 sets, daily range): BP systolic 124–148; BP diastolic 65–76; PULSE 85–145; RESP 18–20; TEMP 97.9–99.7; O2SAT 94–99
[2022-11-19] MEDS: ALBUMIN HUMAN 25% 100 ML IV SCH (05:15)
[2022-11-19 05:17] LABS: BASOPHILS % (AUTO) 0.3 % (0.0-2.0); EOSINOPHILS # (AUTO) 0.1 K/uL (0-0.4); EOSINOPHILS % (AUTO) 1.2 % (0.0-4.0); HEMATOCRIT 27.7 % (36-48); HEMOGLOBIN 8.8 g/dL (12.0-16.0); LYMPHOCYTES # (AUTO) 0.7 K/uL (2.5-16.5); LYMPHOCYTES % (AUTO) 6.2 % (20.5-51.1); MEAN CORPUSCULAR HEMOGLOBIN 28 pg (27-31); MEAN CORPUSCULAR HGB CONC 32 g/dL (33-37); MEAN CORPUSCULAR VOLUME 86.2 fL (80-94); MONOCYTES # (AUTO) 1.7 K/uL (0.8-1.0); MONOCYTES % (AUTO) 13.8 % (1.7-9.3); NEUTROPHILS # (AUTO) 9.4 K/uL (1.8-7.7); NEUTROPHILS % (AUTO) 78.5 % (42.2-75.2); PLATELET COUNT (AUTO) 142 K/uL (140-450); RED BLOOD CELL COUNT(AUTO) 3.21 MIL/uL (4.20-5.40); RED CELL DISTRIBUTION WIDTH 15.6 % (11.6-13.7)
[2022-11-19 05:32] LABS: ALANINE AMINOTRANSFERASE 25 U/L (12-78); ALBUMIN 2.9 g/dL (3.4-5.0); ALKALINE PHOSPHATASE 140 U/L (50-136); ANION GAP 11.2 (8-16); ASPARTATE AMINOTRANSFERASE 27 U/L (15-37); CALCIUM 8.5 mg/dL (8.5-10.1); CARBON DIOXIDE 26.2 mmol/L (21-32); CHLORIDE 113 mmol/L (98-107); GLUCOSE 195 mg/dL (74-106); MAGNESIUM 1.8 mg/dL (1.8-2.4); POTASSIUM 3.4 mmol/L (3.5-5.1); SODIUM SERUM 147 mmol/L (136-145); TOTAL BILIRUBIN 0.4 mg/dL (0.0-1.0); TOTAL PROTEIN, SERUM 6.4 g/dL (6.4-8.2); UREA NITROGEN, BLOOD 35 mg/dL (7-18)
[2022-11-19] MEDS: NACL 0.9% 1,000 ML IV SCH ×2 (09:45→17:32)
[2022-11-19] MEDS ORDERED: ALGINATE ROPE MC PRN (11:55)
[2022-11-19] MEDS ORDERED: METOPROLOL 5 MG/5 ML VIAL IV SCH (12:13)
[2022-11-19] MEDS ORDERED: METOPROLOL 5 MG/5 ML VIAL IV ONE (12:15)
[2022-11-19] MEDS ORDERED: METOPROLOL 25 MG TAB PO SCH (12:45)
[2022-11-19] MEDS: ALGINATE ROPE MC SCH (13:00)
[2022-11-19] MEDS: ERTAPENEM SODIUM 1,000 MG in NACL 0.9% 50 ML IV SCH (14:25)
[2022-11-19] MEDS ORDERED: DILTIAZEM 25 MG/5 ML VIAL IVP SCH (18:00)
[2022-11-19] MEDS: METOPROLOL 50 MG TAB PO SCH (20:36)
[2022-11-20] VITALS (11 sets, daily range): BP systolic 110–157; BP diastolic 54–85; PULSE 75–133; RESP 18–20; TEMP 97.4–98.6; O2SAT 97–100
[2022-11-20 04:51] LABS: BASOPHILS # (AUTO) 0.1 K/uL (0.00-0.22); BASOPHILS % (AUTO) 0.5 % (0.0-2.0); EOSINOPHILS # (AUTO) 0.2 K/uL (0-0.4); EOSINOPHILS % (AUTO) 1.7 % (0.0-4.0); HEMATOCRIT 31.7 % (36-48); LYMPHOCYTES # (AUTO) 1.1 K/uL (2.5-16.5); LYMPHOCYTES % (AUTO) 9.4 % (20.5-51.1); MEAN CORPUSCULAR HEMOGLOBIN 28 pg (27-31); MEAN CORPUSCULAR HGB CONC 32 g/dL (33-37); MEAN CORPUSCULAR VOLUME 88.2 fL (80-94); MONOCYTES # (AUTO) 2.1 K/uL (0.8-1.0); MONOCYTES % (AUTO) 17.4 % (1.7-9.3); NEUTROPHILS # (AUTO) 8.5 K/uL (1.8-7.7); PLATELET COUNT (AUTO) 132 K/uL (140-450); RED CELL DISTRIBUTION WIDTH 16.3 % (11.6-13.7); WHITE BLOOD COUNT (AUTO) 11.9 K/uL (4.8-10.8)
[2022-11-20 05:08] LABS: ALANINE AMINOTRANSFERASE 22 U/L (12-78); ALBUMIN 3.1 g/dL (3.4-5.0); ALKALINE PHOSPHATASE 149 U/L (50-136); ASPARTATE AMINOTRANSFERASE 24 U/L (15-37); CALCIUM 8.5 mg/dL (8.5-10.1); CARBON DIOXIDE 27.1 mmol/L (21-32); CHLORIDE 115 mmol/L (98-107); GLUCOSE 168 mg/dL (74-106); MAGNESIUM 1.8 mg/dL (1.8-2.4); POTASSIUM 4.1 mmol/L (3.5-5.1); SODIUM SERUM 150 mmol/L (136-145); TOTAL BILIRUBIN 0.4 mg/dL (0.0-1.0); TOTAL PROTEIN, SERUM 6.7 g/dL (6.4-8.2); UREA NITROGEN, BLOOD 27 mg/dL (7-18)
[2022-11-20] MEDS: NACL 0.9% 1,000 ML IV SCH (05:56)
[2022-11-20] MEDS: METOPROLOL 50 MG TAB PO SCH ×2 (08:27→20:15)
[2022-11-20] MEDS: ALGINATE ROPE MC SCH (13:00)
[2022-11-20] MEDS: ERTAPENEM SODIUM 1,000 MG in NACL 0.9% 50 ML IV SCH (13:22)
[2022-11-20] MEDS: ACETAMINOPHEN 325 MG TAB PO PRN (20:16)
[2022-11-20] MEDS ORDERED: METOPROLOL 25 MG TAB GT STA (23:52)
[2022-11-21] VITALS (13 sets, daily range): BP systolic 90–159; BP diastolic 51–81; PULSE 74–146; RESP 18–20; TEMP 96.8–98.8; O2SAT 94–99
[2022-11-21 04:54] LABS: BASOPHILS % (AUTO) 0.1 % (0.0-2.0); EOSINOPHILS # (AUTO) 0.4 K/uL (0-0.4); EOSINOPHILS % (AUTO) 2.7 % (0.0-4.0); HEMOGLOBIN 8.6 g/dL (12.0-16.0); LYMPHOCYTES # (AUTO) 0.9 K/uL (2.5-16.5); LYMPHOCYTES % (AUTO) 6.4 % (20.5-51.1); MEAN CORPUSCULAR HEMOGLOBIN 28 pg (27-31); MEAN CORPUSCULAR HGB CONC 32 g/dL (33-37); MEAN CORPUSCULAR VOLUME 87.1 fL (80-94); MONOCYTES # (AUTO) 2.2 K/uL (0.8-1.0); MONOCYTES % (AUTO) 15.3 % (1.7-9.3); NEUTROPHILS # (AUTO) 10.8 K/uL (1.8-7.7); NEUTROPHILS % (AUTO) 75.5 % (42.2-75.2); PLATELET COUNT (AUTO) 137 K/uL (140-450); RED CELL DISTRIBUTION WIDTH 15.8 % (11.6-13.7); WHITE BLOOD COUNT (AUTO) 14.4 K/uL (4.8-10.8)
[2022-11-21 05:15] LABS: ALANINE AMINOTRANSFERASE 19 U/L (12-78); ALBUMIN 2.5 g/dL (3.4-5.0); ALKALINE PHOSPHATASE 134 U/L (50-136); ANION GAP 8.8 (8-16); ASPARTATE AMINOTRANSFERASE 18 U/L (15-37); CALCIUM 8.3 mg/dL (8.5-10.1); CARBON DIOXIDE 28.3 mmol/L (21-32); CHLORIDE 115 mmol/L (98-107); CREATININE 0.8 mg/dL (0.6-1.3); GLUCOSE 147 mg/dL (74-106); MAGNESIUM 1.7 mg/dL (1.8-2.4); POTASSIUM 4.1 mmol/L (3.5-5.1); SODIUM SERUM 148 mmol/L (136-145); TOTAL BILIRUBIN 0.4 mg/dL (0.0-1.0); TOTAL PROTEIN, SERUM 5.8 g/dL (6.4-8.2); UREA NITROGEN, BLOOD 27 mg/dL (7-18)
[2022-11-21] MEDS: METOPROLOL 50 MG TAB PO SCH ×2 (08:17→21:07)
[2022-11-21] MEDS ORDERED: DIGOXIN 0.25 MG/ML AMP IV SCH (10:00)
[2022-11-21] MEDS: ALGINATE ROPE MC SCH (13:00)
[2022-11-21] MEDS: FUROSEMIDE 20 MG/2 ML VIAL IVP SCH ×2 (13:42→21:44)
[2022-11-21] MEDS: ERTAPENEM SODIUM 1,000 MG in NACL 0.9% 50 ML IV SCH (14:36)
[2022-11-21] MEDS: DIGOXIN 0.25 MG/ML AMP IV SCH ×2 (15:09→18:22)
[2022-11-22] VITALS (11 sets, daily range): BP systolic 125–151; BP diastolic 52–61; PULSE 65–85; RESP 16–18; TEMP 97.4–97.9; O2SAT 95–99
[2022-11-22] MEDS: FUROSEMIDE 20 MG/2 ML VIAL IVP SCH (08:39)
[2022-11-22] MEDS: METOPROLOL 50 MG TAB PO SCH (08:39)
[2022-11-22] MEDS ORDERED: DIGO-119 PO (08:51)
[2022-11-22] MEDS ORDERED: METO50TA99 PO (08:51)
[2022-11-22] MEDS ORDERED: DIGOXIN 0.25 MG/ML AMP IV SCH (09:00)
== END 2022-11-22 14:00 | DRG 720 ==
LOC: MED 13:27 → MTU 19:14
PROVIDERS: ADMIT Hospitalist; ATTEND Hospitalist
DX: A41.59 Other Gram-negative sepsis (principal); J69.0 Pneumonitis due to inhalation of food and vomit; G93.41 Metabolic encephalopathy; E43 Unspecified severe protein-calorie malnutrition; L89.159 Pressure ulcer of sacral region, unspecified stage; F03.90 Unspecified dementia, unspecified severity, without behavioral disturbance, psychotic disturbance, mood disturbance, and anxiety; I48.91 Unspecified atrial fibrillation; I11.0 Hypertensive heart disease with heart failure; R13.10 Dysphagia, unspecified; N39.0 Urinary tract infection, site not specified; E78.5 Hyperlipidemia, unspecified; I50.32 Chronic diastolic (congestive) heart failure; K21.9 Gastro-esophageal reflux disease without esophagitis; Z88.1 Allergy status to other antibiotic agents; Z93.1 Gastrostomy status; Z88.2 Allergy status to sulfonamides; B96.4 Proteus (mirabilis) (morganii) as the cause of diseases classified elsewhere
CPT/HCPCS: 36415; 70450; 71045; 71250; 80053; 81001; 83605; 83735; 83880; 84484; 85025; 85610; 85730; 86886; 86900; 86901; 87040; 87081; 87086; 96361; 96365; 97110; 97112; 97163-GP; 97530; 99291; J0696; J1160; J1335; J1644; J1885; J1940; J2405; J3490; J7060; P9046; Q0092